=== PATIENT | male | born 1935 | race American Indian/Alaskan Native ===

== ENCOUNTER 2016-08-05 14:12 | Emergency (ER) | payer MEDICARE, OTHER ==
[2016-08-05 15:36] VITALS: BP 99/58
--- NOTE | 2016-08-05 16:57 | Emergency Department Report ---
HPI - General Chief Complaint: Chest Pain Time Seen by Provider: 08/05/16 16:18 - HPI HPI: This is an 81-year-old Afro[place] male presents to the emergency department by EMS from dialysis with complaint of having some abdominal pain and chest pain at that time the cause them to cut short his dialysis session. However at this current time the patient says that he is asymptomatic and all of these pains are gone away. He thinks it was just because he was getting dialysis at that time. He cannot remember his launch check out and says his primary care physician is a Dr. Vasquez. He has a past medical history of anemia and chronic kidney disease, end-stage renal disease on dialysis, hypercholesterolemia, hypertension. The patient's son was gone for a few minutes but is not bedside. The patient says that since he is asymptomatic that he wants to be discharged home. ED Past Medical Hx - Past Medical History Hx Hypertension: Yes Hx Heart Attack/AMI: Yes Hx Congestive Heart Failure: Yes Hx Deep Vein Thrombosis: No Hx Pulmonary Embolism: No Hx GERD: Yes Hx Renal Disease: Yes Hx Seizures: No Hx Kidney Stones: No Hx Asthma: Yes Hx COPD: Yes Hx Tuberculosis: No Hx Dementia: Yes Hx HIV: Yes Additional medical history: History of spontaneous pneumothorax in the past. Most of PMH obtained through old chart, as family and patient are very poor historians. - Surgical History Hx Coronary Stent: (PT AND PT SON DENIES CARDIAC STENT 03/05/13 IN PRE-OP.) Hx Pacemaker: No Hx Internal Defibrillator: No - Social History Smoking Status: Never Smoker Substance Use Type: None - Medications Home Medications: Home Medications Medication Instructions Recorded Confirmed Last Taken Type Sodium Bicarbonate 650 mg PO BID 11/28/12 08/05/16 08/05/16 History Atazanavir Sulfate [Reyataz] 200 mg PO BID 12/12/12 08/05/16 08/05/16 History Vit B Cplx #11/FA/C/Biot/Zn Ox 1 each PO DAILY 04/14/14 08/05/16 08/05/16 History [Dialyvite with Zinc Tablet] lamiVUDine [Epivir Hbv] 150 mg PO QDAY 04/14/14 08/05/16 08/05/16 History Temazepam [Restoril] 30 mg PO QHS 09/12/15 08/05/16 08/05/16 History Acetaminophen [Acetaminophen TAB] 325 mg PO PRN PRN 08/05/16 08/05/16 Unknown History Lanthanum Carbonate [Fosrenol] 1,000 mg PO AC 08/05/16 08/05/16 08/05/16 History Nevirapine [Viramune] 200 mg PO BID 08/05/16 08/05/16 08/05/16 History Nitroglycerin [Nitrostat] 0.4 mg PO PRN PRN MDD 3 doses 08/05/16 08/05/16 Unknown History Omeprazole Magnesium [PriLOSEC Otc] 20 mg PO QDAY 08/05/16 08/05/16 08/05/16 History cloNIDine [Catapres] 0.2 mg PO PRN PRN 08/05/16 08/05/16 Unknown History ED Review of Systems ROS: Stated complaint: ABD PAIN Other details as noted in HPI Comment: All other systems reviewed and negative Constitutional: denies: chills, fever Eyes: denies: eye pain, eye discharge, vision change ENT: denies: ear pain, throat pain Respiratory: denies: cough, shortness of breath, wheezing Cardiovascular: chest pain. denies: edema Gastrointestinal: abdominal pain. denies: vomiting Genitourinary: denies: urgency, dysuria Musculoskeletal: denies: back pain, joint swelling, arthralgia Skin: denies: rash, lesions Neurological: denies: headache, weakness, paresthesias Physical Exam - Physical Exam Vital Signs: Vital Signs 08/05/16 15:00 Temperature 97.2 F L Pulse Rate 82 Respiratory 16 Rate Blood Pressure 99/58 Blood Pressure 99/58 [Right] O2 Sat by Pulse 99 Oximetry Physical Exam: GENERAL: The patient is well-developed well-nourished. HEENT: Normocephalic. Atraumatic. Extraocular motions are intact. Patient has moist mucous membranes. NECK: Trachea is midline. CHEST/LUNGS: Clear to auscultation. There is no respiratory distress noted. HEART/CARDIOVASCULAR: Regular. There is no tachycardia. There is no gallop rub or murmur. ABDOMEN: Abdomen is soft, nontender. Patient has normal bowel sounds. There is no abdominal distention. SKIN: There is no rash. There is no edema. There is no diaphoresis. NEURO: The patient is awake, alert. AAO [address] but not time. The patient is cooperative. The patient has no focal neurologic deficits. The patient has normal speech. MUSCULOSKELETAL: There is no tenderness or deformity. There is no limitation range of motion. There is no evidence of acute injury. ED Course Vital Signs 08/05/16 15:00 Temperature 97.2 F L Pulse Rate 82 Respiratory 16 Rate Blood Pressure 99/58 Blood Pressure 99/58 [Right] O2 Sat by Pulse 99 Oximetry ED Medical Decision Making - Lab Data Result diagrams: 08/05/16 18:23 08/05/16 18:23 - EKG Data -: EKG Interpreted by Me EKG shows normal: sinus rhythm, axis, intervals, QRS complexes, ST-T waves ( nonspecific ST-T changes) Rate: normal - EKG Data When compared to previous EKG there are: previous EKG unavailable Interpretation: nonspecific ST-T wave emily - Medical Decision Making 81-year-old male presents to the emergency department with some chest pain and abdominal pain that occurred during dialysis. His symptoms have resolved. The patient refused any imaging. At first I believe he had refused labs as well but appears as if they got some on him. However it did not matter as the patient said that he wanted to leave and would not stay for any further imaging or testing and certainly did not appear willing to stay for any admission. I spoke with the patient regarding the concern for his comorbidities, advanced age , and complaints of chest and abdominal pain. He understands that there is a risk of heart attack, disability, coma, but the patient still would like to leave AGAINST MEDICAL ADVICE. However the patient does have some history of dementia and is AAO 2 so I made sure that the patient's son was bedside. He is not necessarily has DPO a but he has been next of kin. The same concerns were discussed with the son who says that if his father wants to leave that he should be allowed to do so. Both father and son have signed the AMA form. I let them know that if he changes his mind that he would be welcome back with open arms and will continue his evaluation. Critical Care Time: No Critical care attestation.: If time is entered above; I have spent that time in minutes in the direct care of this critically ill patient, excluding procedure time. ED Disposition Clinical Impression: ESRD (end stage renal disease) Chest pain Qualifiers: Chest pain type: unspecified Qualified Code(s): R07.9 - Chest pain, unspecified Abdominal pain Qualifiers: Abdominal location: generalized Qualified Code(s): R10.84 - Generalized abdominal pain Disposition: - LEFT AGAINST MED ADVICE Is pt being admited?: No Condition: Stable Instructions: Chest Pain (ED) Referrals: PRIMARY CARE, [Primary Care Provider] - 3-5 Days Forms: AMA Form
[2016-08-05 18:40] LABS: Basophils % (Auto) 0.5 % (0.0-1.8); Eosinophils % (Auto) 0.9 % (0.0-4.3); Hematocrit 37.9 % (35.5-45.6); Hemoglobin 12.2 gm/dl (11.8-15.2); Mean Corpuscular HGB Conc 32 % (32-34); Mean Corpuscular Hemoglobin 31 pg (28-32); Mean Corpuscular Volume 96 fl (84-94); Platelet Count 201 K/mm3 (140-440); Red Blood Count 3.93 M/mm3 (3.65-5.03); Red Cell Distribution Width 14.5 % (13.2-15.2); White Blood Count 8.4 K/mm3 (4.5-11.0)
[2016-08-05 19:01] LABS: Albumin 4.4 g/dL (3.9-5); Albumin/Globulin Ratio 1.4 %; BUN/Creatinine Ratio 4.3; Bilirubin,Total 0.4 mg/dL (0.1-1.2); Calcium 9.9 mg/dL (8.4-10.2); Chloride 94.4 mmol/L (98-107); Potassium 4.5 mmol/L (3.6-5.0); Total Protein 7.6 g/dL (6.3-8.2)
== END 2016-08-05 17:12 | disposition left against medical advice (07) ==
LOC: ED 14:12
DX: I12.0 Hypertensive chronic kidney disease with stage 5 chronic kidney disease or end stage renal disease (principal); N18.6 End stage renal disease; R10.84 Generalized abdominal pain; R07.9 Chest pain, unspecified; I25.2 Old myocardial infarction; K21.9 Gastro-esophageal reflux disease without esophagitis; J44.9 Chronic obstructive pulmonary disease, unspecified
CPT/HCPCS: 36415; 80053; 80061; 83690; 84484; 85025; 93005; 93010; 99284

== ENCOUNTER 2016-12-06 21:13 | Inpatient (IN) | payer MEDICARE ==
[2016-12-06] MEDS ORDERED: PROVENTIL IH ONE (22:22)
[2016-12-06] MEDS ORDERED: ATROVENT IH ONE (22:22)
--- NOTE | 2016-12-06 22:23 | Emergency Department Report ---
ED General Adult HPI - General Chief complaint: Dyspnea/Respdistress Stated complaint: SOB Time Seen by Provider: 12/06/16 22:09 Source: patient, family (the patient is accompanied by a friend, who indicates that he is not the patient's biological son. The patient's friend/accompany him and is Mr. Hong Gutierrez), RN notes reviewed, old records reviewed Mode of arrival: Wheelchair Limitations: Other (patient is a poor historian) - History of Present Illness Initial comments: This is an 81-year-old male, the patient is previously unknown to this provider , past medical history includes end-stage renal disease on dialysis, hypertension, HIV, COPD and dementia. Patient is brought to the hospital by EMS with a complaint of shortness of breath. Patient indicates that he's been coughing for the past 3 days, and he feels short of breath he further indicates that he has chest wall tightness with coughing, he denies nausea, vomiting, diaphoresis. The patient is unable to describe exacerbating or relieving factors. Patient was found to have a large right-sided pneumothorax on portable 1 view chest x-ray, and he gave informed consent to have a pigtail catheter placed. I placed a pigtail catheter with one attempt with no obvious complications, patient tolerated the procedure well, and a postprocedure x-ray demonstrated reexpansion the lungs. Case was discussed with the Hospital physician, Dr. Morales, and she accepted the patient to the medical service for spontaneous pneumothorax, most likely in the context of chronic COPD. The case was also discussed with the metal forger's assistant on-call, Dr. Teixeira, who agreed with this plan of care, and indicated he would see the patient. -: Gradual Severity scale (0 -10): 10 Quality: aching Consistency: constant Improves with: none Worsens with: none Associated Symptoms: confusion, chest pain, cough, shortness of breath - Related Data Home Medications Medication Instructions Recorded Confirmed Last Taken Sodium Bicarbonate 650 mg PO BID 11/28/12 08/05/16 08/05/16 Atazanavir Sulfate [Reyataz] 200 mg PO BID 12/12/12 08/05/16 08/05/16 B Complex 11/Folic/C/Biot/Zinc 1 each PO DAILY 04/14/14 08/05/16 08/05/16 [Dialyvite with Zinc Tablet] lamiVUDine [Epivir Hbv] 150 mg PO QDAY 04/14/14 08/05/16 08/05/16 Temazepam [Restoril] 30 mg PO QHS 09/12/15 08/05/16 08/05/16 Acetaminophen [Acetaminophen TAB] 325 mg PO PRN PRN 08/05/16 08/05/16 Unknown Lanthanum Carbonate [Fosrenol] 1,000 mg PO AC 08/05/16 08/05/16 08/05/16 Nevirapine [Viramune] 200 mg PO BID 08/05/16 08/05/16 08/05/16 Nitroglycerin [Nitrostat] 0.4 mg PO PRN PRN MDD 3 doses 08/05/16 08/05/16 Unknown Omeprazole Magnesium [PriLOSEC Otc] 20 mg PO QDAY 08/05/16 08/05/16 08/05/16 cloNIDine [Catapres] 0.2 mg PO PRN PRN 08/05/16 08/05/16 Unknown Allergies Allergy/AdvReac Type Severity Reaction Status Date / Time No Known Allergies Allergy Verified 08/05/16 15:41 ED Review of Systems ROS: Stated complaint: SOB Other details as noted in HPI Constitutional: denies: fever Eyes: denies: eye discharge ENT: denies: epistaxis Respiratory: cough, shortness of breath Cardiovascular: chest pain Gastrointestinal: denies: vomiting Genitourinary: as per HPI Musculoskeletal: as per HPI Skin: as per HPI Neurological: as per HPI, confusion Psychiatric: as per HPI ED Past Medical Hx - Past Medical History Previous Medical History?: Yes Hx Hypertension: Yes Hx Heart Attack/AMI: Yes Hx Congestive Heart Failure: Yes Hx Deep Vein Thrombosis: No Hx Pulmonary Embolism: No Hx GERD: Yes Hx Renal Disease: Yes Hx Arthritis: Yes Hx Seizures: No Hx Kidney Stones: No Hx Asthma: Yes Hx COPD: Yes Hx Tuberculosis: No Hx Dementia: Yes Hx HIV: Yes Additional medical history: History of spontaneous pneumothorax in the past. Most of PMH obtained through old chart, as family and patient are very poor historians. - Surgical History Past Surgical History?: Yes Hx Coronary Stent: (PT AND PT SON DENIES CARDIAC STENT 03/05/13 IN PRE-OP.) Hx Pacemaker: No Hx Internal Defibrillator: No - Social History Smoking Status: Never Smoker Substance Use Type: None - Medications Home Medications: Home Medications Medication Instructions Recorded Confirmed Last Taken Type Sodium Bicarbonate 650 mg PO BID 11/28/12 08/05/16 08/05/16 History Atazanavir Sulfate [Reyataz] 200 mg PO BID 12/12/12 08/05/16 08/05/16 History B Complex 11/Folic/C/Biot/Zinc 1 each PO DAILY 04/14/14 08/05/16 08/05/16 History [Dialyvite with Zinc Tablet] lamiVUDine [Epivir Hbv] 150 mg PO QDAY 04/14/14 08/05/16 08/05/16 History Temazepam [Restoril] 30 mg PO QHS 09/12/15 08/05/16 08/05/16 History Acetaminophen [Acetaminophen TAB] 325 mg PO PRN PRN 08/05/16 08/05/16 Unknown History Lanthanum Carbonate [Fosrenol] 1,000 mg PO AC 08/05/16 08/05/16 08/05/16 History Nevirapine [Viramune] 200 mg PO BID 08/05/16 08/05/16 08/05/16 History Nitroglycerin [Nitrostat] 0.4 mg PO PRN PRN MDD 3 doses 08/05/16 08/05/16 Unknown History Omeprazole Magnesium [PriLOSEC Otc] 20 mg PO QDAY 08/05/16 08/05/16 08/05/16 History cloNIDine [Catapres] 0.2 mg PO PRN PRN 08/05/16 08/05/16 Unknown History ED Physical Exam - General Limitations: Other (patient is demented, patient is a poor historian) General appearance: alert, in no apparent distress - Head Head exam: Present: atraumatic, normocephalic - Eye Eye exam: Present: normal appearance - ENT ENT exam: Present: normal exam, normal orophraynx, mucous membranes moist - Neck Neck exam: Present: normal inspection, full ROM. Absent: tenderness, meningismus - Respiratory Respiratory exam: Present: respiratory distress, accessory muscle use, decreased breath sounds - Cardiovascular Cardiovascular Exam: Present: normal rhythm, tachycardia, normal heart sounds. Absent: systolic murmur, diastolic murmur, rubs, gallop - GI/Abdominal GI/Abdominal exam: Present: soft, normal bowel sounds. Absent: distended, tenderness, guarding, rebound, rigid, pulsatile mass - Rectal Rectal exam: Present: deferred - Extremities Exam Extremities exam: Present: normal inspection, full ROM, normal capillary refill , other (there is a left upper extremity AV fistula, appropriate throat, no redness, pus or streaking). Absent: calf tenderness - Back Exam Back exam: Present: normal inspection. Absent: paraspinal tenderness, vertebral tenderness - Neurological Exam Neurological exam: Present: alert, other (Extraocular movements intact. Tongue midline. No facial droop. Facial sensation intact to light touch in the V1, V2 , V3 distribution bilaterally. 5 and 5 strength in 4 extremities.. Sensation is intact to light touch in 4 extremities.). Absent: motor sensory deficit - Psychiatric Psychiatric exam: Present: normal affect, normal mood - Skin Skin exam: Present: warm, dry, intact, normal color. Absent: rash ED Course Vital Signs 12/06/16 12/06/16 12/06/16 21:26 21:28 21:44 Temperature 97.3 F L 97 F L 97.3 F L Pulse Rate 111 H 122 H 111 H Respiratory 24 24 Rate Blood Pressure 105/55 105/65 Blood Pressure 105/56 [Right] O2 Sat by Pulse 70 L 78 L 89 Oximetry 12/06/16 12/06/16 12/06/16 21:45 21:46 21:48 Temperature Pulse Rate 92 H 107 H 106 H Respiratory 39 H 36 H 38 H Rate Blood Pressure 105/65 Blood Pressure [Right] O2 Sat by Pulse 70 L Oximetry 12/06/16 12/06/16 12/06/16 21:49 21:50 21:52 Temperature Pulse Rate 107 H 107 H 107 H Respiratory 40 H 33 H 44 H Rate Blood Pressure 105/65 105/65 105/65 Blood Pressure [Right] O2 Sat by Pulse Oximetry 12/06/16 12/06/16 12/06/16 21:54 21:58 23:10 Temperature Pulse Rate 109 H 102 H Respiratory 40 H 30 H 31 H Rate Blood Pressure 105/65 105/65 Blood Pressure [Right] O2 Sat by Pulse 89 86 84 Oximetry 12/06/16 12/06/16 12/06/16 23:12 23:14 23:16 Temperature Pulse Rate 103 H 105 H 105 H Respiratory 34 H 24 31 H Rate Blood Pressure 105/65 105/65 105/65 Blood Pressure [Right] O2 Sat by Pulse 86 88 85 Oximetry 12/06/16 12/06/16 12/06/16 23:18 23:20 23:22 Temperature Pulse Rate 102 H 101 H 106 H Respiratory 35 H 34 H 17 Rate Blood Pressure 105/65 105/65 105/65 Blood Pressure [Right] O2 Sat by Pulse 87 86 100 Oximetry 12/06/16 12/06/16 12/06/16 23:24 23:26 23:28 Temperature Pulse Rate 104 H 102 H 103 H Respiratory 34 H 29 H 38 H Rate Blood Pressure 105/65 105/65 105/65 Blood Pressure [Right] O2 Sat by Pulse 87 87 87 Oximetry 12/06/16 12/06/16 12/06/16 23:30 23:32 23:34 Temperature Pulse Rate 108 H 106 H 106 H Respiratory 29 H 38 H 33 H Rate Blood Pressure 105/65 105/65 105/65 Blood Pressure [Right] O2 Sat by Pulse 91 100 84 Oximetry 12/06/16 12/06/16 12/06/16 23:36 23:38 23:40 Temperature Pulse Rate 104 H 108 H 108 H Respiratory 35 H 38 H 37 H Rate Blood Pressure 105/65 105/65 105/65 Blood Pressure [Right] O2 Sat by Pulse 85 94 83 L Oximetry 12/06/16 12/06/16 12/06/16 23:42 23:44 23:46 Temperature Pulse Rate 108 H 106 H 106 H Respiratory 39 H 32 H 34 H Rate Blood Pressure 105/65 105/65 105/65 Blood Pressure [Right] O2 Sat by Pulse 77 L 79 L 88 Oximetry 12/06/16 12/06/16 12/06/16 23:48 23:50 23:52 Temperature Pulse Rate 103 H 104 H 104 H Respiratory 34 H 25 H 25 H Rate Blood Pressure 105/65 105/65 105/65 Blood Pressure [Right] O2 Sat by Pulse 89 93 92 Oximetry 12/06/16 12/06/16 12/06/16 23:54 23:56 23:58 Temperature Pulse Rate 103 H 102 H 96 H Respiratory 29 H 17 21 Rate Blood Pressure 105/65 105/65 105/65 Blood Pressure [Right] O2 Sat by Pulse 91 49 L Oximetry 12/07/16 12/07/16 12/07/16 00:00 00:02 00:04 Temperature Pulse Rate 96 H 95 H 97 H Respiratory 14 19 22 Rate Blood Pressure 105/65 105/65 105/65 Blood Pressure [Right] O2 Sat by Pulse 38 L Oximetry 12/07/16 12/07/16 12/07/16 00:06 00:08 00:10 Temperature Pulse Rate 96 H 93 H 96 H Respiratory 13 16 11 L Rate Blood Pressure 105/65 105/65 105/65 Blood Pressure [Right] O2 Sat by Pulse 91 Oximetry 12/07/16 12/07/16 12/07/16 00:12 00:14 00:16 Temperature Pulse Rate 95 H 94 H 96 H Respiratory 16 14 21 Rate Blood Pressure 105/65 108/65 108/65 Blood Pressure [Right] O2 Sat by Pulse Oximetry 12/07/16 12/07/16 12/07/16 00:18 00:20 00:22 Temperature Pulse Rate 98 H 95 H 94 H Respiratory 16 22 18 Rate Blood Pressure 108/65 108/65 108/65 Blood Pressure [Right] O2 Sat by Pulse 78 L 97 Oximetry 12/07/16 12/07/16 12/07/16 00:24 00:26 00:28 Temperature Pulse Rate 92 H 93 H 94 H Respiratory 19 23 25 H Rate Blood Pressure 108/65 108/65 108/65 Blood Pressure [Right] O2 Sat by Pulse Oximetry 12/07/16 12/07/16 12/07/16 00:30 00:32 00:34 Temperature Pulse Rate 95 H 93 H 94 H Respiratory 16 15 20 Rate Blood Pressure 108/65 108/65 108/65 Blood Pressure [Right] O2 Sat by Pulse 94 Oximetry 12/07/16 12/07/16 12/07/16 00:36 00:38 00:40 Temperature Pulse Rate 92 H 93 H 92 H Respiratory 24 21 20 Rate Blood Pressure 108/65 108/65 108/65 Blood Pressure [Right] O2 Sat by Pulse 100 Oximetry 12/07/16 12/07/16 12/07/16 00:42 00:44 00:46 Temperature Pulse Rate 91 H 93 H 92 H Respiratory 23 16 19 Rate Blood Pressure 108/65 102/81 102/81 Blood Pressure [Right] O2 Sat by Pulse 100 92 Oximetry 12/07/16 00:48 Temperature Pulse Rate 91 H Respiratory 27 H Rate Blood Pressure 102/81 Blood Pressure [Right] O2 Sat by Pulse 82 L Oximetry - Chest Tube Chest Tube Location: eighth interspace Chest Tube Procedure: betadine prep, sterile drapes applied, sterile dressing applied Anesthesia: 1% Lidocaine w/ Epi Volume Anesthetic (ccs): 10 [place]: Yes Number of Attempts: 1 Tube Drainage: see nurses notes Tube Sutured to Skin: Yes Post Procedure CXR?: Yes Progress: After informed consent was obtained from the patient, his chest wall was prepped and draped in the typical sterile fashion after being cleansed with Betadine. He was liberally anesthetized with lidocaine with epinephrine, and then a 10.2 [place] pigtail catheter was inserted over the superior border of the eighth rib, with an audible "gush" of air, and then attached to a Heimlich valve. Postprocedure x-ray demonstrated appropriate reexpansion of the lung, the patient tolerated the procedure well. No obvious complications at this time. ED Medical Decision Making - Lab Data Result diagrams: 12/06/16 22:40 12/06/16 22:40 Vital Signs 12/06/16 12/06/16 12/06/16 21:26 21:28 21:44 Temperature 97.3 F L 97 F L 97.3 F L Pulse Rate 111 H 122 H 111 H Respiratory 24 24 Rate Blood Pressure 105/55 105/65 Blood Pressure 105/56 [Right] O2 Sat by Pulse 70 L 78 L 89 Oximetry 12/06/16 12/06/16 12/06/16 21:45 21:46 21:48 Temperature Pulse Rate 92 H 107 H 106 H Respiratory 39 H 36 H 38 H Rate Blood Pressure 105/65 Blood Pressure [Right] O2 Sat by Pulse 70 L Oximetry 12/06/16 12/06/16 12/06/16 21:49 21:50 21:52 Temperature Pulse Rate 107 H 107 H 107 H Respiratory 40 H 33 H 44 H Rate Blood Pressure 105/65 105/65 105/65 Blood Pressure [Right] O2 Sat by Pulse Oximetry 12/06/16 12/06/16 12/06/16 21:54 21:58 23:10 Temperature Pulse Rate 109 H 102 H Respiratory 40 H 30 H 31 H Rate Blood Pressure 105/65 105/65 Blood Pressure [Right] O2 Sat by Pulse 89 86 84 Oximetry 12/06/16 12/06/16 12/06/16 23:12 23:14 23:16 Temperature Pulse Rate 103 H 105 H 105 H Respiratory 34 H 24 31 H Rate Blood Pressure 105/65 105/65 105/65 Blood Pressure [Right] O2 Sat by Pulse 86 88 85 Oximetry 12/06/16 12/06/16 12/06/16 23:18 23:20 23:22 Temperature Pulse Rate 102 H 101 H 106 H Respiratory 35 H 34 H 17 Rate Blood Pressure 105/65 105/65 105/65 Blood Pressure [Right] O2 Sat by Pulse 87 86 100 Oximetry 12/06/16 12/06/16 12/06/16 23:24 23:26 23:28 Temperature Pulse Rate 104 H 102 H 103 H Respiratory 34 H 29 H 38 H Rate Blood Pressure 105/65 105/65 105/65 Blood Pressure [Right] O2 Sat by Pulse 87 87 87 Oximetry 12/06/16 12/06/16 12/06/16 23:30 23:32 23:34 Temperature Pulse Rate 108 H 106 H 106 H Respiratory 29 H 38 H 33 H Rate Blood Pressure 105/65 105/65 105/65 Blood Pressure [Right] O2 Sat by Pulse 91 100 84 Oximetry 12/06/16 12/06/16 12/06/16 23:36 23:38 23:40 Temperature Pulse Rate 104 H 108 H 108 H Respiratory 35 H 38 H 37 H Rate Blood Pressure 105/65 105/65 105/65 Blood Pressure [Right] O2 Sat by Pulse 85 94 83 L Oximetry 12/06/16 12/06/16 12/06/16 23:42 23:44 23:46 Temperature Pulse Rate 108 H 106 H 106 H Respiratory 39 H 32 H 34 H Rate Blood Pressure 105/65 105/65 105/65 Blood Pressure [Right] O2 Sat by Pulse 77 L 79 L 88 Oximetry 12/06/16 12/06/16 12/06/16 23:48 23:50 23:52 Temperature Pulse Rate 103 H 104 H 104 H Respiratory 34 H 25 H 25 H Rate Blood Pressure 105/65 105/65 105/65 Blood Pressure [Right] O2 Sat by Pulse 89 93 92 Oximetry 12/06/16 12/06/16 12/06/16 23:54 23:56 23:58 Temperature Pulse Rate 103 H 102 H 96 H Respiratory 29 H 17 21 Rate Blood Pressure 105/65 105/65 105/65 Blood Pressure [Right] O2 Sat by Pulse 91 49 L Oximetry 12/07/16 12/07/16 12/07/16 00:00 00:02 00:04 Temperature Pulse Rate 96 H 95 H 97 H Respiratory 14 19 22 Rate Blood Pressure 105/65 105/65 105/65 Blood Pressure [Right] O2 Sat by Pulse 38 L Oximetry 12/07/16 12/07/16 12/07/16 00:06 00:08 00:10 Temperature Pulse Rate 96 H 93 H 96 H Respiratory 13 16 11 L Rate Blood Pressure 105/65 105/65 105/65 Blood Pressure [Right] O2 Sat by Pulse 91 Oximetry 12/07/16 12/07/16 12/07/16 00:12 00:14 00:16 Temperature Pulse Rate 95 H 94 H 96 H Respiratory 16 14 21 Rate Blood Pressure 105/65 108/65 108/65 Blood Pressure [Right] O2 Sat by Pulse Oximetry 12/07/16 12/07/16 12/07/16 00:18 00:20 00:22 Temperature Pulse Rate 98 H 95 H 94 H Respiratory 16 22 18 Rate Blood Pressure 108/65 108/65 108/65 Blood Pressure [Right] O2 Sat by Pulse 78 L 97 Oximetry 12/07/16 12/07/16 12/07/16 00:24 00:26 00:28 Temperature Pulse Rate 92 H 93 H 94 H Respiratory 19 23 25 H Rate Blood Pressure 108/65 108/65 108/65 Blood Pressure [Right] O2 Sat by Pulse Oximetry 12/07/16 12/07/16 12/07/16 00:30 00:32 00:34 Temperature Pulse Rate 95 H 93 H 94 H Respiratory 16 15 20 Rate Blood Pressure 108/65 108/65 108/65 Blood Pressure [Right] O2 Sat by Pulse 94 Oximetry 12/07/16 12/07/16 12/07/16 00:36 00:38 00:40 Temperature Pulse Rate 92 H 93 H 92 H Respiratory 24 21 20 Rate Blood Pressure 108/65 108/65 108/65 Blood Pressure [Right] O2 Sat by Pulse 100 Oximetry 12/07/16 12/07/16 12/07/16 00:42 00:44 00:46 Temperature Pulse Rate 91 H 93 H 92 H Respiratory 23 16 19 Rate Blood Pressure 108/65 102/81 102/81 Blood Pressure [Right] O2 Sat by Pulse 100 92 Oximetry 12/07/16 00:48 Temperature Pulse Rate 91 H Respiratory 27 H Rate Blood Pressure 102/81 Blood Pressure [Right] O2 Sat by Pulse 82 L Oximetry Lab Results 12/06/16 12/06/16 12/06/16 Range/Units 22:40 22:40 22:40 WBC 10.6 (4.5-11.0) K/mm3 RBC 4.01 (3.65-5.03) M/mm3 Hgb 12.6 (11.8-15.2) gm/dl Hct 38.7 (35.5-45.6) % MCV 97 H (84-94) fl MCH 31 (28-32) pg MCHC 33 (32-34) % RDW 16.9 H (13.2-15.2) % Plt Count 230 (140-440) K/mm3 Lymph % (Auto) 5.3 L (13.4-35.0) % [place] % (Auto) 5.6 (0.0-7.3) % Eos % (Auto) 0.1 (0.0-4.3) % Baso % (Auto) 1.1 (0.0-1.8) % Lymph # 0.6 L (1.2-5.4) K/mm3 [place] # 0.6 (0.0-0.8) K/mm3 Eos # 0.0 (0.0-0.4) K/mm3 Baso # 0.1 (0.0-0.1) K/mm3 Seg Neutrophils % 87.9 H (40.0-70.0) % Seg Neutrophils # 9.3 H (1.8-7.7) K/mm3 PT (12.2-14.9) Sec. INR (0.87-1.13) APTT (24.2-36.6) Sec. D-Dimer (0-234) ng/mlDDU Sodium 145 (137-145) mmol/L Potassium 4.5 (3.6-5.0) mmol/L Chloride 92.8 L (98-107) mmol/L Carbon Dioxide 26 (22-30) mmol/L Anion Gap 31 mmol/L BUN 42 H (9-20) mg/dL Creatinine 9.3 H (0.8-1.5) mg/dL Estimated GFR 7 ml/min BUN/Creatinine Ratio 5 % Glucose 165 H (75-100) mg/dL Calcium 10.2 (8.4-10.2) mg/dL Magnesium 2.20 (1.7-2.3) mg/dL Total Bilirubin 0.30 (0.1-1.2) mg/dL AST 19 (5-40) units/L ALT 11 (7-56) units/L Alkaline Phosphatase 95 (35-129) units/L Troponin T 0.091 H (0.00-0.029) ng/mL NT-Pro-B Natriuret Pep (0-900) pg/mL Total Protein 7.7 (6.3-8.2) g/dL Albumin 4.5 (3.9-5) g/dL Albumin/Globulin Ratio 1.4 % 12/06/16 12/06/16 Range/Units 22:40 22:40 WBC (4.5-11.0) K/mm3 RBC (3.65-5.03) M/mm3 Hgb (11.8-15.2) gm/dl Hct (35.5-45.6) % MCV (84-94) fl MCH (28-32) pg MCHC (32-34) % RDW (13.2-15.2) % Plt Count (140-440) K/mm3 Lymph % (Auto) (13.4-35.0) % [place] % (Auto) (0.0-7.3) % Eos % (Auto) (0.0-4.3) % Baso % (Auto) (0.0-1.8) % Lymph # (1.2-5.4) K/mm3 [place] # (0.0-0.8) K/mm3 Eos # (0.0-0.4) K/mm3 Baso # (0.0-0.1) K/mm3 Seg Neutrophils % (40.0-70.0) % Seg Neutrophils # (1.8-7.7) K/mm3 PT 14.3 (12.2-14.9) Sec. INR 1.06 (0.87-1.13) APTT 33.5 (24.2-36.6) Sec. D-Dimer 409.22 H (0-234) ng/mlDDU Sodium (137-145) mmol/L Potassium (3.6-5.0) mmol/L Chloride (98-107) mmol/L Carbon Dioxide (22-30) mmol/L Anion Gap mmol/L BUN (9-20) mg/dL Creatinine (0.8-1.5) mg/dL Estimated GFR ml/min BUN/Creatinine Ratio % Glucose (75-100) mg/dL Calcium (8.4-10.2) mg/dL Magnesium (1.7-2.3) mg/dL Total Bilirubin (0.1-1.2) mg/dL AST (5-40) units/L ALT (7-56) units/L Alkaline Phosphatase (35-129) units/L Troponin T (0.00-0.029) ng/mL NT-Pro-B Natriuret Pep 3773 H (0-900) pg/mL Total Protein (6.3-8.2) g/dL Albumin (3.9-5) g/dL Albumin/Globulin Ratio % - EKG Data -: EKG Interpreted by Me - EKG Data 12/07/16 01:10 Sinus tachycardia, 109 beats per minute, low voltage, QTC prolonged, not morphologically consistent with STEMI, atrial enlargement - Radiology Data Radiology results: report reviewed, image reviewed interpreted by me: X-ray #1 demonstrates large right-sided pneumothorax. X-ray #2 demonstrates resolution of pneumothorax, with appropriate placement of pigtail catheter - Medical Decision Making Differential diagnosis: COPD, pneumothorax, pneumonia, CHF, electrolyte derangement Assessment and plan: 81-year-old male with spontaneous pneumothorax. He is doing well now once a pigtail catheter has been placed. Prior to acquisition of chest x-ray d-dimer was ordered, and we contacted the lab to request that the d-dimer be canceled. Unfortunately, this request did not carry through, and a d-dimer resulted as positive. However, given the obvious source of shortness of breath with the patient's large right-sided pneumothorax, I find it very unlikely that he has a concurrent pneumothorax and pulmonary embolus. The elevated d-dimer is most likely a false positive. In any event, patient is saturating well, and requires further inpatient management. Critical care attestation.: If time is entered above; I have spent that time in minutes in the direct care of this critically ill patient, excluding procedure time. ED Disposition Clinical Impression: Pneumothorax Qualifiers: Pneumothorax type: other pneumothorax Qualified Code(s): J93.83 - Other pneumothorax Disposition: DC-09 OP ADMIT IP TO THIS HOSP Is pt being admited?: Yes Condition: Good
[2016-12-06 22:59] LABS: Basophils % (Auto) 1.1 % (0.0-1.8); Eosinophils % (Auto) 0.1 % (0.0-4.3); Hematocrit 38.7 % (35.5-45.6); Hemoglobin 12.6 gm/dl (11.8-15.2); Mean Corpuscular HGB Conc 33 % (32-34); Mean Corpuscular Hemoglobin 31 pg (28-32); Mean Corpuscular Volume 97 fl (84-94); Platelet Count 230 K/mm3 (140-440); Red Blood Count 4.01 M/mm3 (3.65-5.03); Red Cell Distribution Width 16.9 % (13.2-15.2); White Blood Count 10.6 K/mm3 (4.5-11.0)
[2016-12-06 23:10] LABS: INR 1.06 (0.87-1.13)
[2016-12-06 23:11] LABS: Partial Thromboplastin Time 33.5 Sec. (24.2-36.6)
[2016-12-06 23:21] LABS: Albumin 4.5 g/dL (3.9-5); Albumin/Globulin Ratio 1.4 %; Bilirubin,Total 0.3 mg/dL (0.1-1.2); Calcium 10.2 mg/dL (8.4-10.2); Chloride 92.8 mmol/L (98-107); Magnesium 2.2 mg/dL (1.7-2.3); Potassium 4.5 mmol/L (3.6-5.0); Total Protein 7.7 g/dL (6.3-8.2)
[2016-12-06] MEDS ORDERED: KETALAR IV ONE ×2 (23:25)
[2016-12-06] MEDS ORDERED: XYLOCAINE 2%/ EPI 1:200,000 INFILTRATI ONE (23:25)
[2016-12-06] MEDS ORDERED: KETALAR ONE (23:34)
[2016-12-06] MEDS ORDERED: DULCOLAX PR PRN (23:39)
[2016-12-06] MEDS ORDERED: TYLENOL PO PRN (23:39)
[2016-12-06] MEDS ORDERED: MILK OF MAGNESIA PO PRN (23:39)
[2016-12-06] MEDS ORDERED: PROVENTIL IH PRN (23:39)
[2016-12-06] MEDS ORDERED: ZOFRAN IV PRN (23:39)
--- NOTE | 2016-12-06 23:41 | History and Physical Report ---
History of Present Illness Date of examination: 12/06/16 History of present illness: 81-year-old male with a history of COPD, end-stage renal disease on dialysis Monday, HIV comes emergency room with complaints of shortness of breath 3 days and a nonproductive cough. Also complaining of chest pain in the epigastric area which she said over the last 4 weeks, described as a throbbing sensation, anterior mid tibia nature lasting for 10-15 minutes, intensity 6/10, no radiation, he can identify exacerbating or relieving factors. Admits to nausea, no diaphoresis or palpitation .line review of systems Review Of Systems: Constitutional: no weight loss Ears, eyes, nose, mouth and throat: no nasal congestion, no nasal discharge, no sinus pressure, blurry vision, diplopia Neck: No neck pain or rigidity. Cardiovascular:no orthopnea, palpitations Respiratory: +shortness of breath, cough Gastrointestinal: abdominal pain, hematochezia Genitourinary : no dysuria, frequency , hematuria Musculoskeletal: no muscle ache Integumentary: no rash, no pruritis Neurological: no parathesias, focal weakness Endocrine: no cold or heat intolerance, no polyuria or polydipsia Hematologic/Lymphatic: no easy bruising, no easy bleeding, no gland swelling Allergic/Immunologic: no urticaria, no angioedema. PAST MEDICAL HISTORY:COPD, end-stage renal disease on dialysis Monday, HIV PAST SURGICAL HISTORY: None FAMILY HISTORY: Hypertension SOCIAL HISTORY: Denies alcohol, tobacco, or drugs Medications and Allergies Allergies Allergy/AdvReac Type Severity Reaction Status Date / Time No Known Allergies Allergy Verified 08/05/16 15:41 Home Medications Medication Instructions Recorded Confirmed Last Taken Type Sodium Bicarbonate 650 mg PO BID 11/28/12 08/05/16 08/05/16 History Atazanavir Sulfate [Reyataz] 200 mg PO BID 12/12/12 08/05/16 08/05/16 History B Complex 11/Folic/C/Biot/Zinc 1 each PO DAILY 04/14/14 08/05/16 08/05/16 History [Dialyvite with Zinc Tablet] lamiVUDine [Epivir Hbv] 150 mg PO QDAY 04/14/14 08/05/16 08/05/16 History Temazepam [Restoril] 30 mg PO QHS 09/12/15 08/05/16 08/05/16 History Acetaminophen [Acetaminophen TAB] 325 mg PO PRN PRN 08/05/16 08/05/16 Unknown History Lanthanum Carbonate [Fosrenol] 1,000 mg PO AC 08/05/16 08/05/16 08/05/16 History Nevirapine [Viramune] 200 mg PO BID 08/05/16 08/05/16 08/05/16 History Nitroglycerin [Nitrostat] 0.4 mg PO PRN PRN MDD 3 doses 08/05/16 08/05/16 Unknown History Omeprazole Magnesium [PriLOSEC Otc] 20 mg PO QDAY 08/05/16 08/05/16 08/05/16 History cloNIDine [Catapres] 0.2 mg PO PRN PRN 08/05/16 08/05/16 Unknown History Exam - Physical Exam Narrative exam: Gen. appearance: Patient lying in bed in no acute distress HEENT: Normocephalic/atraumatic, pupils equal round reactive to light, extra alkaline movement intact, no scleral icterus, no JVD or thyromegaly or nodule, neck is supple, mucous membrane moist, no erythema or exudate Heart: S1-S2, regular rate and rhythm Lungs: Clear to auscultation bilateral breathing comfortable Abdomen: Positive bowel sounds, nontender, nondistended, no organomegaly Extremities: No edema, cyanosis, clubbing Neuro:: Oriented 3 , cranial nerves II-12 intact, speech, motor intact Skin: No rash, nodules, warm dry - Constitutional Vitals: Temp Pulse Resp BP Pulse Ox 97.3 F L 109 H 30 H 105/65 86 12/06/16 21:44 12/06/16 21:54 12/06/16 21:58 12/06/16 21:54 12/06/16 21:58 Results - Labs CBC & Chem 7: 12/06/16 22:40 12/06/16 22:40 Labs: Abnormal lab results 12/06/16 12/06/16 12/06/16 Range/Units 22:40 22:40 22:40 MCV 97 H (84-94) fl RDW 16.9 H (13.2-15.2) % Lymph % (Auto) 5.3 L (13.4-35.0) % Lymph # 0.6 L (1.2-5.4) K/mm3 Seg Neutrophils % 87.9 H (40.0-70.0) % Seg Neutrophils # 9.3 H (1.8-7.7) K/mm3 D-Dimer (0-234) ng/mlDDU Chloride 92.8 L (98-107) mmol/L BUN 42 H (9-20) mg/dL Creatinine 9.3 H (0.8-1.5) mg/dL Glucose 165 H (75-100) mg/dL Troponin T 0.091 H (0.00-0.029) ng/mL NT-Pro-B Natriuret Pep (0-900) pg/mL 12/06/16 12/06/16 Range/Units 22:40 22:40 MCV (84-94) fl RDW (13.2-15.2) % Lymph % (Auto) (13.4-35.0) % Lymph # (1.2-5.4) K/mm3 Seg Neutrophils % (40.0-70.0) % Seg Neutrophils # (1.8-7.7) K/mm3 D-Dimer 409.22 H (0-234) ng/mlDDU Chloride (98-107) mmol/L BUN (9-20) mg/dL Creatinine (0.8-1.5) mg/dL Glucose (75-100) mg/dL Troponin T (0.00-0.029) ng/mL NT-Pro-B Natriuret Pep 3773 H (0-900) pg/mL - Imaging and Cardiology EKG: image reviewed Chest x-ray: image reviewed Assessment and Plan Assessment Pneumothorax Elevated d-dimer, rule out PE End-stage renal disease needing dialysis COPD HIV Plan Admit to medicine Consult pulmonary Cardiac enzymes, V/Q Consult renal for dialysis DVT prophylaxis Continue appropriate outpatient medications
--- NOTE | 2016-12-07 00:48 | XRay Report ---
FINAL REPORT EXAM: XR CHEST 1V AP HISTORY: s/p pigtail catheter placement TECHNIQUE: A portable view of the chest was obtained. Comparison made to the study of 08/05/2016. FINDINGS: There are chronic interstitial changes in both lungs. There is patchy airspace disease in both lung bases. There is an 18.4 millimeter nodule in the left apex which was not present on the previous study. In the right hemithorax there is a catheter in place. There is no evidence of pneumothorax. The lungs do not appear to be congested. The heart size is normal. The thoracic aorta is mildly tortuous. The skeletal structures reveal multilevel disc degeneration in the thoracic spine. IMPRESSION: COPD. Increased markings in both lung bases which have worsened since the previous study. Indeterminate 18.4 millimeter nodule in the left apex which has developed since the previous study. No evidence of right-sided pneumothorax.
[2016-12-07 03:32] LABS: Basophils % (Auto) 0.4 % (0.0-1.8); Eosinophils % (Auto) 0.3 % (0.0-4.3); Hematocrit 38.2 % (35.5-45.6); Hemoglobin 12.4 gm/dl (11.8-15.2); Mean Corpuscular HGB Conc 33 % (32-34); Mean Corpuscular Hemoglobin 32 pg (28-32); Mean Corpuscular Volume 97 fl (84-94); Platelet Count 209 K/mm3 (140-440); Red Blood Count 3.93 M/mm3 (3.65-5.03); Red Cell Distribution Width 17.3 % (13.2-15.2); White Blood Count 9.2 K/mm3 (4.5-11.0)
[2016-12-07 03:59] LABS: Calcium 10.1 mg/dL (8.4-10.2); Chloride 94.6 mmol/L (98-107); Potassium 5.4 mmol/L (3.6-5.0)
[2016-12-07 04:21] LABS: Creatine Kinase MB 5.1 ng/mL (0.0-4.0)
--- NOTE | 2016-12-07 07:32 | XRay Report ---
AP CHEST: HISTORY: Dyspnea This exam is just presented to me for interpretation. Compared to 09/12/15. A large right pneumothorax has developed which is estimated at 50%. There is mild mediastinal shift to the left. The left lung is generally clear. Heart size is within normal limits. Advanced emphysema is noted. IMPRESSION: Large right pneumothorax. Emphysema. These findings were noted by Dr. Aguilar in the emergency department at 0110 hours.
--- NOTE | 2016-12-07 07:49 | Nuclear Medicine Report ---
FINAL REPORT PROCEDURE: NM LUNG SCAN PERF/VENT TECHNIQUE: Five mCi Tc-99m MAA was injected IV for pulmonary perfusion imaging in multiple projections. Fifteen mCi Tc-99m DTPA aerosol was inhaled for pulmonary ventilation imaging in multiple projections. Injection site: RIGHT antecubital fossa. CPT 45567 REGULATORY GUIDELINES: The patient was released based upon guidelines established in [place] State Regulations for Protection Against Radiation, Chapter 1199-03-29-35, Release of Individuals Containing Radioactive Drugs or Implants. HISTORY: eval for pe COMPARISON: Chest x-ray 12/06/2016 FINDINGS: Perfusion: There is suboptimal inspiration but no suspicious perfusion defect is noted.. Ventilation: There is suboptimal inspiration on the initial phase. There are no mismatched defects with the perfusion study.. IMPRESSION: Low probability of pulmonary embolism.
[2016-12-07] MEDS ORDERED: MORPHINE IV PRN (07:56)
[2016-12-07] MEDS ORDERED: MORPHINE ONE (08:07)
[2016-12-07] MEDS: BENADRYL IV PRN ×2 (08:39→22:51)
--- NOTE | 2016-12-07 09:04 | Consultation ---
History of Present Illness Consult date: 12/07/16 Requesting physician: THAD SANZ Reason for consult: COPD, pneumothorax History of present illness: PULMONARY/CCM CONSULT NOTE (Full dictation # [id number]) Please see dictated notes for full details Medications and Allergies Allergies Allergy/AdvReac Type Severity Reaction Status Date / Time No Known Allergies Allergy Verified 08/05/16 15:41 Home Medications Medication Instructions Recorded Confirmed Last Taken Type Sodium Bicarbonate 650 mg PO BID 11/28/12 12/07/16 08/05/16 History Atazanavir Sulfate [Reyataz] 200 mg PO BID 12/12/12 12/07/16 08/05/16 History B Complex 11/Folic/C/Biot/Zinc 1 each PO DAILY 04/14/14 12/07/16 08/05/16 History [Dialyvite with Zinc Tablet] lamiVUDine [Epivir Hbv] 150 mg PO QDAY 04/14/14 12/07/16 08/05/16 History Temazepam [Restoril] 30 mg PO QHS 09/12/15 12/07/16 08/05/16 History Acetaminophen [Acetaminophen TAB] 325 mg PO PRN PRN 08/05/16 12/07/16 Unknown History Lanthanum Carbonate [Fosrenol] 1,000 mg PO AC 08/05/16 12/07/16 08/05/16 History Nevirapine [Viramune] 200 mg PO BID 08/05/16 12/07/16 08/05/16 History Nitroglycerin [Nitrostat] 0.4 mg PO PRN PRN MDD 3 doses 08/05/16 12/07/16 Unknown History Omeprazole Magnesium [PriLOSEC Otc] 20 mg PO QDAY 08/05/16 12/07/16 08/05/16 History cloNIDine [Catapres] 0.2 mg PO PRN PRN 08/05/16 12/07/16 Unknown History Active Meds: Active Medications Acetaminophen (Tylenol) 650 mg PO Q4H PRN PRN Reason: Pain MILD(1-3)/Fever >100.5/BELTRAN Last Admin: 12/07/16 04:52 Dose: 650 mg Acetaminophen/Hydrocodone Bitart ([place] 10/325) 1 each PO Q4H PRN PRN Reason: Pain, Moderate (4-6) Albuterol (Proventil) 2.5 mg IH Q3HRT PRN PRN Reason: Shortness Of Breath Bisacodyl (Dulcolax) 10 mg [place] QDAY PRN PRN Reason: Constipation unrelieved by MOM Diphenhydramine HCl (Benadryl) 25 mg IV Q6H PRN PRN Reason: Itching Last Admin: 12/07/16 08:39 Dose: 25 mg Lamivudine (Epivir) 75 mg PO DAILY FREDDY Magnesium Hydroxide (Milk Of Magnesia) 30 ml PO Q4H PRN PRN Reason: Constipation Miscellaneous Medication (Atazanavir Sulfate [Reyataz]) 200 mg PO BID FREDDY Miscellaneous Medication (Lanthanum Carbonate [Fosrenol]) 1,000 mg PO AC FREDDY Nevirapine (Viramune) 200 mg PO BID FREDDY Ondansetron HCl (Zofran) 4 mg IV Q8H PRN PRN Reason: N/V unrelieved by Reglan Last Admin: 12/07/16 08:03 Dose: 4 mg Pantoprazole Sodium (Protonix) 20 mg PO QDAY FREDDY Sodium Bicarbonate (Sodium Bicarbonate) 650 mg PO BID [facility] Physical Examination Vital signs: Vital Signs Temp Pulse Resp BP Pulse Ox 97.3 F L 111 H 24 105/55 70 L 12/06/16 21:26 12/06/16 21:26 12/06/16 21:26 12/06/16 21:26 12/06/16 21:26 Results - Laboratory Findings CBC and BMP: 12/07/16 03:00 12/07/16 03:00 PT/INR, D-dimer PT 14.3 Sec. (12.2-14.9) 12/06/16 22:40 INR 1.06 (0.87-1.13) 12/06/16 22:40 D-Dimer 409.22 ng/mlDDU (0-234) H 12/06/16 22:40 Abnormal lab findings: Abnormal Labs 12/07/16 12/07/16 12/07/16 03:00 03:00 03:00 MCV 97 H RDW 17.3 H [place] % (Auto) 8.1 H Seg Neutrophils % 77.1 H Potassium 5.4 H Chloride 94.6 L BUN 44 H Creatinine 9.9 H Glucose 112 H CK-MB (CK-2) 5.1 H Troponin T 0.097 H
--- NOTE | 2016-12-07 09:09 | Consultation ---
History of Present Illness - History of Present Illness Thank you for the consultation patient was evaluated today. Source of information; patient himself current records were also reviewed History of presenting illness; Patient is a 81-year-old -[place] gentleman who is currently established with our practice for renal replacement therapy for his last dialysis. The patient has been admitted here with hypotension as well as hypoxemia and has been noted to have pneumothorax currently being evaluated by pulmonary service. Patient also feels weak and tired. He does not recall the name of his security escort nor does he know where to go for dialysis for which I did call his son and got information that is currently being dialyzed nontender facility under Dr. Hinkle. Patient is currently on dialysis Monday. He has known history of HIV. Shortness of breath has been present for last 3-4 days and he also does have mild cough without any fever or chills. Past medical history is significant for end-stage renal disease currently in maintenance dialysis Anemia and end-stage renal disease Secondary hyperparathyroidism Allergies: no known drug allergies Social history: no history of any alcohol or tobacco abuse Family history: noncontributory for ventilator disorder Review of system is positive for shortness of breath borderline blood pressure Complete review of systems obtained pertinent positive above mother's review of systems negative Physical examination General: No acute distress HEENT: Oral mucosa moist no pharyngeal erythema no pallor or icterus no uremic order Neck: Supple no evidence of any thyromegaly trachea midline no JVD Chest: Diminished breath sounds laterally Heart: Regular rate and rhythm S1-S2 heard no S3-S4 Abdomen: Soft nontender no renal bruit no CVA tenderness no suprapubic fullness no organomegaly Extremity: No edema very dry skin no peripheral cyanosis pulses palpable Neurological: Alert awake follows command grossly nonfocal examination Back: Nontender thoracolumbar spine Musculoskeletal: No joint effusion noted Skin: No petechial rash/noted Assessment and plan End-stage renal disease patient; has been evaluated by pulmonary service Blood pressure has been borderline with mild tachycardia and no evidence of any fluid overload based on the chest x-ray and CAT scan patient does not have any peripheral edema no JVD He has been admitted here with pneumothorax and shortness of breath; at this time there is no emergent indication for renal replacement therapy Hyperkalemia mild to monitor and follow evidence of acidosis hemoglobin 12.4 platelet count 209,000 We'll follow-up on the basic metabolic profile again may treat him with Kayexalate If his potassium is consistently going up can consider dialysis today If remains stable can be considered for hemodialysis tomorrow morning Issues with memory loss forgetfulness patient did not know the name of his physician nor the facility versus going for dialysis Plan of care was discussed with patient all questions were answered We'll continue to follow and make recommendations from renal standpoint Case was also discussed with patient's son over the phone We'll continue to follow and make recommendations from renal standpoint If you have any questions please feel free to contact me at [phone] Medications and Allergies Allergies Allergy/AdvReac Type Severity Reaction Status Date / Time No Known Allergies Allergy Verified 08/05/16 15:41 Home Medications Medication Instructions Recorded Confirmed Last Taken Type Sodium Bicarbonate 650 mg PO BID 11/28/12 12/07/16 08/05/16 History Atazanavir Sulfate [Reyataz] 200 mg PO BID 12/12/12 12/07/16 08/05/16 History B Complex 11/Folic/C/Biot/Zinc 1 each PO DAILY 04/14/14 12/07/16 08/05/16 History [Dialyvite with Zinc Tablet] lamiVUDine [Epivir Hbv] 150 mg PO QDAY 04/14/14 12/07/16 08/05/16 History Temazepam [Restoril] 30 mg PO QHS 09/12/15 12/07/16 08/05/16 History Acetaminophen [Acetaminophen TAB] 325 mg PO PRN PRN 08/05/16 12/07/16 Unknown History Lanthanum Carbonate [Fosrenol] 1,000 mg PO AC 08/05/16 12/07/16 08/05/16 History Nevirapine [Viramune] 200 mg PO BID 08/05/16 12/07/16 08/05/16 History Nitroglycerin [Nitrostat] 0.4 mg PO PRN PRN MDD 3 doses 08/05/16 12/07/16 Unknown History Omeprazole Magnesium [PriLOSEC Otc] 20 mg PO QDAY 08/05/16 12/07/16 08/05/16 History cloNIDine [Catapres] 0.2 mg PO PRN PRN 08/05/16 12/07/16 Unknown History Active Meds: Active Medications Acetaminophen (Tylenol) 650 mg PO Q4H PRN PRN Reason: Pain MILD(1-3)/Fever >100.5/BELTRAN Last Admin: 12/07/16 04:52 Dose: 650 mg Acetaminophen/Hydrocodone Bitart ([place] 10/325) 1 each PO Q4H PRN PRN Reason: Pain, Moderate (4-6) Albuterol (Proventil) 2.5 mg IH Q3HRT PRN PRN Reason: Shortness Of Breath Bisacodyl (Dulcolax) 10 mg SD QDAY PRN PRN Reason: Constipation unrelieved by [facility] Diphenhydramine HCl (Benadryl) 25 mg IV Q6H PRN PRN Reason: Itching Last Admin: 12/07/16 08:39 Dose: 25 mg Lamivudine (Epivir) 75 mg PO DAILY FREDDY Magnesium Hydroxide (Milk Of Magnesia) 30 ml PO Q4H PRN PRN Reason: Constipation Miscellaneous Medication (Atazanavir Sulfate [Reyataz]) 200 mg PO BID FREDDY Miscellaneous Medication (Lanthanum Carbonate [Fosrenol]) 1,000 mg PO AC FREDDY Nevirapine (Viramune) 200 mg PO BID FREDDY Ondansetron HCl (Zofran) 4 mg IV Q8H PRN PRN Reason: N/V unrelieved by Reglan Last Admin: 12/07/16 08:03 Dose: 4 mg Pantoprazole Sodium (Protonix) 20 mg PO QDAY FREDDY Sodium Bicarbonate (Sodium Bicarbonate) 650 mg PO BID FREDDY Exam - Vital Signs Vital signs: Vital Signs Temp Pulse Resp BP Pulse Ox 97.3 F L 111 H 24 105/55 70 L 12/06/16 21:26 12/06/16 21:26 12/06/16 21:26 12/06/16 21:26 12/06/16 21:26 Results - Lab Results 12/07/16 03:00 12/07/16 03:00 Most recent lab results Calcium 10.1 mg/dL (8.4-10.2) 12/07/16 03:00 Magnesium 2.20 mg/dL (1.7-2.3) 12/06/16 22:40
[2016-12-07] MEDS ORDERED: LAMIVUDINE 150 MG PO SCH (10:00)
[2016-12-07] MEDS ORDERED: EPIVIR PO SCH (10:00)
[2016-12-07] MEDS ORDERED: NON-FORMULARY (Atazanavir Sulfate [Reyataz] 200 MG) PO SCH (10:00)
[2016-12-07] MEDS ORDERED: NON-FORMULARY (Omeprazole Magnesium [Prilosec Otc] 20 MG) PO SCH (10:00)
[2016-12-07] MEDS: NORCO 10/325 PO PRN (11:49)
[2016-12-07] MEDS: PROTONIX PO SCH (11:49)
[2016-12-07] MEDS: SODIUM BICARBONATE PO SCH ×2 (11:50→22:43)
--- NOTE | 2016-12-07 12:13 | Event Note ---
Date: 12/07/[address] Haque Back to [facility] on monday I will review CT chest and if no significant issues he may need to f/up with surgeon outpatient
--- NOTE | 2016-12-07 12:29 | Progress Note ---
Assessment and Plan Assessment and plan: Patient is 81-year-old man with a history of HIV, end-stage renal disease on hemodialysis Monday without Monday, hypertension, GERD, COPD and dementia who presented to the emergency department at [facility] with shortness of breath and cough. Chest x-ray reported as large right pneumothorax , advanced emphysema, patient elevated d-dimer and therefore he underwent a VQ scan which showed low probability of PE. -Acute hypoxia respiratory failure due to the pneumothorax: Treat with oxygen -Acute right spontaneous pneumothorax most likely related to emphysema: Pulmonology is following, it appears they have spoke with Dr. Haque, CT surgeon, continue Pig tail Chest tube -?Acute exacerbation of COPD: Pulmonology is following, treat with nebs -End-stage renal disease on hemodialysis with hyperkalemia: Discussed with striper spray gun, needing hemodialysis, repeat levels in am -SIRS present on admission: continue to monitor, repeat wbc -Chronic elevated troponin and pro-bnp: monitor on telemetry overnight -DVT prophylaxis: scd ordered, will add sq heparin -HIV: continue home medications. History Interval history: Patient was seen and examined. Follow-up on current diagnosis/shortness of breath but still present but improved. Overnight uneventful. Patient denies any chest pain, nausea/vomiting or severe headaches. Imaging, nursing note, chart, labs and old chart reviewed. Discussed with patient. Hospitalist Physical - Physical exam Narrative exam: GEN: Thin frail man NAD, AWAKE, ALERT, ORIENTATED 3 HEENT: NCAT, EOMI, PERRL, OP Clear NECK: supple, no adenopathy, no thyromegaly, no JVD CVS/HEART: RRR, NORMAL S1S2, NO JVD, pulses present bilaterally CHEST/LUNGS: Diminished breath sounds bilaterally, Symmetrical chest expansion, reduced right sided air entry with right chest tube in place GI/Abdomen: soft, NTND, good bowel sounds, no guarding or rebound /Bladder: no suprapubic tenderness, no CVA or paraspinal tenderness EXT/Skin: no c/c/e, no obvious rash MSK: FROM x 4 Neuro: CN 2-12 grossly intact, no new focal deficits Psych: calm - Constitutional Vitals: Temp Pulse Resp BP Pulse Ox 97.6 F 80 14 93/55 3 L 12/07/16 05:00 12/07/16 11:16 12/07/16 11:16 12/07/16 11:16 12/07/16 11:16 Results - Labs CBC & Chem 7: 12/07/16 03:00 12/07/16 03:00 Labs: Laboratory Last Values WBC 9.2 K/mm3 (4.5-11.0) 12/07/16 03:00 RBC 3.93 M/mm3 (3.65-5.03) 12/07/16 03:00 Hgb 12.4 gm/dl (11.8-15.2) 12/07/16 03:00 Hct 38.2 % (35.5-45.6) 12/07/16 03:00 MCV 97 fl (84-94) H 12/07/16 03:00 MCH 32 pg (28-32) 12/07/16 03:00 MCHC 33 % (32-34) 12/07/16 03:00 RDW 17.3 % (13.2-15.2) H 12/07/16 03:00 Plt Count 209 K/mm3 (140-440) 12/07/16 03:00 Lymph % (Auto) 14.1 % (13.4-35.0) 12/07/16 03:00 [place] % (Auto) 8.1 % (0.0-7.3) H 12/07/16 03:00 Eos % (Auto) 0.3 % (0.0-4.3) 12/07/16 03:00 Baso % (Auto) 0.4 % (0.0-1.8) 12/07/16 03:00 Lymph # 1.3 K/mm3 (1.2-5.4) 12/07/16 03:00 [place] # 0.7 K/mm3 (0.0-0.8) 12/07/16 03:00 Eos # 0.0 K/mm3 (0.0-0.4) 12/07/16 03:00 Baso # 0.0 K/mm3 (0.0-0.1) 12/07/16 03:00 Seg Neutrophils % 77.1 % (40.0-70.0) H 12/07/16 03:00 Seg Neutrophils # 7.1 K/mm3 (1.8-7.7) 12/07/16 03:00 PT 14.3 Sec. (12.2-14.9) 12/06/16 22:40 INR 1.06 (0.87-1.13) 12/06/16 22:40 APTT 33.5 Sec. (24.2-36.6) 12/06/16 22:40 D-Dimer 409.22 ng/mlDDU (0-234) H 12/06/16 22:40 Sodium 143 mmol/L (137-145) 12/07/16 03:00 Potassium 5.4 mmol/L (3.6-5.0) H 12/07/16 03:00 Chloride 94.6 mmol/L (98-107) L 12/07/16 03:00 Carbon Dioxide 23 mmol/L (22-30) 12/07/16 03:00 Anion Gap 31 mmol/L 12/07/16 03:00 BUN 44 mg/dL (9-20) H 12/07/16 03:00 Creatinine 9.9 mg/dL (0.8-1.5) H 12/07/16 03:00 Estimated GFR 6 ml/min 12/07/16 03:00 BUN/Creatinine Ratio 4 % 12/07/16 03:00 Glucose 112 mg/dL (75-100) H 12/07/16 03:00 Calcium 10.1 mg/dL (8.4-10.2) 12/07/16 03:00 Magnesium 2.20 mg/dL (1.7-2.3) 12/06/16 22:40 Total Bilirubin 0.30 mg/dL (0.1-1.2) 12/06/16 22:40 AST 19 units/L (5-40) 12/06/16 22:40 ALT 11 units/L (7-56) 12/06/16 22:40 Alkaline Phosphatase 95 units/L (35-129) 12/06/16 22:40 Total Creatine Kinase 154 units/L (55-170) 12/07/16 08:30 CK-MB (CK-2) 5.0 ng/mL (0.0-4.0) H 12/07/16 08:30 CK-MB (CK-2) Rel Index 3.2 (0-4) 12/07/16 08:30 Troponin T 0.098 ng/mL (0.00-0.029) H 12/07/16 08:30 NT-Pro-B Natriuret Pep 3773 pg/mL (0-900) H 12/06/16 22:40 Total Protein 7.7 g/dL (6.3-8.2) 12/06/16 22:40 Albumin 4.5 g/dL (3.9-5) 12/06/16 22:40 Albumin/Globulin Ratio 1.4 % 12/06/16 22:40
--- NOTE | 2016-12-07 13:52 | Cat Scan Report ---
CT scan of chest without IV contrast: Compared to 04/14/14. History: Spontaneous pneumothorax. Interstitial lung disease. Findings: No endobronchial or mediastinal mass. No mediastinal, hilar or axillary adenopathy. No pleural or pericardial effusion. Severe emphysematous changes with multiple bulla bilaterally. Also noted is centrilobular emphysema. Insitu right chest tube. No evidence of pneumothorax. There is pleural-based noncalcified 1.7 cm nodule identified in the left upper lobe series 2 image 60. Not seen previous study dated 04/14/14. Suspected airspace opacities in left lower lobe. Impression: Severe emphysematous changes as detailed above. Pleural-based nodule left upper lobe. Suspected airspace densities left lower lobe probably superimposed pneumonitis.
[2016-12-07] MEDS: LANTHANUM CARBONATE 1000 MG PO SCH (17:36)
[2016-12-07] MEDS: VIRAMUNE PO SCH (18:48)
[2016-12-07 21:14] LABS: Calcium 9.6 mg/dL (8.4-10.2); Chloride 92.1 mmol/L (98-107); Potassium 4.3 mmol/L (3.6-5.0)
[2016-12-08] MEDS: VIRAMUNE PO SCH ×4 (00:39→22:09)
--- NOTE | 2016-12-08 01:07 | Consultation ---
PULMONARY CONSULTATION CONSULTING PHYSICIAN: Dr. Delgado. REASON FOR CONSULTATION: Spontaneous pneumothorax. Shortness of breath, chest pain. CHIEF COMPLAINT AND HISTORY OF PRESENT ILLNESS: As follows. The patient is an 81-year-old -[place] male with past medical history significant really only for a diagnosis of hypertension and apparently COPD. He had denied a history of COPD, but that is listed in his records, came into the Emergency Room, brought in by a friend. He reportedly had been coughing according to him for a few days and then yesterday he had accompanying shortness of breath. He had denied any fevers. He had denied any chills. He denied any rhinorrhea, itchy eyes, any suggestion of upper and lower respiratory tract infection. He denied nausea, vomiting, diaphoresis. He has less than [id number] smoking history, quit smoking in 1961. He denied any trauma to the chest wall. He denied any significant weight loss or gain in the preceding few weeks to months, any suggestion of occult malignancy. In the Emergency Room, he was evaluated. The chest pain was pleuritic in nature. It was described as a 10/10, otherwise. His chest x-ray revealed a large right pneumothorax, small bore chest tube was placed at the bedside and stopped by to see him and when I stopped by to see him, he was resting in bed, still complaining of some pain at the site of chest tube insertion, but overall feeling better and no longer coughing like before. That is the history of presentation as I have. PAST MEDICAL HISTORY: Hypertension, congestive heart failure, coronary artery disease, gastroesophageal reflux disease, chronic kidney disease, history of COPD, history of dementia, reportedly history of HIV positivity and the records actually mentioned that he has a history of a spontaneous pneumothorax in the past. He apparently has had treatment for spontaneous pneumothorax in the past. MEDICATIONS: He was on at the time I stopped by to see him have been reviewed. Pertinent medications include he is on lamivudine 75 mg p.o. daily, nevirapine 200 mg p.o. b.i.d., Protonix 20 mg p.o. daily, sodium bicarbonate 650 mg p.o. b.i.d. ALLERGIES: No known drug allergies. DIET: Well-built gentleman, a little bit on the . Denies significant weight loss or gain in the preceding few weeks to months. FAMILY AND SOCIAL HISTORY: Lives in the community. Less than [id number] very remote tobacco smoking history, quit in 1961. Denies current alcohol, tobacco, or illicit drug use or abuse. Otherwise noncontributory. REVIEW OF SYSTEMS: Complete 14-system review of systems has been reviewed. Pertinent positives and/or negatives as in body of history above, otherwise they are noncontributory. PHYSICAL EXAMINATION: VITAL SIGNS: At presentation in the Emergency Room and since he has been afebrile, temperature 97.3, pulse 111, respiratory rate 20, blood pressure was 105/55, oxygen sats was 70% at the time of presentation. He is currently on about 3 liters nasal cannula, O2 sats 98%. GENERAL: He is alert. He is resting peacefully in bed, looks his stated age, does not appear in significant pain, perhaps mild respiratory distress. HEAD, EYES, EARS, NOSE AND THROAT: Pupils are equal, round, about 3 mm, reactive to light. He has arcus senilis. No scleral icterus, no conjunctival erythema. Oropharynx is a Mallampati #2, oropharynx partially edentulous, mild oropharyngeal pallor, no palpable lymph nodes in the cervical, supraclavicular, or submandibular lymph node chains. HEART: Heart sounds 1 and 2 are heard. They were regular in rate and rhythm. No rubs, no murmurs, no carotid bruit, no jugular venous distention is noted. LUNGS: Auscultation of both lung gruber, bilateral breath sounds are hard, slightly diminished, slightly prolonged expiratory phase. He has inspiratory crackles in the bases bilaterally. He is not using accessory muscles for respiration. He has Heimlich valve attached to a small bore chest tube in the right mid lateral chest wall. No bleeding or exudation around it. ABDOMEN: Soft, full, it was protuberant, but not tender. No palpable organomegaly. Slightly distended. EXTREMITIES: Without overt digital clubbing, cyanosis, or pedal edema. The skin is dry, poor skin turgor, mild tenting. No rash, no cellulitis. NEUROLOGIC: He moves all extremities. Pupils equal, round, reactive to light. Extraocular muscle movements are intact. PSYCHIATRIC: He appears to have a normal mood and affect. He does have mild cognitive dysfunction. He does have a history of dementia. LABORATORY DATA: From my review are as follows: White cell count 9200, hemoglobin 12.4, hematocrit 38.2, platelet count 209. INR 1.06. Serum sodium 143, potassium 5.4, chloride 95, bicarbonate 23, BUN 44, creatinine 9.9, glucose 112. Troponin 0.097. BNP was elevated. I have reviewed the chest x-ray. The presentation on chest x-ray definitely does show a large right pneumothorax with collapse of the lung medially on the left lung and the collapsed lung do suggest increased interstitial markings in the bases. No consolidative change. There is a questionable left upper lobe nodule, which I do not think is a confluence of shadows. Post chest tube chest x-ray confirms reexpansion of the lung. The chest tube is directed superomedially. Persistent increased interstitial markings in the bases and persistent well circumscribed left upper lobe nodule. ASSESSMENT AND PLAN: 1. Acute spontaneous pneumothorax that may be recurrent. 2. Abnormal chest x-ray with pulmonary fibrosis. 3. Acute chronic obstructive pulmonary disease exacerbation. 4. Lung nodule. 5. Chronic kidney disease. 6. Hyperkalemia. 7. History of congestive heart failure. PLAN: We will keep the chest tube connected to the Heimlich valve and hold on connecting to suction. A CT scan of the chest with high resolution CT cuts will be ordered both to evaluate for the left upper lobe nodule, but also for interstitial lung disease and subpleural blebs. Cardiology consultation will be requested as this is a second event. A decision will have to be made on pleurodesis, which will be best accomplished with VATS but taking his comorbidities into consideration. Good analgesia will be offered. He should continue pain control. He should continue incentive spirometry. He has been seen by the supervisor cap and hat production and hyperkalemia has been addressed. We will continue the supplemental bicarbonate. Supplemental oxygen will be continued to keep sats greater than or equal to 94% and flu and pneumonia vaccination will be per protocol. Thank you very much for the consult. We will follow along. We will make further recommendations as picture progresses/becomes clearer. JOB# [id number] ANTHONY/LELIA
[2016-12-08] MEDS: NORCO 10/325 PO PRN ×3 (03:30→20:41)
[2016-12-08] MEDS: LANTHANUM CARBONATE 1000 MG PO SCH ×3 (07:59→17:12)
[2016-12-08] MEDS ORDERED: NACL 0.9% 100 ML IV PRN (09:15)
--- NOTE | 2016-12-08 09:15 | Progress Note ---
Subjective Interval history: Patient was seen today for follow-up, on many renal related issues shortness of breath is about the same Pulmonary notes reviewed Abnormal troponin, potassium better Better aware about renal related issues Interdisciplinary notes were reviewed Vitals labs intake and output medications were reviewed from today Allergies: Reviewed Social history: Reviewed Family history: Reviewed Physical examination HEENT: Oral mucosa moist no pharyngeal erythema Neck: Supple no JVD Chest: Clear to auscultation no crackles rales or wheezes Heart: Regular rate and rhythm S1-S2 heard no S3-S4 Abdomen: Soft nontender no renal bruit no CVA tenderness no suprapubic fullness Extremity: Mild edema dry skin no peripheral cyanosis pulses palpable Neurological: Alert awake Musculoskeletal: No joint effusion noted Assessment and plan End-stage renal disease: Patient is currently on maintenance hemodialysis, patient currently goes to [facility] dialysis facility He will be dialyzed today for 3-1/2 hours and depending how he does he can be placed on Monday schedule CT scan showed evidence of severe emphysema and pleural based nodule in the left upper lobe/with some changes of pneumonitis pulmonary following Memory loss forgetfulness appears to be multifactorial some from the aging brain , renal failure rule out other causes, patient did not know the name off his dialysis clinic nor did he remember who is his technical intern, I had to find that out from the family History of HIV, currently on medication Anemia and incisional disease currently hemoglobin is normal Mild hyperkalemia potassium is 5.4 currently 4.3 Abnormal troponin, please follow consider cardiology evaluation Admitted with pneumothorax borderline blood pressure clinically doing well hemodialysis as tolerated ultrafiltration as tolerated Labs were discussed with patient explained and simple Italian Will continue to follow and make recommendation from renal standpoint Objective - Vital Signs Vital signs: Vital Signs - 12hr 12/07/16 12/07/16 12/08/16 22:00 23:07 05:26 Temperature 98.2 F 98.7 F Pulse Rate 89 87 Pulse Rate [ 68 Right Radial] Respiratory 16 20 18 Rate Blood Pressure 100/60 103/61 O2 Sat by Pulse 92 95 91 Oximetry 12/08/16 12/08/16 07:48 07:49 Temperature Pulse Rate 79 Pulse Rate [ Right Radial] Respiratory 18 Rate Blood Pressure O2 Sat by Pulse 95 Oximetry - Lab 12/07/16 03:00 12/07/16 20:40 Most recent lab results Calcium 9.6 mg/dL (8.4-10.2) 12/07/16 20:40 Magnesium 2.20 mg/dL (1.7-2.3) 12/06/16 22:40
[2016-12-08] MEDS ORDERED: NACL 0.9% 1000 ML 2,000 ML ONE (14:04)
[2016-12-08] MEDS: HEPARIN SUB-Q SCH ×2 (14:40→22:21)
[2016-12-08] MEDS: NON-FORMULARY PO SCH (14:40)
[2016-12-08] MEDS: PROTONIX PO SCH (14:40)
--- NOTE | 2016-12-08 18:09 | Progress Note ---
Assessment and Plan Assessment and Plan 1. Acute respiratory failure due to pneumothorax: On oxygen. 2. Acute right spontaneous pneumothorax: n right chest tube. Pulmonologists following, surgeon following. 3. COPD exacerbation: Continue with bronchodilators, pulmonologists following. 4. Left Lung mass: Will discuss with pt and family for possible Bx or conservative Mx given multiple medical problems and surgical fitness of pt should it be required. discussed with Pumonologist. 5. End-stage renal disease: On hemodialysis. Nephrology following. 6. Chronic elevated troponin and proBNP: Will monitor. 7. HIV: Continue with current therapy. 8. DVT prophylaxis: On heparin. 9. SIRS present on admission: Will monitor. Subjective Date of service: 12/08/16 Principal diagnosis: Pneumothorax Interval history: No overnight events. Right chest tube for removal. Objective - Constitutional Vitals: Vital Signs - 12hr 12/08/16 12/08/16 12/08/16 07:48 07:49 09:12 Temperature 98.1 F Pulse Rate 79 90 Respiratory 18 16 Rate Blood Pressure 97/49 O2 Sat by Pulse 95 79 L Oximetry 12/08/16 12/08/16 12/08/16 09:13 10:25 10:30 Temperature Pulse Rate 92 H 74 73 Respiratory Rate Blood Pressure 97/49 100/57 108/49 O2 Sat by Pulse 82 L Oximetry 12/08/16 12/08/16 12/08/16 10:45 11:00 11:15 Temperature Pulse Rate 74 77 75 Respiratory Rate Blood Pressure 101/48 103/53 108/51 O2 Sat by Pulse Oximetry 12/08/16 12/08/16 12/08/16 11:30 11:45 12:00 Temperature Pulse Rate 75 75 64 Respiratory Rate Blood Pressure 91/40 89/49 92/55 O2 Sat by Pulse Oximetry 12/08/16 12/08/16 12/08/16 12:15 12:30 12:45 Temperature Pulse Rate 83 78 89 Respiratory Rate Blood Pressure 101/59 96/55 99/57 O2 Sat by Pulse Oximetry 12/08/16 12/08/16 12/08/16 13:00 13:15 13:30 Temperature Pulse Rate 69 86 86 Respiratory Rate Blood Pressure 96/50 93/47 98/51 O2 Sat by Pulse Oximetry 12/08/16 12/08/16 12/08/16 13:45 14:00 14:10 Temperature 98.6 F 98.9 F Pulse Rate 83 75 76 Respiratory 20 20 Rate Blood Pressure 105/50 113/58 96/55 O2 Sat by Pulse 94 Oximetry 12/08/16 15:56 Temperature 98.1 F Pulse Rate 92 H Respiratory 18 Rate Blood Pressure 90/54 O2 Sat by Pulse 92 Oximetry General appearance: Present: no acute distress, well-nourished - EENT Eyes: PERRL, EOM intact ENT: hearing intact, clear oral mucosa Ears: bilateral: normal - Neck Neck: supple, normal ROM - Respiratory Respiratory effort: normal Respiratory: bilateral: CTA - Breasts Breasts: normal - Cardiovascular Rhythm: regular Heart Sounds: Present: S1 & S2. Absent: gallop, rub Extremities: pulses intact, No edema, normal color, Full ROM - Gastrointestinal General gastrointestinal: Present: soft, non-tender, non-distended, normal bowel sounds - Genitourinary Male genitourinary: normal - Integumentary Integumentary: clear, warm, dry - Musculoskeletal Musculoskeletal: 1, strength equal bilaterally - Neurologic Neurologic: moves all extremities - Psychiatric Psychiatric: memory intact, appropriate mood/affect, intact judgment & insight - Labs CBC & Chem 7: 12/07/16 03:00 12/07/16 20:40 Labs: Abnormal lab results 12/07/16 12/08/16 12/08/16 Range/Units 20:40 07:37 15:58 Chloride 92.1 L (98-107) mmol/L BUN 55 H (9-20) mg/dL Creatinine 10.5 H (0.8-1.5) mg/dL Glucose 128 H (75-100) mg/dL POC Glucose 128 H 141 H (70-105)
--- NOTE | 2016-12-08 18:23 | Progress Note ---
Assessment and Plan Acute Hypoxemic Respiratory Failure Spontaneous pneumothorax (recurrent) MARIS Lung Mass (new since August 13 2015 CXR) HIV +ve Severe COPD with acute exacerbation Dementia (I discussed lung mass with patient and his son at his request; he believes his Dad will not want further intervention on the lung mass even if it were a cancer ) - remove chest tube in am - continue supplemental oxygen - prn analgesia re: pleuritic chest pain - watch for a few hours thereafter as high risk for acute recurrence re: severity of bullous emphysema - continue other care as per attending Subjective Date of service: 12/08/16 Principal diagnosis: Spontaneous Pneumothorax; Lung Mass (Left Upper Lobe) Interval history: Patient is seen today for: Spontaneous Pneumothorax; Lung Mass (Left Upper Lobe) Seen and examined at bedside; 24hour events reviewed; nursing and respiratory care staff consulted; no adverse overnight events reported to me; complaining of more pain in right upper chest this evening; states begining to feel like before he came; pleuritic; no hemoptysis; + cough; no emesis or overt aspiration ; chest tube in place Objective Vital Signs - 12hr 12/08/16 12/08/16 12/08/16 07:48 07:49 09:12 Temperature 98.1 F Pulse Rate 79 90 Respiratory 18 16 Rate Blood Pressure 97/49 O2 Sat by Pulse 95 79 L Oximetry 12/08/16 12/08/16 12/08/16 09:13 10:25 10:30 Temperature Pulse Rate 92 H 74 73 Respiratory Rate Blood Pressure 97/49 100/57 108/49 O2 Sat by Pulse 82 L Oximetry 12/08/16 12/08/16 12/08/16 10:45 11:00 11:15 Temperature Pulse Rate 74 77 75 Respiratory Rate Blood Pressure 101/48 103/53 108/51 O2 Sat by Pulse Oximetry 12/08/16 12/08/16 12/08/16 11:30 11:45 12:00 Temperature Pulse Rate 75 75 64 Respiratory Rate Blood Pressure 91/40 89/49 92/55 O2 Sat by Pulse Oximetry 12/08/16 12/08/16 12/08/16 12:15 12:30 12:45 Temperature Pulse Rate 83 78 89 Respiratory Rate Blood Pressure 101/59 96/55 99/57 O2 Sat by Pulse Oximetry 12/08/16 12/08/16 12/08/16 13:00 13:15 13:30 Temperature Pulse Rate 69 86 86 Respiratory Rate Blood Pressure 96/50 93/47 98/51 O2 Sat by Pulse Oximetry 12/08/16 12/08/16 12/08/16 13:45 14:00 14:10 Temperature 98.6 F 98.9 F Pulse Rate 83 75 76 Respiratory 20 20 Rate Blood Pressure 105/50 113/58 96/55 O2 Sat by Pulse 94 Oximetry 12/08/16 15:56 Temperature 98.1 F Pulse Rate 92 H Respiratory 18 Rate Blood Pressure 90/54 O2 Sat by Pulse 92 Oximetry Constitutional: alert, appears uncomfortable Eyes: non-icteric ENT: oropharynx moist, other (no aphthous ulcers) Neck: supple, no lymphadenopathy Effort: mildly labored Ascultation: Bilateral: diminished breath sounds, rhonchi, other (breath sounds all lung zones) Percussion: Bilateral: not dull Cardiovascular: regular rate and rhythm, other (no R/M) Gastrointestinal: normoactive bowel sounds, soft, non-tender, non-distended, other (No HSM) Integumentary: other (dry; poor skin turgor; no rash) Extremities: no cyanosis, no edema, pulses normal, no ischemia or petechiae, other (bilateral pedal pulses palpable) Neurologic: normal mental status, non-focal exam, pupils equal and round, motor strength normal and, other (no fasciculations or tremors) Psychiatric: anxious CBC and BMP: 12/07/16 03:00 12/07/16 20:40 ABG, PT/INR, D-dimer: PT/INR, D-dimer PT 14.3 Sec. (12.2-14.9) 12/06/16 22:40 INR 1.06 (0.87-1.13) 12/06/16 22:40 D-Dimer 409.22 ng/mlDDU (0-234) H 12/06/16 22:40 Abnormal lab findings: Abnormal Labs 12/07/16 12/07/16 12/07/16 03:00 03:00 03:00 MCV 97 H RDW 17.3 H [place] % (Auto) 8.1 H Seg Neutrophils % 77.1 H Potassium 5.4 H Chloride 94.6 L BUN 44 H Creatinine 9.9 H Glucose 112 H POC Glucose CK-MB (CK-2) 5.1 H Troponin T 0.097 H 12/07/16 12/07/16 12/08/16 08:30 20:40 07:37 MCV RDW [place] % (Auto) Seg Neutrophils % Potassium Chloride 92.1 L BUN 55 H Creatinine 10.5 H Glucose 128 H POC Glucose 128 H CK-MB (CK-2) 5.0 H Troponin T 0.098 H 12/08/16 15:58 MCV RDW [place] % (Auto) Seg Neutrophils % Potassium Chloride BUN Creatinine Glucose POC Glucose 141 H CK-MB (CK-2) Troponin T Chest x-ray: image reviewed (lung still expanded on right side; chest tube in place)
--- NOTE | 2016-12-08 21:52 | XRay Report ---
FINAL REPORT PROCEDURE: Chest. TECHNIQUE: Portable AP view. HISTORY: Status post chest tube, chest pain. COMPARISON: Chest 12/06/2016. FINDINGS: The patient is rotated to the left. The heart and mediastinum appear normal. The right lung is clear. There is hyperlucency in the upper half of the right lung consistent with bullous emphysema. There is a noncalcified nodule in the left upper lobe that measures approximately 18 millimeters. A neoplastic process is not excluded. There is a right thoracostomy catheter. There is no evidence of a pneumothorax. There are no pleural effusions. There is a vascular stent in the medial soft tissues of the left arm. There are metallic anchor pins in the right humeral head. The lateral end of the right clavicle appears to have been resected. IMPRESSION: Indeterminate left upper lobe nodule with further evaluation recommended. No evidence of a pneumothorax. Bullous emphysema.
[2016-12-09] MEDS: MORPHINE IV PRN (05:42)
[2016-12-09] MEDS: VIRAMUNE PO SCH ×2 (09:05→21:46)
[2016-12-09] MEDS: LANTHANUM CARBONATE 1000 MG PO SCH ×3 (09:05→17:02)
[2016-12-09] MEDS: NON-FORMULARY PO SCH (09:05)
[2016-12-09] MEDS: HEPARIN SUB-Q SCH ×2 (09:06→21:46)
[2016-12-09] MEDS: PROTONIX PO SCH (09:06)
--- NOTE | 2016-12-09 09:40 | Progress Note ---
Assessment and Plan Acute Hypoxemic Respiratory Failure Spontaneous pneumothorax (recurrent) MARIS Lung Mass (new since August 13 2015 CXR) HIV +ve Severe COPD with acute exacerbation Dementia (I discussed lung mass with patient and his son at his request; he believes his Dad will not want further intervention on the lung mass even if it were a cancer ) - chest tube removed at bedside - stat f/up CXR ordered - continue supplemental oxygen - prn analgesia re: pleuritic chest pain - watch for a few hours thereafter as high risk for acute recurrence re: severity of bullous emphysema - I suggest surgical and oncology consultation and evaluation so expert opinion can be shared with family (as this may well be a lung cancer) to help make an informed decision - continue bronchodilators and pulmonary toilet for severe COPD Subjective Date of service: 12/09/16 Principal diagnosis: Spontaneous Pneumothorax; Lung Mass (Left Upper Lobe) Interval history: Patient is seen today for: Spontaneous Pneumothorax; Lung Mass (Left Upper Lobe) Seen and examined at bedside; 24hour events reviewed; nursing and respiratory care staff consulted; no adverse overnight events reported to me; still with pleuritic chest pain at chest tube site; no N/V/F/C; he wants to know what is in his lungs he states just before he states that he is not sure. + cough no hemoptysis Objective Vital Signs - 12hr 12/08/16 12/09/16 12/09/16 23:58 00:53 04:01 Temperature 97.4 F L 98.4 F Pulse Rate 85 73 76 Respiratory 18 18 Rate Blood Pressure 93/61 103/63 O2 Sat by Pulse 86 97 Oximetry 12/09/16 05:42 Temperature Pulse Rate Respiratory 22 Rate Blood Pressure O2 Sat by Pulse Oximetry Constitutional: alert, appears uncomfortable Eyes: non-icteric ENT: oropharynx moist, other (no aphthous ulcers) Neck: supple, no lymphadenopathy Effort: mildly labored Ascultation: Bilateral: diminished breath sounds (upper zone predominant), rhonchi, other (breath sounds all lung zones) Percussion: Bilateral: not dull Cardiovascular: regular rate and rhythm, other (no R/M) Gastrointestinal: normoactive bowel sounds, soft, non-tender, non-distended, other (No HSM) Integumentary: other (dry; poor skin turgor; no rash) Extremities: no cyanosis, no edema, pulses normal, no ischemia or petechiae, other (bilateral pedal pulses palpable) Neurologic: normal mental status, non-focal exam, pupils equal and round, motor strength normal and, other (no fasciculations or tremors) Psychiatric: mood appropriate, affect normal CBC and BMP: 12/07/16 03:00 12/07/16 20:40 ABG, PT/INR, D-dimer: PT/INR, D-dimer PT 14.3 Sec. (12.2-14.9) 12/06/16 22:40 INR 1.06 (0.87-1.13) 12/06/16 22:40 D-Dimer 409.22 ng/mlDDU (0-234) H 12/06/16 22:40 Abnormal lab findings: Abnormal Labs 12/07/16 12/07/16 12/07/16 03:00 03:00 03:00 MCV 97 H RDW 17.3 H [place] % (Auto) 8.1 H Seg Neutrophils % 77.1 H Potassium 5.4 H Chloride 94.6 L BUN 44 H Creatinine 9.9 H Glucose 112 H POC Glucose CK-MB (CK-2) 5.1 H Troponin T 0.097 H 12/07/16 12/07/16 12/08/16 08:30 20:40 07:37 MCV RDW [facility] % (Auto) Seg Neutrophils % Potassium Chloride 92.1 L BUN 55 H Creatinine 10.5 H Glucose 128 H POC Glucose 128 H CK-MB (CK-2) 5.0 H Troponin T 0.098 H 12/08/16 15:58 MCV RDW [facility] % (Auto) Seg Neutrophils % Potassium Chloride BUN Creatinine Glucose POC Glucose 141 H CK-MB (CK-2) Troponin T Chest x-ray: image reviewed (no recurrence of PTX; chest tube in right hemithorax and directed cephalad) Allied health notes reviewed: nursing
--- NOTE | 2016-12-09 12:02 | Progress Note ---
Assessment and Plan Assessment and plan: Patient is 81-year-old man with a history of chronic hypoxic respiratory failure on home O2 most likely due to COPD, O2 HIV, end-stage renal disease on hemodialysis Monday without Monday, hypertension, GERD, and Dementia who presented to the emergency department at [facility] with shortness of breath and cough. Chest x-ray reported as large right pneumothorax , advanced emphysema, patient elevated d-dimer and therefore he underwent a VQ scan which showed low probability of PE. -Acute on chronic hypoxia respiratory failure due to the pneumothorax: Treat with oxygen, down 4 L now, patient states he has oxygen at home -Acute right spontaneous pneumothorax most likely related to emphysema: Pulmonology is following, it appears they have spoke with Dr. Haque, CT surgeon, continue Pig tail Chest tube -?Acute exacerbation of COPD: Pulmonology is following, treat with nebs -End-stage renal disease on hemodialysis with hyperkalemia: Discussed with faucets assembler, needing hemodialysis, repeat levels in am -SIRS present on admission: continue to monitor, repeat wbc -Chronic elevated troponin and pro-bnp: monitor on telemetry overnight -DVT prophylaxis: scd ordered, will add sq heparin -HIV: continue home medications. -Acute encephalopathy, present on admission most likely due to above full code 12/09/16: new issues of Lung Mass, pt is indecisive if he wants to know. Monday, CT surgeon will be available per Dr. Parker spoke with Dr. Parker, possible remove chest tube today History Interval history: Patient was seen and examined. Follow-up on current diagnosis/shortness of breath improved. Overnight uneventful. Patient denies any chest pain, nausea/ vomiting or severe headaches. Imaging, nursing note, chart, labs and old chart reviewed. Discussed with patient but not regarding Lung mass per Dr. Teixeira. Hospitalist Physical - Physical exam Narrative exam: GEN: Thin frail man NAD, AWAKE, ALERT, ORIENTATED 3 HEENT: NCAT, EOMI, PERRL, OP Clear NECK: supple, no adenopathy, no thyromegaly, no JVD CVS/HEART: RRR, NORMAL S1S2, NO JVD, pulses present bilaterally CHEST/LUNGS: Diminished breath sounds bilaterally, Symmetrical chest expansion, reduced right sided air entry with right chest tube in place GI/Abdomen: soft, NTND, good bowel sounds, no guarding or rebound /Bladder: no suprapubic tenderness, no CVA or paraspinal tenderness EXT/Skin: no c/c/e, no obvious rash MSK: FROM x 4 Neuro: CN 2-12 grossly intact, no new focal deficits Psych: calm - Constitutional Vitals: Temp Pulse Resp BP Pulse Ox 98.4 F 76 22 103/63 97 12/09/16 04:01 12/09/16 04:01 12/09/16 05:42 12/09/16 04:01 12/09/16 04:01 General appearance: Present: no acute distress, well-nourished Results - Labs CBC & Chem 7: 12/07/16 03:00 12/07/16 20:40 Labs: Laboratory Last Values WBC 9.2 K/mm3 (4.5-11.0) 12/07/16 03:00 RBC 3.93 M/mm3 (3.65-5.03) 12/07/16 03:00 Hgb 12.4 gm/dl (11.8-15.2) 12/07/16 03:00 Hct 38.2 % (35.5-45.6) 12/07/16 03:00 MCV 97 fl (84-94) H 12/07/16 03:00 MCH 32 pg (28-32) 12/07/16 03:00 MCHC 33 % (32-34) 12/07/16 03:00 RDW 17.3 % (13.2-15.2) H 12/07/16 03:00 Plt Count 209 K/mm3 (140-440) 12/07/16 03:00 Lymph % (Auto) 14.1 % (13.4-35.0) 12/07/16 03:00 [place] % (Auto) 8.1 % (0.0-7.3) H 12/07/16 03:00 Eos % (Auto) 0.3 % (0.0-4.3) 12/07/16 03:00 Baso % (Auto) 0.4 % (0.0-1.8) 12/07/16 03:00 Lymph # 1.3 K/mm3 (1.2-5.4) 12/07/16 03:00 [place] # 0.7 K/mm3 (0.0-0.8) 12/07/16 03:00 Eos # 0.0 K/mm3 (0.0-0.4) 12/07/16 03:00 Baso # 0.0 K/mm3 (0.0-0.1) 12/07/16 03:00 Seg Neutrophils % 77.1 % (40.0-70.0) H 12/07/16 03:00 Seg Neutrophils # 7.1 K/mm3 (1.8-7.7) 12/07/16 03:00 PT 14.3 Sec. (12.2-14.9) 12/06/16 22:40 INR 1.06 (0.87-1.13) 12/06/16 22:40 APTT 33.5 Sec. (24.2-36.6) 12/06/16 22:40 D-Dimer 409.22 ng/mlDDU (0-234) H 12/06/16 22:40 Sodium 143 mmol/L (137-145) 12/07/16 20:40 Potassium 4.3 mmol/L (3.6-5.0) D 12/07/16 20:40 Chloride 92.1 mmol/L (98-107) L 12/07/16 20:40 Carbon Dioxide 28 mmol/L (22-30) 12/07/16 20:40 Anion Gap 27 mmol/L 12/07/16 20:40 BUN 55 mg/dL (9-20) H 12/07/16 20:40 Creatinine 10.5 mg/dL (0.8-1.5) H 12/07/16 20:40 Estimated GFR 6 ml/min 12/07/16 20:40 BUN/Creatinine Ratio 5 % 12/07/16 20:40 Glucose 128 mg/dL (75-100) H 12/07/16 20:40 POC Glucose 80 (70-105) 12/09/16 07:28 Calcium 9.6 mg/dL (8.4-10.2) 12/07/16 20:40 Magnesium 2.20 mg/dL (1.7-2.3) 12/06/16 22:40 Total Bilirubin 0.30 mg/dL (0.1-1.2) 12/06/16 22:40 AST 19 units/L (5-40) 12/06/16 22:40 ALT 11 units/L (7-56) 12/06/16 22:40 Alkaline Phosphatase 95 units/L (35-129) 12/06/16 22:40 Total Creatine Kinase 154 units/L (55-170) 12/07/16 08:30 CK-MB (CK-2) 5.0 ng/mL (0.0-4.0) H 12/07/16 08:30 CK-MB (CK-2) Rel Index 3.2 (0-4) 12/07/16 08:30 Troponin T 0.098 ng/mL (0.00-0.029) H 12/07/16 08:30 NT-Pro-B Natriuret Pep 3773 pg/mL (0-900) H 12/06/16 22:40 Total Protein 7.7 g/dL (6.3-8.2) 12/06/16 22:40 Albumin 4.5 g/dL (3.9-5) 12/06/16 22:40 Albumin/Globulin Ratio 1.4 % 12/06/16 22:40
--- NOTE | 2016-12-09 12:23 | XRay Report ---
Single view chest: Compared to 12/08/16. History: Pneumothorax chest tube 4. Findings Cardiomegaly. Trachea is midline. Basilar densities bilaterally. No evidence of pneumothorax. Impression: No evidence of pneumothorax.
--- NOTE | 2016-12-09 14:48 | Progress Note ---
Assessment and Plan IMpression: * esrd * emphysema * HTN * anemia in esrd Plan: * continue hd as schedule, tthsat * lung plans per pulm * uf as tolerated with hd * strict i/os * daily lytes * renal diet * epogen with HD Subjective Date of service: 12/09/16 Principal diagnosis: Spontaneous Pneumothorax; Lung Mass (Left Upper Lobe) Interval history: resting well in bed today Objective - Exam Narrative Exam: HEENT: Oral mucosa moist no pharyngeal erythema Neck: Supple no JVD Chest: Clear to auscultation no crackles rales or wheezes Heart: Regular rate and rhythm S1-S2 heard no S3-S4 Abdomen: Soft nontender no renal bruit no CVA tenderness no suprapubic fullness Extremity: Mild edema dry skin no peripheral cyanosis pulses palpable Neurological: Alert awake Musculoskeletal: No joint effusion noted - Vital Signs Vital signs: Vital Signs - 12hr 12/09/16 12/09/16 04:01 05:42 Temperature 98.4 F Pulse Rate 76 Respiratory 18 22 Rate Blood Pressure 103/63 O2 Sat by Pulse 97 Oximetry - Lab 12/07/16 03:00 12/07/16 20:40 Most recent lab results Calcium 9.6 mg/dL (8.4-10.2) 12/07/16 20:40 Magnesium 2.20 mg/dL (1.7-2.3) 12/06/16 22:40
[2016-12-09] MEDS: DUONEB *Not for PRN Use IH SCH ×2 (17:40→19:56)
[2016-12-09] MEDS: BROVANA NEBU IH SCH (19:56)
[2016-12-09] MEDS: PULMICORT IH SCH (19:56)
[2016-12-09] MEDS: NORCO 10/325 PO PRN (21:46)
[2016-12-10] MEDS: DUONEB *Not for PRN Use IH SCH ×4 (01:28→19:42)
[2016-12-10] MEDS: PULMICORT IH SCH ×2 (08:38→19:43)
[2016-12-10] MEDS: BROVANA NEBU IH SCH ×2 (08:38→22:56)
[2016-12-10] MEDS: HEPARIN SUB-Q SCH ×2 (09:41→22:01)
[2016-12-10] MEDS: PROTONIX PO SCH (09:42)
[2016-12-10] MEDS: VIRAMUNE PO SCH ×2 (09:42→22:01)
[2016-12-10] MEDS: NON-FORMULARY PO SCH (09:42)
[2016-12-10] MEDS: LANTHANUM CARBONATE 1000 MG PO SCH ×3 (09:43→17:15)
--- NOTE | 2016-12-10 10:56 | Progress Note ---
Assessment and Plan IMpression: * esrd * emphysema * HTN * anemia in esrd Plan: * continue hd as schedule, tthsat * lung plans per pulm * uf as tolerated with hd * strict i/os * daily lytes * renal diet * epogen with HD Subjective Date of service: 12/10/16 Principal diagnosis: Spontaneous Pneumothorax; Lung Mass (Left Upper Lobe) Interval history: resting well in bed today Objective - Exam Narrative Exam: HEENT: Oral mucosa moist no pharyngeal erythema Neck: Supple no JVD Chest: Clear to auscultation no crackles rales or wheezes Heart: Regular rate and rhythm S1-S2 heard no S3-S4 Abdomen: Soft nontender no renal bruit no CVA tenderness no suprapubic fullness Extremity: Mild edema dry skin no peripheral cyanosis pulses palpable Neurological: Alert awake Musculoskeletal: No joint effusion noted - Vital Signs Vital signs: Vital Signs - 12hr 12/10/16 12/10/16 12/10/16 01:29 02:37 04:49 Temperature 97.6 F 98.8 F Pulse Rate 85 85 87 Pulse Rate [ Anterior Bilateral Throughout] Pulse Rate [ Anterior Right Throughout] Pulse Rate [ Right Radial] Respiratory 20 20 Rate Respiratory Rate [Anterior Bilateral Throughout] Respiratory Rate [Anterior Right Throughout] Respiratory Rate [Right Chest] Blood Pressure 103/61 93/62 [Right] O2 Sat by Pulse 92 97 Oximetry 12/10/16 12/10/16 12/10/16 08:35 08:41 09:07 Temperature Pulse Rate 87 Pulse Rate [ 78 Anterior Bilateral Throughout] Pulse Rate [ 81 Anterior Right Throughout] Pulse Rate [ 87 Right Radial] Respiratory 20 Rate Respiratory 18 Rate [Anterior Bilateral Throughout] Respiratory 18 Rate [Anterior Right Throughout] Respiratory 20 Rate [Right Chest] Blood Pressure [Right] O2 Sat by Pulse 95 Oximetry 12/10/16 09:09 Temperature Pulse Rate Pulse Rate [ 77 Anterior Bilateral Throughout] Pulse Rate [ Anterior Right Throughout] Pulse Rate [ Right Radial] Respiratory Rate Respiratory 18 Rate [Anterior Bilateral Throughout] Respiratory Rate [Anterior Right Throughout] Respiratory Rate [Right Chest] Blood Pressure [Right] O2 Sat by Pulse Oximetry - Lab 12/07/16 03:00 12/07/16 20:40 Most recent lab results Calcium 9.6 mg/dL (8.4-10.2) 12/07/16 20:40 Magnesium 2.20 mg/dL (1.7-2.3) 12/06/16 22:40
--- NOTE | 2016-12-10 11:54 | Progress Note ---
Assessment and Plan Assessment and plan: Patient is 81-year-old man with a history of chronic hypoxic respiratory failure on home O2 most likely due to COPD, O2 HIV, end-stage renal disease on hemodialysis Monday without Monday, hypertension, GERD, and Dementia who presented to the emergency department at [facility] with shortness of breath and cough. Chest x-ray reported as large right pneumothorax , advanced emphysema, patient elevated d-dimer and therefore he underwent a VQ scan which showed low probability of PE. -Acute on chronic hypoxia respiratory failure due to the pneumothorax: Treat with oxygen, down 4 L now, patient states he has oxygen at home -Acute right spontaneous pneumothorax most likely related to emphysema: Pulmonology is following, it appears they have spoke with Dr. Haque, CT surgeon, continue Pig tail Chest tube -?Acute exacerbation of COPD: Pulmonology is following, treat with nebs -End-stage renal disease on hemodialysis with hyperkalemia: Discussed with telecommunications engineer, needing hemodialysis, repeat levels in am -SIRS present on admission: continue to monitor, repeat wbc -Chronic elevated troponin and pro-bnp: monitor on telemetry overnight -DVT prophylaxis: scd ordered, will add sq heparin -HIV: continue home medications. -Acute encephalopathy, present on admission most likely due to above full code 12/09/16: new issues of Lung Mass, pt is indecisive if he wants to know. Monday, CT surgeon will be available per Dr. Parker spoke with Dr. Parker, possible remove chest tube today 12/10/16: cxr removed yesterday, pt doing better, continue O2, CT surgeon evaluation for VATS tomorrow. History Interval history: Patient was seen and examined. Follow-up on current diagnosis/shortness of breath improved. Overnight uneventful. Patient denies any chest pain, nausea/ vomiting or severe headaches. Imaging, nursing note, chart, labs and old chart reviewed. Discussed with patient but not regarding Lung mass per Dr. Teixeira. Hospitalist Physical - Physical exam Narrative exam: GEN: Thin frail man NAD, AWAKE, ALERT, ORIENTATED 3 HEENT: NCAT, EOMI, PERRL, OP Clear NECK: supple, no adenopathy, no thyromegaly, no JVD CVS/HEART: RRR, NORMAL S1S2, NO JVD, pulses present bilaterally CHEST/LUNGS: Diminished breath sounds bilaterally, Symmetrical chest expansion, improved bilateral air entry with right chest tube removed GI/Abdomen: soft, NTND, good bowel sounds, no guarding or rebound /Bladder: no suprapubic tenderness, no CVA or paraspinal tenderness EXT/Skin: no c/c/e, no obvious rash MSK: FROM x 4 Neuro: CN 2-12 grossly intact, no new focal deficits Psych: calm - Constitutional Vitals: Temp Pulse Resp BP Pulse Ox 98.8 F 77 18 93/62 95 12/10/16 04:49 12/10/16 09:09 12/10/16 09:09 12/10/16 04:49 12/10/16 09:07 General appearance: Present: no acute distress, well-nourished Results - Labs CBC & Chem 7: 12/07/16 03:00 12/07/16 20:40 Labs: Laboratory Last Values WBC 9.2 K/mm3 (4.5-11.0) 12/07/16 03:00 RBC 3.93 M/mm3 (3.65-5.03) 12/07/16 03:00 Hgb 12.4 gm/dl (11.8-15.2) 12/07/16 03:00 Hct 38.2 % (35.5-45.6) 12/07/16 03:00 MCV 97 fl (84-94) H 12/07/16 03:00 MCH 32 pg (28-32) 12/07/16 03:00 MCHC 33 % (32-34) 12/07/16 03:00 RDW 17.3 % (13.2-15.2) H 12/07/16 03:00 Plt Count 209 K/mm3 (140-440) 12/07/16 03:00 Lymph % (Auto) 14.1 % (13.4-35.0) 12/07/16 03:00 [place] % (Auto) 8.1 % (0.0-7.3) H 12/07/16 03:00 Eos % (Auto) 0.3 % (0.0-4.3) 12/07/16 03:00 Baso % (Auto) 0.4 % (0.0-1.8) 12/07/16 03:00 Lymph # 1.3 K/mm3 (1.2-5.4) 12/07/16 03:00 [place] # 0.7 K/mm3 (0.0-0.8) 12/07/16 03:00 Eos # 0.0 K/mm3 (0.0-0.4) 12/07/16 03:00 Baso # 0.0 K/mm3 (0.0-0.1) 12/07/16 03:00 Seg Neutrophils % 77.1 % (40.0-70.0) H 12/07/16 03:00 Seg Neutrophils # 7.1 K/mm3 (1.8-7.7) 12/07/16 03:00 PT 14.3 Sec. (12.2-14.9) 12/06/16 22:40 INR 1.06 (0.87-1.13) 12/06/16 22:40 APTT 33.5 Sec. (24.2-36.6) 12/06/16 22:40 D-Dimer 409.22 ng/mlDDU (0-234) H 12/06/16 22:40 Sodium 143 mmol/L (137-145) 12/07/16 20:40 Potassium 4.3 mmol/L (3.6-5.0) D 12/07/16 20:40 Chloride 92.1 mmol/L (98-107) L 12/07/16 20:40 Carbon Dioxide 28 mmol/L (22-30) 12/07/16 20:40 Anion Gap 27 mmol/L 12/07/16 20:40 BUN 55 mg/dL (9-20) H 12/07/16 20:40 Creatinine 10.5 mg/dL (0.8-1.5) H 12/07/16 20:40 Estimated GFR 6 ml/min 12/07/16 20:40 BUN/Creatinine Ratio 5 % 12/07/16 20:40 Glucose 128 mg/dL (75-100) H 12/07/16 20:40 POC Glucose 105 (70-105) 12/10/16 07:47 Calcium 9.6 mg/dL (8.4-10.2) 12/07/16 20:40 Magnesium 2.20 mg/dL (1.7-2.3) 12/06/16 22:40 Total Bilirubin 0.30 mg/dL (0.1-1.2) 12/06/16 22:40 AST 19 units/L (5-40) 12/06/16 22:40 ALT 11 units/L (7-56) 12/06/16 22:40 Alkaline Phosphatase 95 units/L (35-129) 12/06/16 22:40 Total Creatine Kinase 154 units/L (55-170) 12/07/16 08:30 CK-MB (CK-2) 5.0 ng/mL (0.0-4.0) H 12/07/16 08:30 CK-MB (CK-2) Rel Index 3.2 (0-4) 12/07/16 08:30 Troponin T 0.098 ng/mL (0.00-0.029) H 12/07/16 08:30 NT-Pro-B Natriuret Pep 3773 pg/mL (0-900) H 12/06/16 22:40 Total Protein 7.7 g/dL (6.3-8.2) 12/06/16 22:40 Albumin 4.5 g/dL (3.9-5) 12/06/16 22:40 Albumin/Globulin Ratio 1.4 % 12/06/16 22:40
[2016-12-10] MEDS: MORPHINE IV PRN (13:17)
[2016-12-10] MEDS ORDERED: NACL 0.9 (PRIMING MACHINE ONLY DIALYSIS) MC ONE (13:22)
--- NOTE | 2016-12-10 16:15 | Progress Note ---
Assessment and Plan Acute Hypoxemic Respiratory Failure Spontaneous pneumothorax (recurrent) MARIS Lung Mass (new since August 13 2015 CXR) HIV +ve Severe COPD with acute exacerbation Dementia (I discussed lung mass with patient and his son at his request; he believes his Dad will not want further intervention on the lung mass even if it were a cancer however patient intermittently says "i wanna know what it is, yes") - chest tube removed - repeat CXR without PTX - continue supplemental oxygen - prn analgesia re: pleuritic chest pain - I suggest surgical and oncology consultation and evaluation so expert opinion can be shared with family (as this may well be a lung cancer) to help make an informed decision - continue bronchodilators and pulmonary toilet for severe COPD - PT/OT as tolerated ...will re-evaluate in am & prn Subjective Date of service: 12/10/16 Principal diagnosis: Spontaneous Pneumothorax; Lung Mass (Left Upper Lobe) Interval history: Patient is seen today for: Spontaneous Pneumothorax; Lung Mass (Left Upper Lobe) Seen and examined at bedside; 24hour events reviewed; nursing and respiratory care staff consulted; no adverse overnight events reported to me; doing better; no ,more pleuritic chest pain; no N/V/F/C; still unsure of what he wants to do regarding lung mass and dementia does not mean lack of capacity to make decision necessarily Objective Vital Signs - 12hr 12/10/16 12/10/16 12/10/16 04:49 08:35 08:41 Temperature 98.8 F Pulse Rate 87 87 Pulse Rate [ 78 Anterior Bilateral Throughout] Pulse Rate [ 81 Anterior Right Throughout] Pulse Rate [ 87 Right Radial] Respiratory 20 20 Rate Respiratory 18 Rate [Anterior Bilateral Throughout] Respiratory 18 Rate [Anterior Right Throughout] Respiratory 20 Rate [Right Chest] Blood Pressure Blood Pressure 93/62 [Right] O2 Sat by Pulse 97 Oximetry 12/10/16 12/10/16 12/10/16 09:07 09:09 11:50 Temperature 98.8 F Pulse Rate 80 Pulse Rate [ 77 Anterior Bilateral Throughout] Pulse Rate [ Anterior Right Throughout] Pulse Rate [ Right Radial] Respiratory 18 Rate Respiratory 18 Rate [Anterior Bilateral Throughout] Respiratory Rate [Anterior Right Throughout] Respiratory Rate [Right Chest] Blood Pressure 108/71 Blood Pressure [Right] O2 Sat by Pulse 95 Oximetry 12/10/16 12:00 Temperature Pulse Rate 82 Pulse Rate [ Anterior Bilateral Throughout] Pulse Rate [ Anterior Right Throughout] Pulse Rate [ Right Radial] Respiratory Rate Respiratory Rate [Anterior Bilateral Throughout] Respiratory Rate [Anterior Right Throughout] Respiratory Rate [Right Chest] Blood Pressure 97/66 Blood Pressure [Right] O2 Sat by Pulse Oximetry Constitutional: alert, appears uncomfortable Eyes: non-icteric ENT: oropharynx moist, other (no aphthous ulcers) Neck: supple, no lymphadenopathy Effort: mildly labored Ascultation: Bilateral: diminished breath sounds (upper zone predominant), rhonchi, other (breath sounds all lung zones) Percussion: Bilateral: not dull Cardiovascular: regular rate and rhythm, other (no R/M) Gastrointestinal: normoactive bowel sounds, soft, non-tender, non-distended, other (No HSM) Integumentary: other (dry; poor skin turgor; no rash) Extremities: no cyanosis, no edema, pulses normal, no ischemia or petechiae, other (bilateral pedal pulses palpable) Neurologic: normal mental status, non-focal exam, pupils equal and round, motor strength normal and, other (no fasciculations or tremors) Psychiatric: mood appropriate, affect normal CBC and BMP: 12/11/16 03:16 12/11/16 03:16 ABG, PT/INR, D-dimer: PT/INR, D-dimer PT 14.3 Sec. (12.2-14.9) 12/06/16 22:40 INR 1.06 (0.87-1.13) 12/06/16 22:40 D-Dimer 409.22 ng/mlDDU (0-234) H 12/06/16 22:40 Abnormal lab findings: Abnormal Labs 12/07/16 12/07/16 12/07/16 03:00 03:00 03:00 MCV 97 H RDW 17.3 H [place] % (Auto) 8.1 H Seg Neutrophils % 77.1 H Potassium 5.4 H Chloride 94.6 L BUN 44 H Creatinine 9.9 H Glucose 112 H POC Glucose CK-MB (CK-2) 5.1 H Troponin T 0.097 H 12/07/16 12/07/16 12/08/16 08:30 20:40 07:37 MCV RDW [place] % (Auto) Seg Neutrophils % Potassium Chloride 92.1 L BUN 55 H Creatinine 10.5 H Glucose 128 H POC Glucose 128 H CK-MB (CK-2) 5.0 H Troponin T 0.098 H 12/08/16 12/09/16 12/09/16 15:58 12:03 20:29 MCV RDW [place] % (Auto) Seg Neutrophils % Potassium Chloride BUN Creatinine Glucose POC Glucose 141 H 106 H 121 H CK-MB (CK-2) Troponin T Chest x-ray: image reviewed (no recurrence of PTX) Allied health notes reviewed: nursing
[2016-12-11] MEDS: DUONEB *Not for PRN Use IH SCH ×5 (02:25→19:34)
[2016-12-11 03:50] LABS: Basophils % (Auto) 0.6 % (0.0-1.8); Eosinophils % (Auto) 2.1 % (0.0-4.3); Hematocrit 31.8 % (35.5-45.6); Hemoglobin 10.6 gm/dl (11.8-15.2); Mean Corpuscular HGB Conc 33 % (32-34); Mean Corpuscular Hemoglobin 32 pg (28-32); Mean Corpuscular Volume 95 fl (84-94); Red Blood Count 3.35 M/mm3 (3.65-5.03); Red Cell Distribution Width 17.2 % (13.2-15.2); White Blood Count 5.8 K/mm3 (4.5-11.0)
[2016-12-11 03:58] LABS: Platelet Count 160 K/mm3 (140-440)
[2016-12-11 04:21] LABS: Calcium 9.1 mg/dL (8.4-10.2); Chloride 92.4 mmol/L (98-107)
[2016-12-11] MEDS: PULMICORT IH SCH ×2 (07:32→19:34)
[2016-12-11] MEDS: BROVANA NEBU IH SCH ×2 (07:32→19:34)
[2016-12-11] MEDS: HEPARIN SUB-Q SCH ×2 (09:12→22:03)
[2016-12-11] MEDS: NON-FORMULARY PO SCH (09:13)
[2016-12-11] MEDS: LANTHANUM CARBONATE 1000 MG PO SCH ×3 (09:13→16:19)
[2016-12-11] MEDS: VIRAMUNE PO SCH ×2 (09:14→21:59)
[2016-12-11] MEDS: PROTONIX PO SCH (09:14)
--- NOTE | 2016-12-11 11:45 | Progress Note ---
Assessment and Plan IMpression: * esrd * emphysema * HTN * anemia in esrd Plan: * continue hd as schedule, tthsat * lung plans per pulm * uf as tolerated with hd * strict i/os * daily lytes * renal diet * epogen with HD Subjective Date of service: 12/11/16 Principal diagnosis: Spontaneous Pneumothorax; Lung Mass (Left Upper Lobe) Interval history: resting well in bed today Objective - Exam Narrative Exam: HEENT: Oral mucosa moist no pharyngeal erythema Neck: Supple no JVD Chest: Clear to auscultation no crackles rales or wheezes Heart: Regular rate and rhythm S1-S2 heard no S3-S4 Abdomen: Soft nontender no renal bruit no CVA tenderness no suprapubic fullness Extremity: Mild edema dry skin no peripheral cyanosis pulses palpable Neurological: Alert awake Musculoskeletal: No joint effusion noted - Vital Signs Vital signs: Vital Signs - 12hr 12/10/16 12/11/16 12/11/16 23:53 00:45 02:55 Temperature 100.0 F H Pulse Rate 91 H 101 H Pulse Rate [ 91 H Anterior Bilateral Throughout] Pulse Rate [ Right Radial] Respiratory 18 Rate Respiratory 20 Rate [Anterior Bilateral Throughout] Respiratory Rate [Right Chest] Blood Pressure 91/66 [Right] O2 Sat by Pulse 96 Oximetry 12/11/16 12/11/16 12/11/16 03:11 07:00 07:32 Temperature 98.3 F Pulse Rate 80 Pulse Rate [ 93 H 83 Anterior Bilateral Throughout] Pulse Rate [ Right Radial] Respiratory 18 Rate Respiratory 18 20 Rate [Anterior Bilateral Throughout] Respiratory Rate [Right Chest] Blood Pressure 92/55 [Right] O2 Sat by Pulse 95 98 Oximetry 12/11/16 12/11/16 07:42 10:00 Temperature Pulse Rate 76 Pulse Rate [ 79 Anterior Bilateral Throughout] Pulse Rate [ 76 Right Radial] Respiratory 20 Rate Respiratory 20 Rate [Anterior Bilateral Throughout] Respiratory 20 Rate [Right Chest] Blood Pressure [Right] O2 Sat by Pulse 100 Oximetry - Lab 12/11/16 03:16 12/11/16 03:16 Most recent lab results Calcium 9.1 mg/dL (8.4-10.2) 12/11/16 03:16 Magnesium 2.20 mg/dL (1.7-2.3) 12/06/16 22:40
--- NOTE | 2016-12-11 15:28 | Progress Note ---
Assessment and Plan Assessment and plan: Patient is 81-year-old man with a history of chronic hypoxic respiratory failure on home O2 most likely due to COPD, O2 HIV, end-stage renal disease on hemodialysis Monday without Monday, hypertension, GERD, and Dementia who presented to the emergency department with shortness of breath and cough. Chest x-ray reported as large right pneumothorax, advanced emphysema, patient elevated d-dimer and therefore he underwent a VQ scan which showed low probability of PE. Acute on chronic hypoxia respiratory failure due to the pneumothorax - Currently stable on [place] Oxygen Acute right spontaneous pneumothorax most likely related to emphysema - Pulmonology is following - Pig tail removed Acute exacerbation of COPD: - Pulmonology is following, treat with nebs End-stage renal disease on hemodialysis with hyperkalemia - [employer] Set Up Operator consulted and continue with HD SIRS present on admission -continue to monitor Chronic elevated troponin and pro-bnp - monitor telemetry DVT prophylaxis: - On heparin HIV - continue home medications. Acute encephalopathy - resolved full code Disposition - Per Pulmonary History Interval history: Patient was seen and evaluated this morning, no new complaints, no shortness of breath. Hospitalist Physical - Physical exam Narrative exam: Not in cardiopulmonary distress. The patient appeared well nourished and normally developed. Vital signs as documented. Head exam is unremarkable. No scleral icterus . Neck is without jugular venous distension, thyromegaly, or carotid bruits. Lungs are clear to auscultation. Cardiac exam reveals regular rate and Rhythm. First and second heart sounds normal. No murmurs, rubs or gallops. Abdominal exam reveals normal bowel sounds, no masses, no organomegaly and no aortic enlargement. Extremities are nonedematous and both femoral and pedal pulses are normal. AUTO STRIPER: Alert and oriented 3. No focal weakness. - Constitutional Vitals: Temp Pulse Resp BP Pulse Ox 98.3 F 91 H 20 92/55 100 12/11/16 07:00 12/11/16 13:55 12/11/16 13:55 12/11/16 07:00 12/11/16 10:00 General appearance: Present: no acute distress, well-nourished Results - Labs CBC & Chem 7: 12/11/16 03:16 12/11/16 03:16 Labs: Laboratory Last Values WBC 5.8 K/mm3 (4.5-11.0) 12/11/16 03:16 RBC 3.35 M/mm3 (3.65-5.03) L 12/11/16 03:16 Hgb 10.6 gm/dl (11.8-15.2) L 12/11/16 03:16 Hct 31.8 % (35.5-45.6) L 12/11/16 03:16 MCV 95 fl (84-94) H 12/11/16 03:16 MCH 32 pg (28-32) 12/11/16 03:16 MCHC 33 % (32-34) 12/11/16 03:16 RDW 17.2 % (13.2-15.2) H 12/11/16 03:16 Plt Count 160 K/mm3 (140-440) 12/11/16 03:16 Lymph % (Auto) 24.4 % (13.4-35.0) 12/11/16 03:16 [place] % (Auto) 11.7 % (0.0-7.3) H 12/11/16 03:16 Eos % (Auto) 2.1 % (0.0-4.3) 12/11/16 03:16 Baso % (Auto) 0.6 % (0.0-1.8) 12/11/16 03:16 Lymph # 1.4 K/mm3 (1.2-5.4) 12/11/16 03:16 [place] # 0.7 K/mm3 (0.0-0.8) 12/11/16 03:16 Eos # 0.1 K/mm3 (0.0-0.4) 12/11/16 03:16 Baso # 0.0 K/mm3 (0.0-0.1) 12/11/16 03:16 Seg Neutrophils % 61.2 % (40.0-70.0) 12/11/16 03:16 Seg Neutrophils # 3.6 K/mm3 (1.8-7.7) 12/11/16 03:16 PT 14.3 Sec. (12.2-14.9) 12/06/16 22:40 INR 1.06 (0.87-1.13) 12/06/16 22:40 APTT 33.5 Sec. (24.2-36.6) 12/06/16 22:40 D-Dimer 409.22 ng/mlDDU (0-234) H 12/06/16 22:40 Sodium 138 mmol/L (137-145) 12/11/16 03:16 Potassium 5.0 mmol/L (3.6-5.0) 12/11/16 03:16 Chloride 92.4 mmol/L (98-107) L 12/11/16 03:16 Carbon Dioxide 29 mmol/L (22-30) 12/11/16 03:16 Anion Gap 22 mmol/L 12/11/16 03:16 BUN 24 mg/dL (9-20) H 12/11/16 03:16 Creatinine 5.7 mg/dL (0.8-1.5) H 12/11/16 03:16 Estimated GFR 12 ml/min 12/11/16 03:16 BUN/Creatinine Ratio 4 % 12/11/16 03:16 Glucose 98 mg/dL (75-100) 12/11/16 03:16 POC Glucose 121 (70-105) H 12/10/16 22:33 Calcium 9.1 mg/dL (8.4-10.2) 12/11/16 03:16 Magnesium 2.20 mg/dL (1.7-2.3) 12/06/16 22:40 Total Bilirubin 0.30 mg/dL (0.1-1.2) 12/06/16 22:40 AST 19 units/L (5-40) 12/06/16 22:40 ALT 11 units/L (7-56) 12/06/16 22:40 Alkaline Phosphatase 95 units/L (35-129) 12/06/16 22:40 Total Creatine Kinase 154 units/L (55-170) 12/07/16 08:30 CK-MB (CK-2) 5.0 ng/mL (0.0-4.0) H 12/07/16 08:30 CK-MB (CK-2) Rel Index 3.2 (0-4) 12/07/16 08:30 Troponin T 0.098 ng/mL (0.00-0.029) H 12/07/16 08:30 NT-Pro-B Natriuret Pep 3773 pg/mL (0-900) H 12/06/16 22:40 Total Protein 7.7 g/dL (6.3-8.2) 12/06/16 22:40 Albumin 4.5 g/dL (3.9-5) 12/06/16 22:40 Albumin/Globulin Ratio 1.4 % 12/06/16 22:40
--- NOTE | 2016-12-11 15:45 | Progress Note ---
Assessment and Plan Acute Hypoxemic Respiratory Failure Spontaneous pneumothorax (recurrent) MARIS Lung Mass (new since August 13 2015 CXR) HIV +ve Severe COPD with acute exacerbation Dementia (I discussed lung mass with patient and his son at his request; he believes his Dad will not want further intervention on the lung mass even if it were a cancer however patient intermittently says "i wanna know what it is, yes") - chest tube removed - repeat CXR without PTX - continue supplemental oxygen - prn analgesia re: pleuritic chest pain - await surgery and oncology input - continue bronchodilators and pulmonary toilet for severe COPD - PT/OT as tolerated ...will re-evaluate in am & prn Subjective Date of service: 12/11/16 Principal diagnosis: Spontaneous Pneumothorax; Lung Mass (Left Upper Lobe) Interval history: Patient is seen today for: Spontaneous Pneumothorax; Lung Mass (Left Upper Lobe) Seen and examined at bedside; 24hour events reviewed; nursing and respiratory care staff consulted; no adverse overnight events reported to me; resting in bed ; no chest pain; + cough no hemoptysis; awaiting surgical and oncology evaluation and input re: lung Mass Objective Vital Signs - 12hr 12/11/16 12/11/16 12/11/16 07:00 07:32 07:42 Temperature 98.3 F Pulse Rate 80 Pulse Rate [ 83 79 Anterior Bilateral Throughout] Pulse Rate [ Right Radial] Respiratory 18 Rate Respiratory 20 20 Rate [Anterior Bilateral Throughout] Respiratory Rate [Right Chest] Blood Pressure 92/55 [Right] O2 Sat by Pulse 95 98 Oximetry 12/11/16 12/11/16 12/11/16 10:00 13:45 13:55 Temperature Pulse Rate 76 Pulse Rate [ 83 91 H Anterior Bilateral Throughout] Pulse Rate [ 76 Right Radial] Respiratory 20 Rate Respiratory 20 20 Rate [Anterior Bilateral Throughout] Respiratory 20 Rate [Right Chest] Blood Pressure [Right] O2 Sat by Pulse 100 Oximetry Constitutional: no acute distress, alert Eyes: non-icteric ENT: oropharynx moist, other (no aphthous ulcers) Neck: supple, no lymphadenopathy Effort: mildly labored Ascultation: Bilateral: diminished breath sounds (upper zone predominant), rhonchi, other (breath sounds all lung zones) Percussion: Bilateral: not dull Cardiovascular: regular rate and rhythm, other (no R/M) Gastrointestinal: normoactive bowel sounds, soft, non-tender, non-distended, other (No HSM) Integumentary: other (dry; poor skin turgor; no rash) Extremities: no cyanosis, no edema, pulses normal, no ischemia or petechiae, other (bilateral pedal pulses palpable) Neurologic: normal mental status, non-focal exam, pupils equal and round, motor strength normal and, other (no fasciculations or tremors) Psychiatric: mood appropriate, affect normal CBC and BMP: 12/12/16 03:58 12/12/16 03:58 ABG, PT/INR, D-dimer: PT/INR, D-dimer PT 14.3 Sec. (12.2-14.9) 12/06/16 22:40 INR 1.06 (0.87-1.13) 12/06/16 22:40 D-Dimer 409.22 ng/mlDDU (0-234) H 12/06/16 22:40 Abnormal lab findings: Abnormal Labs 12/07/16 12/07/16 12/07/16 03:00 03:00 03:00 RBC Hgb Hct MCV 97 H RDW 17.3 H [place] % (Auto) 8.1 H Seg Neutrophils % 77.1 H Potassium 5.4 H Chloride 94.6 L BUN 44 H Creatinine 9.9 H Glucose 112 H POC Glucose CK-MB (CK-2) 5.1 H Troponin T 0.097 H 12/07/16 12/07/16 12/08/16 08:30 20:40 07:37 RBC Hgb Hct MCV RDW [place] % (Auto) Seg Neutrophils % Potassium Chloride 92.1 L BUN 55 H Creatinine 10.5 H Glucose 128 H POC Glucose 128 H CK-MB (CK-2) 5.0 H Troponin T 0.098 H 12/08/16 12/09/16 12/09/16 15:58 12:03 20:29 RBC Hgb Hct MCV RDW [place] % (Auto) Seg Neutrophils % Potassium Chloride BUN Creatinine Glucose POC Glucose 141 H 106 H 121 H CK-MB (CK-2) Troponin T 12/10/16 12/10/16 12/11/16 17:32 22:33 03:16 RBC 3.35 L Hgb 10.6 L Hct 31.8 L MCV 95 H RDW 17.2 H [place] % (Auto) 11.7 H Seg Neutrophils % Potassium Chloride BUN Creatinine Glucose POC Glucose 154 H 121 H CK-MB (CK-2) Troponin T 12/11/16 03:16 RBC Hgb Hct MCV RDW [place] % (Auto) Seg Neutrophils % Potassium Chloride 92.4 L BUN 24 H Creatinine 5.7 H Glucose POC Glucose CK-MB (CK-2) Troponin T Allied health notes reviewed: nursing
[2016-12-12] MEDS: DUONEB *Not for PRN Use IH SCH ×4 (01:09→19:05)
[2016-12-12 04:36] LABS: Basophils % (Auto) 0.7 % (0.0-1.8); Eosinophils % (Auto) 3.1 % (0.0-4.3); Hematocrit 31.8 % (35.5-45.6); Hemoglobin 10.5 gm/dl (11.8-15.2); Mean Corpuscular HGB Conc 33 % (32-34); Mean Corpuscular Hemoglobin 31 pg (28-32); Mean Corpuscular Volume 95 fl (84-94); Platelet Count 160 K/mm3 (140-440); Red Blood Count 3.36 M/mm3 (3.65-5.03); Red Cell Distribution Width 17.2 % (13.2-15.2); White Blood Count 5.4 K/mm3 (4.5-11.0)
[2016-12-12 04:39] LABS: Calcium 9.5 mg/dL (8.4-10.2); Chloride 90.6 mmol/L (98-107); Potassium 5.6 mmol/L (3.6-5.0)
[2016-12-12] MEDS: LANTHANUM CARBONATE 1000 MG PO SCH ×2 (08:23→17:03)
--- NOTE | 2016-12-12 08:25 | Consultation ---
History of Present Illness Consult date: 12/12/16 Reason for consult: other (I am asked to evaluate this patient for a right PTX) Past History Past Medical History: COPD, ESRD, HIV/AIDS, other (because of patient's dimentia -unable to obtain reliable hx) Medications and Allergies Allergies Allergy/AdvReac Type Severity Reaction Status Date / Time No Known Allergies Allergy Verified 08/05/16 15:41 Home Medications Medication Instructions Recorded Confirmed Last Taken Type Sodium Bicarbonate 650 mg PO BID 11/28/12 12/07/16 08/05/16 History Atazanavir Sulfate [Reyataz] 200 mg PO BID 12/12/12 12/07/16 08/05/16 History B Complex 11/Folic/C/Biot/Zinc 1 each PO DAILY 04/14/14 12/07/16 08/05/16 History [Dialyvite with Zinc Tablet] lamiVUDine [Epivir Hbv] 150 mg PO QDAY 04/14/14 12/07/16 08/05/16 History Temazepam [Restoril] 30 mg PO QHS 09/12/15 12/07/16 08/05/16 History Acetaminophen [Acetaminophen TAB] 325 mg PO PRN PRN 08/05/16 12/07/16 Unknown History Lanthanum Carbonate [Fosrenol] 1,000 mg PO AC 08/05/16 12/07/16 08/05/16 History Nevirapine [Viramune] 200 mg PO BID 08/05/16 12/07/16 08/05/16 History Nitroglycerin [Nitrostat] 0.4 mg PO PRN PRN MDD 3 doses 08/05/16 12/07/16 Unknown History Omeprazole Magnesium [PriLOSEC Otc] 20 mg PO QDAY 08/05/16 12/07/16 08/05/16 History cloNIDine [Catapres] 0.2 mg PO PRN PRN 08/05/16 12/07/16 Unknown History Active Meds: Active Medications Acetaminophen (Tylenol) 650 mg PO Q4H PRN PRN Reason: Pain MILD(1-3)/Fever >100.5/BELTRAN Last Admin: 12/07/16 04:52 Dose: 650 mg Acetaminophen/Hydrocodone Bitart ([place] 10/325) 1 each PO Q4H PRN PRN Reason: Pain, Moderate (4-6) Last Admin: 12/09/16 21:46 Dose: 1 each Albuterol (Proventil) 2.5 mg IH Q3HRT PRN PRN Reason: Shortness Of Breath Albuterol/Ipratropium (Duoneb *Not For Prn Use*) 1 ampul IH Q6HRT [facility] Last Admin: 12/12/16 01:09 Dose: Not Given Arformoterol Tartrate (Brovana Nebu) 15 mcg IH Q12HRT [facility] Last Admin: 12/11/16 19:34 Dose: 15 mcg Bisacodyl (Dulcolax) 10 mg [place] QDAY PRN PRN Reason: Constipation unrelieved by MOM Last Admin: 12/10/16 00:57 Dose: 10 mg Budesonide (Pulmicort) 0.5 mg IH Q12HRT [facility] Last Admin: 12/11/16 19:34 Dose: 0.5 mg Heparin Sodium (Porcine) (Heparin) 5,000 unit SUB-Q Q12HR [facility] Last Admin: 12/11/16 22:03 Dose: 5,000 unit Sodium Chloride (Nacl 0.9%) 100 mls @ 999 mls/hr IV TWAN PRN PRN Reason: Hypotension Miscellaneous Medication (Atazanavir Sulfate [Reyataz]) 200 mg PO BID [facility] Miscellaneous Medication (Lanthanum Carbonate [Fosrenol]) 1,000 mg PO TIDWM [facility] Last Admin: 12/11/16 16:19 Dose: Not Given Miscellaneous Medication (Non-Formulary) 1 each PO DAILY [facility] Last Admin: 12/11/16 09:13 Dose: 1 each Morphine Sulfate (Morphine) 1 mg IV Q4H PRN PRN Reason: Pain, Moderate (4-6) Last Admin: 12/10/16 13:17 Dose: 1 mg Nevirapine (Viramune) 200 mg PO BID [facility] Last Admin: 12/11/16 21:59 Dose: 200 mg Ondansetron HCl (Zofran) 4 mg IV Q8H PRN PRN Reason: N/V unrelieved by Reglan Last Admin: 12/07/16 08:03 Dose: 4 mg Pantoprazole Sodium (Protonix) 20 mg PO QDAY [facility] Last Admin: 12/11/16 09:14 Dose: 20 mg Review of Systems - Constitutional other (asymptomatic) Exam Vital Signs Temp Pulse Resp BP Pulse Ox 97.3 F L 111 H 24 105/55 70 L 12/06/16 21:26 12/06/16 21:26 12/06/16 21:26 12/06/16 21:26 12/06/16 21:26 - General physical appearance Positive: no distress - Eyes Positive: PERRL, normal occular movement - ENT Positive: normal pinna, normal nares, normal mucosa, no hearing loss, no congestion - Neck Positive: no masses, no bruits, trachea midline, no venous distension - Respiratory Positive: normal expansion, normal respiratory effort, clear to auscultation - Cardiovascular Rhythm: regular - Extremities Extremities: no ischemia, pulses symmetrical, No edema - Breasts Breasts: normal - Abdomen Abdomen: Present: soft, bowel sounds normal. Absent: tender, distended Hernia: none - Genitourinary Male Genitourinary: normal - Psychiatric Psychiatric: other (because of dimentia can not obtain reliable hx) Results - Labs 12/12/16 03:58 12/12/16 03:58 Abnormal lab results 12/11/16 12/12/16 12/12/16 Range/Units 16:42 01:02 03:58 RBC 3.36 L (3.65-5.03) M/mm3 Hgb 10.5 L (11.8-15.2) gm/dl Hct 31.8 L (35.5-45.6) % MCV 95 H (84-94) fl RDW 17.2 H (13.2-15.2) % [place] % (Auto) 12.4 H (0.0-7.3) % Sodium (137-145) mmol/L Potassium (3.6-5.0) mmol/L Chloride (98-107) mmol/L BUN (9-20) mg/dL Creatinine (0.8-1.5) mg/dL POC Glucose 113 H 140 H (70-105) 12/12/16 Range/Units 03:58 RBC (3.65-5.03) M/mm3 Hgb (11.8-15.2) gm/dl Hct (35.5-45.6) % MCV (84-94) fl RDW (13.2-15.2) % [place] % (Auto) (0.0-7.3) % Sodium 136 L (137-145) mmol/L Potassium 5.6 H (3.6-5.0) mmol/L Chloride 90.6 L (98-107) mmol/L BUN 40 H (9-20) mg/dL Creatinine 8.2 H (0.8-1.5) mg/dL POC Glucose (70-105) Diabetes panel 12/12/16 Range/Units 03:58 Sodium 136 L (137-145) mmol/L Potassium 5.6 H (3.6-5.0) mmol/L Chloride 90.6 L (98-107) mmol/L Carbon Dioxide 29 (22-30) mmol/L BUN 40 H (9-20) mg/dL Creatinine 8.2 H (0.8-1.5) mg/dL Glucose 82 (75-100) mg/dL Calcium 9.5 (8.4-10.2) mg/dL Calcium panel 12/12/16 Range/Units 03:58 Calcium 9.5 (8.4-10.2) mg/dL Pituitary panel 12/12/16 Range/Units 03:58 Sodium 136 L (137-145) mmol/L Potassium 5.6 H (3.6-5.0) mmol/L Chloride 90.6 L (98-107) mmol/L Carbon Dioxide 29 (22-30) mmol/L BUN 40 H (9-20) mg/dL Creatinine 8.2 H (0.8-1.5) mg/dL Glucose 82 (75-100) mg/dL Calcium 9.5 (8.4-10.2) mg/dL Adrenal panel 12/12/16 Range/Units 03:58 Sodium 136 L (137-145) mmol/L Potassium 5.6 H (3.6-5.0) mmol/L Chloride 90.6 L (98-107) mmol/L Carbon Dioxide 29 (22-30) mmol/L BUN 40 H (9-20) mg/dL Creatinine 8.2 H (0.8-1.5) mg/dL Glucose 82 (75-100) mg/dL Calcium 9.5 (8.4-10.2) mg/dL Assessment and Plan Complex case, right sided ptx secondary to ruptured bleb? now resolved, hx of previous ptx? /right side-patient can not recall. 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 I will be happy to follow up as outpatient.
[2016-12-12] MEDS: PULMICORT IH SCH ×2 (08:35→19:04)
[2016-12-12] MEDS: BROVANA NEBU IH SCH ×2 (08:35→19:04)
[2016-12-12] MEDS: NON-FORMULARY PO SCH (09:13)
[2016-12-12] MEDS: VIRAMUNE PO SCH (09:13)
[2016-12-12] MEDS: PROTONIX PO SCH (09:14)
[2016-12-12] MEDS: HEPARIN SUB-Q SCH (09:14)
--- NOTE | 2016-12-12 09:34 | Hem/Onc Consultation ---
History of Present Illness - Reason for Consult Consult date: 12/12/16 - History of Present Illness Full note dictated. I can follow-up as outpatient. May need a PET scan as outpatient. Overall poor candidate for treatment of lung cancer if diagnosed with it Past History Past Medical History: COPD, ESRD, HIV/AIDS, other (because of patient's dimentia -unable to obtain reliable hx) Medications and Allergies Allergies Allergy/AdvReac Type Severity Reaction Status Date / Time No Known Allergies Allergy Verified 08/05/16 15:41 Home Medications Medication Instructions Recorded Confirmed Last Taken Type Sodium Bicarbonate 650 mg PO BID 11/28/12 12/07/16 08/05/16 History Atazanavir Sulfate [Reyataz] 200 mg PO BID 12/12/12 12/07/16 08/05/16 History B Complex 11/Folic/C/Biot/Zinc 1 each PO DAILY 04/14/14 12/07/16 08/05/16 History [Dialyvite with Zinc Tablet] lamiVUDine [Epivir Hbv] 150 mg PO QDAY 04/14/14 12/07/16 08/05/16 History Temazepam [Restoril] 30 mg PO QHS 09/12/15 12/07/16 08/05/16 History Acetaminophen [Acetaminophen TAB] 325 mg PO PRN PRN 08/05/16 12/07/16 Unknown History Lanthanum Carbonate [Fosrenol] 1,000 mg PO AC 08/05/16 12/07/16 08/05/16 History Nevirapine [Viramune] 200 mg PO BID 08/05/16 12/07/16 08/05/16 History Nitroglycerin [Nitrostat] 0.4 mg PO PRN PRN MDD 3 doses 08/05/16 12/07/16 Unknown History Omeprazole Magnesium [PriLOSEC Otc] 20 mg PO QDAY 08/05/16 12/07/16 08/05/16 History cloNIDine [Catapres] 0.2 mg PO PRN PRN 08/05/16 12/07/16 Unknown History Active Meds: Active Medications Acetaminophen (Tylenol) 650 mg PO Q4H PRN PRN Reason: Pain MILD(1-3)/Fever >100.5/BELTRAN Last Admin: 12/07/16 04:52 Dose: 650 mg Acetaminophen/Hydrocodone Bitart ([place] 10/325) 1 each PO Q4H PRN PRN Reason: Pain, Moderate (4-6) Last Admin: 12/09/16 21:46 Dose: 1 each Albuterol (Proventil) 2.5 mg IH Q3HRT PRN PRN Reason: Shortness Of Breath Albuterol/Ipratropium (Duoneb *Not For Prn Use*) 1 ampul IH Q6HRT [facility] Last Admin: 12/12/16 08:35 Dose: Not Given Arformoterol Tartrate (Brovana Nebu) 15 mcg IH Q12HRT [facility] Last Admin: 12/12/16 08:35 Dose: 15 mcg Bisacodyl (Dulcolax) 10 mg [place] QDAY PRN PRN Reason: Constipation unrelieved by MOM Last Admin: 12/10/16 00:57 Dose: 10 mg Budesonide (Pulmicort) 0.5 mg IH Q12HRT [facility] Last Admin: 12/12/16 08:35 Dose: 0.5 mg Heparin Sodium (Porcine) (Heparin) 5,000 unit SUB-Q Q12HR [facility] Last Admin: 12/12/16 09:14 Dose: 5,000 unit Sodium Chloride (Nacl 0.9%) 100 mls @ 999 mls/hr IV TWAN PRN PRN Reason: Hypotension Miscellaneous Medication (Atazanavir Sulfate [Reyataz]) 200 mg PO BID [facility] Miscellaneous Medication (Lanthanum Carbonate [Fosrenol]) 1,000 mg PO TIDWM [facility] Last Admin: 12/12/16 08:23 Dose: 1,000 mg Miscellaneous Medication (Non-Formulary) 1 each PO DAILY [facility] Last Admin: 12/12/16 09:13 Dose: 1 each Morphine Sulfate (Morphine) 1 mg IV Q4H PRN PRN Reason: Pain, Moderate (4-6) Last Admin: 12/10/16 13:17 Dose: 1 mg Nevirapine (Viramune) 200 mg PO BID [facility] Last Admin: 12/12/16 09:13 Dose: 200 mg Ondansetron HCl (Zofran) 4 mg IV Q8H PRN PRN Reason: N/V unrelieved by Reglan Last Admin: 12/07/16 08:03 Dose: 4 mg Pantoprazole Sodium (Protonix) 20 mg PO QDAY [facility] Last Admin: 12/12/16 09:14 Dose: 20 mg Exam - Constitutional Vitals: Last Vital Signs Temp 97.9 F 12/12/16 06:30 Pulse 76 12/12/16 08:50 Resp 18 12/12/16 08:50 BP 108/69 12/12/16 06:30 Pulse Ox 94 12/12/16 08:37 Results - Labs lab Results: Laboratory Results - last 24 hr 12/11/16 12/11/16 12/11/16 07:49 12:38 16:42 WBC RBC Hgb Hct MCV MCH MCHC RDW Plt Count Lymph % (Auto) [place] % (Auto) Eos % (Auto) Baso % (Auto) Lymph # [place] # Eos # Baso # Seg Neutrophils % Seg Neutrophils # Sodium Potassium Chloride Carbon Dioxide Anion Gap BUN Creatinine Estimated GFR BUN/Creatinine Ratio Glucose POC Glucose 97 101 113 H Calcium 12/12/16 12/12/16 12/12/16 01:02 03:58 03:58 WBC 5.4 RBC 3.36 L Hgb 10.5 L Hct 31.8 L MCV 95 H MCH 31 MCHC 33 RDW 17.2 H Plt Count 160 Lymph % (Auto) 26.8 [place] % (Auto) 12.4 H Eos % (Auto) 3.1 Baso % (Auto) 0.7 Lymph # 1.4 [place] # 0.7 Eos # 0.2 Baso # 0.0 Seg Neutrophils % 57.0 Seg Neutrophils # 3.1 Sodium 136 L Potassium 5.6 H Chloride 90.6 L Carbon Dioxide 29 Anion Gap 22 BUN 40 H Creatinine 8.2 H Estimated GFR 8 BUN/Creatinine Ratio 5 Glucose 82 POC Glucose 140 H Calcium 9.5 12/12/16 07:31 WBC RBC Hgb Hct MCV MCH MCHC RDW Plt Count Lymph % (Auto) [place] % (Auto) Eos % (Auto) Baso % (Auto) Lymph # [place] # Eos # Baso # Seg Neutrophils % Seg Neutrophils # Sodium Potassium Chloride Carbon Dioxide Anion Gap BUN Creatinine Estimated GFR BUN/Creatinine Ratio Glucose POC Glucose 79 Calcium
--- NOTE | 2016-12-12 10:19 | Progress Note ---
Assessment and Plan IMpression: * esrd * emphysema * HTN * anemia in esrd Plan: * continue hd as schedule, tthsat * lung plans per pulm * uf as tolerated with hd * strict i/os * daily lytes * renal diet * epogen with HD * ok for dc from renal standpoint Subjective Date of service: 12/12/16 Principal diagnosis: Spontaneous Pneumothorax; Lung Mass (Left Upper Lobe) Interval history: resting well in bed today Objective - Exam Narrative Exam: HEENT: Oral mucosa moist no pharyngeal erythema Neck: Supple no JVD Chest: Clear to auscultation no crackles rales or wheezes Heart: Regular rate and rhythm S1-S2 heard no S3-S4 Abdomen: Soft nontender no renal bruit no CVA tenderness no suprapubic fullness Extremity: Mild edema dry skin no peripheral cyanosis pulses palpable Neurological: Alert awake Musculoskeletal: No joint effusion noted - Vital Signs Vital signs: Vital Signs - 12hr 12/12/16 12/12/16 12/12/16 01:02 06:30 08:35 Temperature 98.2 F 97.9 F Pulse Rate 96 H 89 Pulse Rate [ 73 Anterior Bilateral Throughout] Respiratory 20 20 Rate Respiratory 18 Rate [Anterior Bilateral Throughout] Blood Pressure 89/50 108/69 [Right] O2 Sat by Pulse 98 96 Oximetry 12/12/16 12/12/16 08:37 08:50 Temperature Pulse Rate Pulse Rate [ 76 Anterior Bilateral Throughout] Respiratory Rate Respiratory 18 Rate [Anterior Bilateral Throughout] Blood Pressure [Right] O2 Sat by Pulse 94 Oximetry - Lab 12/12/16 03:58 12/12/16 03:58 Most recent lab results Calcium 9.5 mg/dL (8.4-10.2) 12/12/16 03:58 Magnesium 2.20 mg/dL (1.7-2.3) 12/06/16 22:40
--- NOTE | 2016-12-12 14:13 | Discharge Summary ---
Providers - Providers Date of Admission: 12/06/16 23:39 Date of discharge: 12/12/16 Attending physician: SIERRA HUERTA MD 12/07/16 00:25 Consult to Physician [CONS] Routine Consulting Provider: MARY MARSHALL Reason For Exam: hd Place consult to:: answering service Notified:: yes Phone number called:: [phone] Was contact made?: Yes If yes, spoke with:: Keshia Time called:: 08:27 12/07/16 12:13 Consult to Physician [CONS] Routine Consulting Provider: TIMA PADILLA Reason For Exam: recurrent spontaneous pneumothorax Place consult to:: Shabnam Notified:: Dr Was contact made?: Yes 12/11/16 15:41 Consult to Physician [CONS] Routine Consulting Provider: INOCENTE GLOVER Reason For Exam: lung mass Place consult to:: Oncology Notified:: service Phone number called:: [phone] Was contact made?: Yes If yes, spoke with:: Jennifer Time called:: 15:48 Primary care physician: [employer] INSPECTOR Hospitalization Condition: Good Disposition: DC-01 TO HOME OR SELFCARE Time spent for discharge: 31 minutes - Discharge Diagnoses (1) Pneumothorax Status: Acute Qualifiers: Pneumothorax type: other pneumothorax Encounter type: E Qualified Code(s) : J93.83 - Other pneumothorax (2) COPD with exacerbation Status: Acute (3) Exertional dyspnea Status: Acute (4) Dementia Status: Chronic Qualifiers: Dementia type: unspecified type Alzheimer's disease onset: A Dementia behavioral disturbance: without behavioral disturbance Qualified Code(s): F03.90 - Unspecified dementia without behavioral disturbance (5) End-stage renal disease on hemodialysis Status: Chronic (6) HIV (human immunodeficiency virus infection) Status: Chronic Comment: stable (7) Hypertension Status: Chronic Qualifiers: Hypertension type: H Core Measure Documentation - Palliative Care Palliative Care/ Comfort Measures: Not Applicable - Core Measures Any of the following diagnoses?: none Exam - Physical Exam Narrative exam: Not in cardiopulmonary distress. The patient appeared well nourished and normally developed. Vital signs as documented. Head exam is unremarkable. No scleral icterus . Neck is without jugular venous distension, thyromegaly, or carotid bruits. Lungs are clear to auscultation. Cardiac exam reveals regular rate and Rhythm. First and second heart sounds normal. No murmurs, rubs or gallops. Abdominal exam reveals normal bowel sounds, no masses, no organomegaly and no aortic enlargement. Extremities are nonedematous and both femoral and pedal pulses are normal. PIN MAKER: Alert and oriented 3. No focal weakness. - Constitutional Vitals: Temp Pulse Resp BP Pulse Ox 97.9 F 78 16 106/69 94 12/12/16 12:33 12/12/16 12:40 12/12/16 12:33 12/12/16 12:33 12/12/16 12:33 Plan Activity: no restrictions Weight Bearing Status: Full Weight Bearing Diet: low cholesterol, low salt, renal Follow up with: PRIMARY CARE, [Primary Care Provider] - 3-5 Days TIMA PADILLA MD [Staff Physician] - 14 Days INOCENTE GLOVER MD [Staff Physician] - 10 Days
--- NOTE | 2016-12-12 19:35 | Progress Note ---
Assessment and Plan Patient resting on 3 litres O2 and O2 saturation 99%.No acute respiratory distress at this time. - Patient Problems (1) COPD (chronic obstructive pulmonary disease) Current Visit: No Status: Chronic Qualifiers: COPD type: unspecified COPD Chronic bronchitis type: C Emphysema type: E Qualified Code(s): J44.9 - Chronic obstructive pulmonary disease, unspecified Plan to address problem: O2 3 litres via nasal canula. Brovanna/ Budesonide aerosol treatments q 12 hours. Albuterol/atrovent aerosol treatments q 6 hours prn for shortness of breath. Continue S/C Heparin Continue Protonix. (2) Dementia Current Visit: No Status: Chronic Qualifiers: Dementia type: unspecified type Alzheimer's disease onset: A Dementia behavioral disturbance: without behavioral disturbance Qualified Code(s): F03.90 - Unspecified dementia without behavioral disturbance Plan to address problem: Management as per primary care. (3) End-stage renal disease on hemodialysis Current Visit: No Status: Chronic Plan to address problem: Management as per nephrology. (4) Chest pain Current Visit: No Status: Acute Qualifiers: Chest pain type: C Ischemic chest pain type: I Plan to address problem: Recommend to consult Cardiology. (5) GERD without esophagitis Current Visit: No Status: Acute Plan to address problem: Patient is on protonix. Subjective Date of service: 12/12/16 Principal diagnosis: Spontaneous Pneumothorax; Lung Mass (Left Upper Lobe) Interval history: Patient resting on 3 litres O2 and O2 saturation 99%.No acute respiratory distress at this time. Objective Vital Signs - 12hr 12/12/16 12/12/16 12/12/16 08:35 08:37 08:50 Temperature Pulse Rate Pulse Rate [ 73 76 Anterior Bilateral Throughout] Respiratory Rate Respiratory 18 18 Rate [Anterior Bilateral Throughout] Blood Pressure Blood Pressure [Right] O2 Sat by Pulse 94 Oximetry 12/12/16 12/12/16 12/12/16 12:27 12:33 12:40 Temperature 97.9 F 97.9 F Pulse Rate 80 81 78 Pulse Rate [ Anterior Bilateral Throughout] Respiratory 16 16 Rate Respiratory Rate [Anterior Bilateral Throughout] Blood Pressure 106/69 Blood Pressure 106/69 [Right] O2 Sat by Pulse 94 94 Oximetry 12/12/16 12/12/16 12/12/16 15:35 15:51 16:36 Temperature 99.3 F Pulse Rate 88 Pulse Rate [ 92 H 94 H Anterior Bilateral Throughout] Respiratory 16 Rate Respiratory 18 18 Rate [Anterior Bilateral Throughout] Blood Pressure Blood Pressure 90/57 [Right] O2 Sat by Pulse 94 97 Oximetry 12/12/16 12/12/16 12/12/16 17:21 19:06 19:09 Temperature Pulse Rate Pulse Rate [ 90 Anterior Bilateral Throughout] Respiratory 20 Rate Respiratory 20 Rate [Anterior Bilateral Throughout] Blood Pressure Blood Pressure [Right] O2 Sat by Pulse 99 Oximetry 12/12/16 19:17 Temperature 98.3 F Pulse Rate 84 Pulse Rate [ Anterior Bilateral Throughout] Respiratory 22 Rate Respiratory Rate [Anterior Bilateral Throughout] Blood Pressure Blood Pressure 96/58 [Right] O2 Sat by Pulse Oximetry Constitutional: no acute distress, alert Eyes: non-icteric ENT: oropharynx moist, other (no aphthous ulcers) Neck: supple, no lymphadenopathy Effort: mildly labored Ascultation: Bilateral: diminished breath sounds (upper zone predominant), rhonchi, other (breath sounds all lung zones) Percussion: Bilateral: not dull Cardiovascular: regular rate and rhythm, other (no R/M) Gastrointestinal: normoactive bowel sounds, soft, non-tender, non-distended, other (No HSM) Integumentary: other (dry; poor skin turgor; no rash) Extremities: no cyanosis, no edema, pulses normal, no ischemia or petechiae, other (bilateral pedal pulses palpable) Neurologic: normal mental status, non-focal exam, pupils equal and round, motor strength normal and, other (no fasciculations or tremors) Psychiatric: mood appropriate, affect normal CBC and BMP: 12/12/16 03:58 12/12/16 03:58 ABG, PT/INR, D-dimer: PT/INR, D-dimer PT 14.3 Sec. (12.2-14.9) 12/06/16 22:40 INR 1.06 (0.87-1.13) 12/06/16 22:40 D-Dimer 409.22 ng/mlDDU (0-234) H 12/06/16 22:40 Abnormal lab findings: Abnormal Labs 12/07/16 12/07/16 12/07/16 03:00 03:00 03:00 RBC Hgb Hct MCV 97 H RDW 17.3 H Armstrong % (Auto) 8.1 H Seg Neutrophils % 77.1 H Sodium Potassium 5.4 H Chloride 94.6 L BUN 44 H Creatinine 9.9 H Glucose 112 H POC Glucose CK-MB (CK-2) 5.1 H Troponin T 0.097 H 12/07/16 12/07/16 12/08/16 08:30 20:40 07:37 RBC Hgb Hct MCV RDW Armstrong % (Auto) Seg Neutrophils % Sodium Potassium Chloride 92.1 L BUN 55 H Creatinine 10.5 H Glucose 128 H POC Glucose 128 H CK-MB (CK-2) 5.0 H Troponin T 0.098 H 12/08/16 12/09/16 12/09/16 15:58 12:03 20:29 RBC Hgb Hct MCV RDW Armstrong % (Auto) Seg Neutrophils % Sodium Potassium Chloride BUN Creatinine Glucose POC Glucose 141 H 106 H 121 H CK-MB (CK-2) Troponin T 12/10/16 12/10/16 12/11/16 17:32 22:33 03:16 RBC 3.35 L Hgb 10.6 L Hct 31.8 L MCV 95 H RDW 17.2 H Armstrong % (Auto) 11.7 H Seg Neutrophils % Sodium Potassium Chloride BUN Creatinine Glucose POC Glucose 154 H 121 H CK-MB (CK-2) Troponin T 12/11/16 12/11/16 12/12/16 03:16 16:42 01:02 RBC Hgb Hct MCV RDW Armstrong % (Auto) Seg Neutrophils % Sodium Potassium Chloride 92.4 L BUN 24 H Creatinine 5.7 H Glucose POC Glucose 113 H 140 H CK-MB (CK-2) Troponin T 12/12/16 12/12/16 03:58 03:58 RBC 3.36 L Hgb 10.5 L Hct 31.8 L MCV 95 H RDW 17.2 H Armstrong % (Auto) 12.4 H Seg Neutrophils % Sodium 136 L Potassium 5.6 H Chloride 90.6 L BUN 40 H Creatinine 8.2 H Glucose POC Glucose CK-MB (CK-2) Troponin T Chest x-ray: report reviewed (No Pneumothorax.), image reviewed Allied health notes reviewed: nursing
--- NOTE | 2016-12-12 23:32 | Consultation ---
REFERRING PHYSICIAN: Sim Thayer MD REASON FOR CONSULTATION: Lung mass. HISTORY OF PRESENT ILLNESS: The patient is an 81-year-old male with multiple medical problems. He is on hemodialysis. He also had HIV. He has a history of tobacco abuse in the past and also has history of COPD. He presented to the hospital with shortness of breath for about 3 days with nonproductive cough. During his workup, he was found to have pneumothorax requiring chest tube placement. CT of the chest to also showed pleural nodule in the left upper lobe. It was 1.7 cm. The previous study from 2014 did not show this mass. The patient did have to have chest tube placed, which was taken out this weekend. Because of the pleural based mass, Oncology consult was called. The patient denies any weight loss. He is feeling a lot better. PAST MEDICAL HISTORY: As mentioned in history of present illness. He also has history of dementia. FAMILY HISTORY: Unremarkable. PHYSICAL EXAMINATION: GENERAL: The patient is awake and oriented. HEENT: Unremarkable for any adenopathy in the cervical or axillary area. CHEST: Clear. There is a recent chest tube placement site, which is bandaged. LUNGS: Decreased breath sounds at the bases. CARDIOVASCULAR: Regular. ABDOMEN: Soft, slightly protuberant. EXTREMITIES: No clubbing, cyanosis, or edema. LABORATORY DATA: The patient's hemoglobin is 10.5, white count 5.4, platelet 160,000. Creatinine 8.2 (the patient is on hemodialysis). ASSESSMENT: 1. Chronic obstructive pulmonary disease/end-stage renal disease, on hemodialysis/dementia/human immunodeficiency virus in this patient now with evidence of a pleural based 1.6 cm mass noted in the left upper lobe. RECOMMENDATION AND PLAN: At this time, I have reviewed . One option is to watch this and if it grows or if it gets symptomatic, we could do biopsy. The other option is to do a biopsy now. wants to see the patient outpatient. I agree with the fact that the patient has a poor prognosis for treatment of lung cancer if it is diagnosed, especially with his comorbid issues including hemodialysis, HIV and dementia along with his age. I will follow him as outpatient if he is to be discharged. JOB# [id number] EFFIE/LELIA
[2016-12-13] MEDS: HEPARIN SUB-Q SCH ×2 (00:55→09:00)
[2016-12-13] MEDS: VIRAMUNE PO SCH ×2 (00:55→09:00)
[2016-12-13] MEDS: DUONEB *Not for PRN Use IH SCH ×2 (02:12→08:43)
[2016-12-13 08:10] VITALS: BP 97/61
[2016-12-13] MEDS: BROVANA NEBU IH SCH (08:41)
[2016-12-13] MEDS: PULMICORT IH SCH (08:41)
[2016-12-13] MEDS: LANTHANUM CARBONATE 1000 MG PO SCH (08:53)
[2016-12-13] MEDS: PROTONIX PO SCH (09:00)
[2016-12-13] MEDS: NON-FORMULARY PO SCH (09:01)
== END 2016-12-13 09:09 | disposition home or self-care (01) | DRG 974 ==
LOC: ED 21:13 → CC1 23:39 → 4A 12-07 08:05
PROVIDERS: ADMIT Internal Medicine; ATTEND Internal Medicine
PROC: 0W9930Z Drainage of Right Pleural Cavity with Drainage Device, Percutaneous Approach (ICD-10-PCS; principal; 2016-12-06)
PROC: 5A1D70Z Performance of Urinary Filtration, Intermittent, Less than 6 Hours Per Day (ICD-10-PCS; 2016-12-08)
PROC: 5A1D70Z Performance of Urinary Filtration, Intermittent, Less than 6 Hours Per Day (ICD-10-PCS; 2016-12-10)
PROC: 5A1D70Z Performance of Urinary Filtration, Intermittent, Less than 6 Hours Per Day (ICD-10-PCS; 2016-12-12)
DX: B20 Human immunodeficiency virus [HIV] disease (principal); G93.40 Encephalopathy, unspecified; N18.6 End stage renal disease; J96.21 Acute and chronic respiratory failure with hypoxia; J93.83 Other pneumothorax; R65.10 Systemic inflammatory response syndrome (SIRS) of non-infectious origin without acute organ dysfunction; J44.1 Chronic obstructive pulmonary disease with (acute) exacerbation; I13.2 Hypertensive heart and chronic kidney disease with heart failure and with stage 5 chronic kidney disease, or end stage renal disease; Z99.2 Dependence on renal dialysis; R07.9 Chest pain, unspecified; K21.9 Gastro-esophageal reflux disease without esophagitis; I25.2 Old myocardial infarction; D63.1 Anemia in chronic kidney disease; E87.5 Hyperkalemia; G30.9 Alzheimer's disease, unspecified; F02.80 Dementia in other diseases classified elsewhere, unspecified severity, without behavioral disturbance, psychotic disturbance, mood disturbance, and anxiety; I50.9 Heart failure, unspecified
CPT/HCPCS: 36415; 71010; 71250; 78582; 80048; 80053; 82550; 82553; 82962; 83735; 83880; 84484; 85025; 85379; 85610; 85730; 93005; 93010; 94640; 94760; 96374; 96375; A9540; A9558; J1200; J1644; J2270; J2405; J7030

== ENCOUNTER 2017-04-14 10:38 | Inpatient (IN) | payer MEDICARE ==
[2017-04-14] MEDS ORDERED: TYLENOL PO ONE (11:15)
[2017-04-14] MEDS ORDERED: NACL 0.9% 500 ML 500 ML IV ONE (11:15)
[2017-04-14] MEDS ORDERED: VANCOMYCIN/NS 1 GM/250 ML 1 GM/250 ML BAG IV ONE (11:15)
[2017-04-14] MEDS ORDERED: NARCAN 2 MG/2 ML ONE (11:15)
[2017-04-14] MEDS ORDERED: ZOSYN/NS 4.5GM/100ML 4.5 GM/100 ML VIAL IV ONE (11:15)
[2017-04-14] MEDS ORDERED: LEVAQUIN 750MG/150ML 750 MG/150 ML BAG IV ONE (11:15)
--- NOTE | 2017-04-14 11:24 | Emergency Department Report ---
ED General Adult HPI - General Chief complaint: Dyspnea/Respdistress Stated complaint: WEAK/COUGH/DIFFICULTY BREATHING Time Seen by Provider: 04/14/17 11:04 Source: patient, EMS Mode of arrival: Stretcher Limitations: Altered Mental Status - History of Present Illness Initial comments: 82 yo male with hx of ESRD, HIV dementia and COPD presents with confusion and weakness. Brother is caregiver. This am around 0230, he fell out of bed. Brother stated that he was disoriented. He would not follow commands. He would just lift his leg when he was aksed to walk. He normally walks with a walker. Patient takes Midodrine. HIs blood pressure has been low on both Monday and Monday dialysis sessions. He has chronic cough and chronic dyspnea. Patient states he does not feel well. - Related Data Home Medications Medication Instructions Recorded Confirmed Last Taken Sodium Bicarbonate 650 mg PO BID 11/28/12 03/17/17 03/08/17 08:00 lamiVUDine [Epivir Hbv] 150 mg PO DAILY 04/14/14 03/17/17 03/07/17 12:00 Temazepam [Restoril] 30 mg PO QHS PRN 09/12/15 03/17/17 08/05/16 Lanthanum Carbonate [Fosrenol] 1,000 mg PO AC 08/05/16 03/17/17 03/08/17 08:00 Nevirapine [Viramune] 200 mg PO BID 08/05/16 03/17/17 03/08/17 08:00 Dolutegravir Sodium [Tivicay] 150 mg PO DAILY 12/19/16 03/17/17 03/07/17 12:00 Previous Rx's Medication Instructions Recorded Last Taken Type ALBUTEROL NEB's [Proventil 0.083% 2.5 mg IH Q4HRT PRN #30 day 03/13/17 Unknown Rx NEBS] Acetaminophen [Acetaminophen TAB] 650 mg PO Q4H PRN #30 tablet 03/13/17 Unknown Rx Arformoterol Nebu [Brovana Nebu] 15 mcg IH Q12HRT #30 day 03/13/17 Unknown Rx Aspirin [Adult Low Dose Aspirin EC] 81 mg PO DAILY #30 03/13/17 03/08/17 08:00 Rx Budesonide [Pulmicort Respules] 0.5 mg IH Q12HRT #30 day 03/13/17 Unknown Rx Epoetin Se[place]án 10,000 Unit [Procrit] 10,000 unit IV TWAN PRN #1 vial 03/13/17 Unknown Rx HYDROcodone/HOMATROP 5-1.5 5 ml PO Q4H PRN #30 day 03/13/17 Unknown Rx [HYDROcodone-Homatropin 5-1.5 mg per 5 ML] Midodrine [Proamatine] 10 mg PO Q8H #30 day 03/13/17 Unknown Rx Azithromycin [Zithromax Z-ZIYAD] 0 mg PO DAILY #1 tab 03/22/17 Unknown Rx Fludrocortisone [Florinef] 0.1 mg PO QDAY #30 tablet 03/22/17 Unknown Rx Prednisone [predniSONE 5 mg (6-Day 5 mg PO .TAPER #1 tab.ds.pk 03/22/17 Unknown Rx Pack, 21 Tabs)] Allergies Allergy/AdvReac Type Severity Reaction Status Date / Time No Known Allergies Allergy Verified 03/08/17 10:52 ED Review of Systems ROS: Stated complaint: WEAK/COUGH/DIFFICULTY BREATHING Other details as noted in HPI Comment: All other systems reviewed and negative Constitutional: malaise, weakness Cardiovascular: denies: chest pain Gastrointestinal: denies: abdominal pain, vomiting ED Past Medical Hx - Past Medical History Hx Hypertension: Yes Hx Heart Attack/AMI: Yes Hx Congestive Heart Failure: Yes Hx Deep Vein Thrombosis: No Hx Pulmonary Embolism: No Hx GERD: Yes Hx Renal Disease: Yes Hx Arthritis: Yes Hx Seizures: No Hx Kidney Stones: No Hx Asthma: Yes Hx COPD: Yes Hx Tuberculosis: No Hx Dementia: Yes Hx HIV: Yes Additional medical history: History of spontaneous pneumothorax in the past. Most of PMH obtained through old chart, as family and patient are very poor historians. Right pneumothorax - Surgical History Hx Coronary Stent: (PT AND PT SON DENIES CARDIAC STENT 03/05/13 IN PRE-OP.) Hx Pacemaker: No Hx Internal Defibrillator: No Additional Surgical History: left arm fistula, Right chest tube - Social History Smoking Status: Former Smoker - Medications Home Medications: Home Medications Medication Instructions Recorded Confirmed Last Taken Type Sodium Bicarbonate 650 mg PO BID 11/28/12 03/17/17 03/08/17 08:00 History lamiVUDine [Epivir Hbv] 150 mg PO DAILY 0203/17/17 03/07/17 12:00 History Temazepam [Restoril] 30 mg PO QHS PRN 09/12/15 03/17/17 08/05/16 History Lanthanum Carbonate [Fosrenol] 1,000 mg PO AC 08/05/16 03/17/17 03/08/17 08:00 History Nevirapine [Viramune] 200 mg PO BID 08/05/16 03/17/17 03/08/17 08:00 History Dolutegravir Sodium [Tivicay] 150 mg PO DAILY 12/19/16 03/17/17 03/07/17 12:00 History ALBUTEROL NEB's [Proventil 0.083% 2.5 mg IH Q4HRT PRN #30 day 03/13/17 03/17/17 Unknown Rx NEBS] Acetaminophen [Acetaminophen TAB] 650 mg PO Q4H PRN #30 tablet 03/13/17 Unknown Rx Arformoterol Nebu [Brovana Nebu] 15 mcg IH Q12HRT #30 day 03/13/17 03/17/17 Unknown Rx Aspirin [Adult Low Dose Aspirin EC] 81 mg PO DAILY #30 03/13/17 03/17/17 08:00 Rx Budesonide [Pulmicort Respules] 0.5 mg IH Q12HRT #30 day 03/13/17 03/17/17 Unknown Rx Epoetin Sebastián 10,000 Unit [Procrit] 10,000 unit IV TWAN PRN #1 vial 03/13/1703/17 Unknown Rx HYDROcodone/HOMATROP 5-1.5 5 ml PO Q4H PRN #30 day 03/13/17 03/17/17 Unknown Rx [HYDROcodone-Homatropin 5-1.5 mg per 5 ML] Midodrine [Proamatine] 10 mg PO Q8H #30 day 03/13/17 03/17/17 Unknown Rx Azithromycin [Zithromax Z-ZIYAD] 0 mg PO DAILY #1 tab 03/22/17 Unknown Rx Fludrocortisone [Florinef] 0.1 mg PO QDAY #30 tablet 03/22/17 Unknown Rx Prednisone [predniSONE 5 mg (6-Day 5 mg PO .TAPER #1 tab.ds.pk 03/22/17 Unknown Rx Pack, 21 Tabs)] ED Physical Exam - General Limitations: Altered Mental Status General appearance: alert, other (appears chronically ill, speaking full word sentences, mild WOB) - Head Head exam: Present: atraumatic, normocephalic - Eye Eye exam: Present: normal appearance Pupils: Present: normal accommodation - ENT ENT exam: Present: normal exam, mucous membranes moist - Neck Neck exam: Present: normal inspection. Absent: tenderness, meningismus - Respiratory Respiratory exam: Present: normal lung sounds bilaterally, respiratory distress. Absent: wheezes, rales, rhonchi - Cardiovascular Cardiovascular Exam: Present: regular rate, normal rhythm, bradycardia, tachycardia, normal heart sounds. Absent: systolic murmur, diastolic murmur, rubs, gallop - GI/Abdominal GI/Abdominal exam: Present: soft, distended, normal bowel sounds. Absent: tenderness, guarding, rebound, rigid - Rectal Rectal exam: Present: deferred - Extremities Exam Extremities exam: Present: normal inspection - Back Exam Back exam: Present: normal inspection - Neurological Exam Neurological exam: Present: alert, other (oriented to name and situation, confused re: date location) - Psychiatric Psychiatric exam: Present: normal affect, normal mood - Skin Skin exam: Present: warm, dry, intact, normal color. Absent: rash ED Course Vital Signs 04/14/17 04/14/17 04/14/17 10:43 10:51 11:00 Temperature 100.2 F H Pulse Rate 95 H 93 H 98 H Respiratory 13 26 H 13 Rate Blood Pressure 72/44 72/44 O2 Sat by Pulse 96 Oximetry 04/14/17 04/14/17 04/14/17 11:32 12:00 12:55 Temperature 97.7 F Pulse Rate 86 90 Respiratory 19 20 Rate Blood Pressure 81/28 73/45 O2 Sat by Pulse 88 96 Oximetry ED Medical Decision Making - Lab Data Result diagrams: 04/14/17 11:28 04/14/17 11:30 Laboratory Results - last 24 hr 04/14/17 04/14/17 04/14/17 11:28 11:28 11:30 WBC 11.9 H RBC 3.00 L Hgb 8.3 L Hct 26.9 L MCV 90 MCH 28 MCHC 31 L RDW 21.9 H Plt Count 351 Lymph % (Auto) 11.0 L Motley % (Auto) 10.4 H Eos % (Auto) 0.2 Baso % (Auto) 0.3 Lymph # 1.3 Motley # 1.2 H Eos # 0.0 Baso # 0.0 Seg Neutrophils % 78.1 H Seg Neutrophils # 9.3 H Sodium 142 Potassium 3.5 L Chloride 98.8 Carbon Dioxide 23 Anion Gap 24 BUN 45 H Creatinine 8.0 H Estimated GFR 8 BUN/Creatinine Ratio 6 Glucose 92 Calcium 8.9 Total Bilirubin 0.30 AST 36 ALT 24 Alkaline Phosphatase 79 Troponin T 0.180 H* Total Protein 5.9 L Albumin 2.5 L Albumin/Globulin Ratio 0.7 Triglycerides 134 Cholesterol 94 LDL Cholesterol Direct 32 L HDL Cholesterol 36 L Cholesterol/HDL Ratio 2.61 Vital Signs - 24 hr 04/14/17 04/14/17 04/14/17 10:43 10:51 11:00 Temperature 100.2 F H Pulse Rate 95 H 93 H 98 H Respiratory 13 26 H 13 Rate Blood Pressure 72/44 72/44 O2 Sat by Pulse 96 Oximetry 04/14/17 04/14/17 04/14/17 11:32 12:00 12:55 Temperature 97.7 F Pulse Rate 86 90 Respiratory 19 20 Rate Blood Pressure 81/28 73/45 O2 Sat by Pulse 88 96 Oximetry - EKG Data 04/14/17 11:24 EKG obtained at 1113 Normal sinus rhythm rate of 95 beats minute normal axis normal intervals no ST elevation nonspecific T wave pattern - Medical Decision Making Mr. Rubio presents with fever, chronic cough and delirium. I suspect sepsis related to post-obstruction PNA with hx of lung neoplasm. Dr. Lucio hospitalist will consult. Hospice ia a consideration. Critical care attestation.: If time is entered above; I have spent that time in minutes in the direct care of this critically ill patient, excluding procedure time. ED Disposition Clinical Impression: Sepsis, Pneumonia, Delirium Disposition: OP ADMIT IP TO THIS HOSP Is pt being admited?: Yes Condition: Stable Instructions: Bacterial Pneumonia (ED) Referrals: PRIMARY CARE, [Primary Care Provider] - 3-5 Days
[2017-04-14 11:56] LABS: Basophils % (Auto) 0.3 % (0.0-1.8); Eosinophils % (Auto) 0.2 % (0.0-4.3); Hematocrit 26.9 % (35.5-45.6); Hemoglobin 8.3 gm/dl (11.8-15.2); Lymphocytes # (Auto) 1.3 K/mm3 (1.2-5.4); Mean Corpuscular HGB Conc 31 % (32-34); Mean Corpuscular Hemoglobin 28 pg (28-32); Mean Corpuscular Volume 90 fl (84-94); Monocytes # (Auto) 1.2 K/mm3 (0.0-0.8); Monocytes % (Auto) 10.4 % (0.0-7.3); Platelet Count 351 K/mm3 (140-440)
--- NOTE | 2017-04-14 11:56 | XRay Report ---
PORTABLE CHEST INDICATION: Difficulty breathing. COMPARISON: 03/17/2017 FINDINGS: Portable, frontal chest radiograph now demonstrates approximately 10-11 cm left upper lung mass/opacity, previously approximately 8 cm. Mild infiltration/prominent markings throughout remainder lungs also noted, most crowded toward the bases with subtle right lateral costophrenic angle blunting/possible pleural fluid. Stable cardiomediastinal silhouette, EKG leads and osseous structures. CONCLUSION: Continued interval enlargement of left upper lobe neoplasm, as described. Thank you for the opportunity to participate in this patient's care.
[2017-04-14 11:57] LABS: Red Cell Distribution Width 21.9 % (13.2-15.2)
[2017-04-14] MEDS ORDERED: VANCOMYCIN/0.45 NS 1 GM/250 ML 1 GM/250 ML BAG IV SCH (12:00)
[2017-04-14] MEDS ORDERED: VANCOMYCIN/0.45 NS 1 GM/250 ML 1 GM/250 ML BAG IV ONE (12:00)
[2017-04-14 12:05] LABS: Albumin 2.5 g/dL (3.9-5); Calcium 8.9 mg/dL (8.4-10.2)
[2017-04-14] MEDS ORDERED: PROAMATINE PO ONE (12:11)
[2017-04-14 12:50] LABS: Chol/HDL Ratio 2.61 %
--- NOTE | 2017-04-14 12:55 | Cat Scan Report ---
CT HEAD WITHOUT CONTRAST INDICATION: Fever, sepsis. COMPARISON: 12/12/2012. FINDINGS: Noncontrast head CT demonstrates symmetric, age-appropriate ventricles with mild to moderate periventricular and few white matter hypodense small vessel ischemic disease/small lacunar infarcts as approximately 2 mm right periventricular, axial image 33, series 2. Moderately enlarged sulci predominantly bifrontal with extra-axial CSF spaces enlarged to approximately 0.9 cm on the right and 1 cm on the left, maximal image 32, previously approximately 0.6 and 0.8 cm respectively. No acute infarct, hemorrhage, mass effect or midline shift. No abnormal extra axial fluid collections. Approximately 2 mm lacunar infarct in the t[place] on the right possible, axial image 14. Otherwise unremarkable posterior fossa with preserved basilar cisterns. Bilateral cataract surgery. Mild right maxillary sinus mucosal thickening inferolaterally. Clear remainder imaged paranasal sinuses and mastoid air cells. Atherosclerotic ICA calcifications. Intact calvarium. Normal scalp. Few radiopaque dental material. CONCLUSION: No acute intracranial CT abnormality with atrophy, microvascular changes and chronic bifrontal subdural hygromas again noted, as detailed above. Thank you for the opportunity to participate in this patient's care.
--- NOTE | 2017-04-14 14:05 | History and Physical Report ---
History of Present Illness Chief complaint: confused, and not feeling good History of present illness: 82 YO Male with Hypotension, [place], Asthma, COPD, Dementia, HIV, GERD, ESRD on HD ( M,W,F), Lung Mass presents to ED for evaluation. Pt is confused and unable to provide detailed history. Patient history provided by his brother who is at bedside, and in the primary caregiver. As per brother, the patient has experienced weakness and confusion over the past month with worsening symptoms over the past week. Pt patient became more confused, and fell out of bed around 0230 hrs today. Brother stated that he was disoriented, was unable to follow commands, and was unable to get up from the floor. Pt seen and evaluated in ED and found to have sepsis compliated by encephalopathy. Pt brother denies reports of fever, chills, CP, Palpitations, NVD, BRBPR, Hemoptysis, syncope, trauma, recent ill contacts, leg/calf pain, prolonged travel/immobility, individual/family history of DVT/PE or medication noncompliance. Pt found to have poor prognosis. Discussed hospice care with patient brother, as well as code status. Waited several hours for brother to provide information regarding care plan. Pt admitted to medical floor, while awaiting further guidance regarding patient care plan. As per brother,the patient is pending a home hospice evaluation on Monday. Nephrology consulted in ED. Past History Past Medical History: acute [place], arthritis, COPD, ESRD, heart failure, HIV/AIDS Past Surgical History: Other (LUE AVF, Chest tube placement. ) Social history: single, lives with family. denies: smoking, alcohol abuse, prescription drug abuse Family history: hypertension Medications and Allergies Allergies Allergy/AdvReac Type Severity Reaction Status Date / Time No Known Allergies Allergy Verified 03/08/17 10:52 Home Medications Medication Instructions Recorded Confirmed Last Taken Type lamiVUDine [Epivir Hbv] 150 mg PO DAILY 04/14/14 04/14/17 03/07/17 12:00 History Temazepam [Restoril] 30 mg PO QHS PRN 09/12/15 04/14/17 08/05/16 History Nevirapine [Viramune] 200 mg PO BID 08/05/16 04/14/17 03/08/17 08:00 History Dolutegravir Sodium [Tivicay] 150 mg PO DAILY 12/19/16 04/14/17 03/07/17 12:00 History ALBUTEROL NEB's [Proventil 0.083% 2.5 mg IH Q4HRT PRN #30 day 03/13/17 04/14/17 Unknown Rx NEBS] Acetaminophen [Acetaminophen TAB] 650 mg PO Q4H PRN #30 tablet 03/13/17 Unknown Rx Arformoterol Nebu [Brovana Nebu] 15 mcg IH Q12HRT #30 day 03/13/17 04/14/17 Unknown Rx Aspirin [Adult Low Dose Aspirin EC] 81 mg PO DAILY #30 03/13/17 04/14/17 08:00 Rx Budesonide [Pulmicort Respules] 0.5 mg IH Q12HRT #30 day 03/13/17 04/14/17 Unknown Rx HYDROcodone/HOMATROP 5-1.5 5 ml PO Q4H PRN #30 day 03/13/17 04/14/17 Unknown Rx [HYDROcodone-Homatropin 5-1.5 mg per 5 ML] Midodrine [Proamatine] 10 mg PO Q8H #30 day 03/13/17 04/14/17 Unknown Rx Fludrocortisone [Florinef] 0.1 mg PO QDAY #30 tablet 03/22/17 04/14/17 Unknown Rx Prednisone [predniSONE 5 mg (6-Day 5 mg PO .TAPER #1 tab.ds.pk 03/22/17 Unknown Rx Pack, 21 Tabs)] Review of Systems ROS unobtainable: due to mental status Exam - Constitutional Vitals: Temp Pulse Resp BP Pulse Ox 97.7 F 87 16 81/44 87 04/14/17 12:55 04/14/17 12:30 04/14/17 12:30 04/14/17 12:30 04/14/17 12:30 General appearance: Present: mild distress - EENT Eyes: Present: PERRL ENT: hearing intact, clear oral mucosa - Neck Neck: Present: supple, normal ROM - Respiratory Respiratory: bilateral: diminished, rhonchi - Cardiovascular Heart Sounds: Present: S1 & S2. Absent: rub, click - Extremities Extremities: pulses symmetrical, No edema Peripheral Pulses: abnormal (Capillary refill greater than 3.6 seconds) - Abdominal General gastrointestinal: Present: soft, non-tender, non-distended Male genitourinary: Present: normal - Rectal Rectal Exam: normal exam-external/orifice - Integumentary Integumentary: Present: clear, dry, clammy, decreased turgor - Musculoskeletal Musculoskeletal: generalized weakness - Psychiatric Psychiatric: no intact judgment & insight, no memory intact - Neurologic Neurologic: no gait normal Results - Labs CBC & Chem 7: 04/14/17 11:28 04/14/17 11:30 Labs: Abnormal lab results 04/14/17 04/14/17 04/14/17 Range/Units 11:28 11:28 11:30 WBC 11.9 H (4.5-11.0) K/mm3 RBC 3.00 L (3.65-5.03) M/mm3 Hgb 8.3 L (11.8-15.2) gm/dl Hct 26.9 L (35.5-45.6) % MCHC 31 L (32-34) % RDW 21.9 H (13.2-15.2) % Lymph % (Auto) 11.0 L (13.4-35.0) % [place] % (Auto) 10.4 H (0.0-7.3) % [place] # 1.2 H (0.0-0.8) K/mm3 Seg Neutrophils % 78.1 H (40.0-70.0) % Seg Neutrophils # 9.3 H (1.8-7.7) K/mm3 Potassium 3.5 L (3.6-5.0) mmol/L BUN 45 H (9-20) mg/dL Creatinine 8.0 H (0.8-1.5) mg/dL Troponin T 0.180 H* (0.00-0.029) ng/mL Total Protein 5.9 L (6.3-8.2) g/dL Albumin 2.5 L (3.9-5) g/dL LDL Cholesterol Direct 32 L (50-130) mg/dL HDL Cholesterol 36 L (40-59) mg/dL Assessment and Plan - Patient Problems (1) Sepsis Current Visit: Yes Status: Acute Qualifiers: Sepsis type: sepsis due to unspecified organism Qualified Code(s): A41.9 - Sepsis, unspecified organism Plan to address problem: IV antibiotics, monitor uop q shift, serial lactic acid, blood cultures, urinalysis, chest X ray. (2) ESRD (end stage renal disease) Current Visit: Yes Status: Acute Plan to address problem: Nephrology consulted, monitor uop q shift, daily weight, dialysis as per renal team. (3) Severe malnutrition Current Visit: Yes Status: Acute Plan to address problem: Encourage oral intake when awake and alert only. (4) Encephalopathy Current Visit: Yes Status: Acute Plan to address problem: CT Head, neuro checks, IVF resuscitation, supportive care. (5) Acute respiratory failure Current Visit: Yes Status: Acute Qualifiers: Respiratory failure complication: hypoxia Qualified Code(s): J96.01 - Acute respiratory failure with hypoxia Plan to address problem: Supplemental oxygen, nebulizer, NIPPV as clinically indicated. (6) DVT prophylaxis Current Visit: Yes Status: Acute
[2017-04-14] MEDS ORDERED: ZOFRAN IV PRN (19:55)
[2017-04-14] MEDS ORDERED: PROVENTIL IH PRN (19:55)
[2017-04-14] MEDS ORDERED: TYLENOL PO PRN (19:55)
[2017-04-14] MEDS ORDERED: VANCOMYCIN VIAL IV ONE (20:11)
[2017-04-14] MEDS ORDERED: NACL 0.9% 1000 ML IV ONE (20:11)
[2017-04-14] MEDS ORDERED: VANCOMYCIN PHARMACY TO DOSE IV SCH (21:00)
[2017-04-14] MEDS: ZOSYN/NS 2.25 GM/50ML 2.25 GM/50 ML BAG IV SCH (21:52)
[2017-04-15] MEDS: ZOSYN/NS 2.25 GM/50ML 2.25 GM/50 ML BAG IV SCH ×3 (07:00→22:27)
[2017-04-15] MEDS ORDERED: PROVENTIL IH PRN (09:52)
--- NOTE | 2017-04-15 09:59 | Progress Note ---
Assessment and Plan Assessment and plan: Severe Sepsis/Septic shock Cont. IV antibiotics, initial lactic acidelevated. F/U blood cultures, urinalysis, chest X ray. Transfer to ICU and initiate levophed drip. ID consultation. Pt. has chronic hypotension. Restart midodrine and florinef ESRD (end stage renal disease) Nephrology consulted, monitor uop q shift, daily weight, dialysis as per renal team. Severe malnutrition Encourage oral intake when awake and alert only. Toxic metabolic Encephalopathy CT Head, neuro checks, IVF resuscitation, supportive care. Cont. to treat underlying causes Acute hypoxemic respiratory failure Supplemental oxygen, nebulizer, NIPPV as clinically indicated. COPD with acute exacerbation Nebulizers, oxygen, Initiate IV steroids(Solumedrol 40mg BID), Cont. IV antibiotics, supportive care h/o lung mass pt was evaluated by pulmonology in the past, family refused aggressive workup and management History of HIV/AIDS Continue current antiretroviral therapy, ID evaluation Anemia of chronic disease Procrit during dialysis, transfuse as needed DVT prophylaxis History Interval history: Nurse reports hypotension this am with SBP in the 60s Hospitalist Physical - Constitutional Vitals: Temp Pulse Resp BP Pulse Ox 98.3 F 86 18 60/54 94 04/15/17 06:22 04/15/17 06:22 04/15/17 06:22 04/15/17 09:42 04/15/17 06:22 General appearance: Present: mild distress - EENT Eyes: Present: PERRL, EOM intact ENT: hearing intact, clear oral mucosa, dentition normal - Neck Neck: Present: supple, normal ROM - Respiratory Respiratory effort: normal Respiratory: bilateral: diminished, rales, rhonchi - Cardiovascular Rhythm: regular Heart Sounds: Present: S1 & S2. Absent: gallop, rub - Extremities Extremities: no ischemia, No edema, Full ROM - Abdominal General gastrointestinal: soft, non-tender, non-distended, normal bowel sounds - Integumentary Integumentary: Present: clear, warm, dry - Neurologic Neurologic: CNII-XII intact, moves all extremities Results - Labs CBC & Chem 7: 04/14/17 11:28 04/14/17 11:30 Labs: Laboratory Last Values WBC 11.9 K/mm3 (4.5-11.0) H 04/14/17 11:28 RBC 3.00 M/mm3 (3.65-5.03) L 04/14/17 11:28 Hgb 8.3 gm/dl (11.8-15.2) L 04/14/17 11:28 Hct 26.9 % (35.5-45.6) L 04/14/17 11:28 MCV 90 fl (84-94) 04/14/17 11: MCH 28 pg (28-32) 04/14/17 11:28 MCHC 31 % (32-34) L 04/14/17 11:28 RDW 21.9 % (13.2-15.2) H 04/14/17 11:28 Plt Count 351 K/mm3 (140-440) 04/14/17 11:28 Lymph % (Auto) 11.0 % (13.4-35.0) L 04/14/17 11:28 [place] % (Auto) 10.4 % (0.0-7.3) H 04/14/17 11:28 Eos % (Auto) 0.2 % (0.0-4.3) 04/14/17 11:28 Baso % (Auto) 0.3 % (0.0-1.8) 04/14/17 11:28 Lymph # 1.3 K/mm3 (1.2-5.4) 04/14/17 11:28 [place] # 1.2 K/mm3 (0.0-0.8) H 04/14/17 11:28 Eos # 0.0 K/mm3 (0.0-0.4) 04/14/17 11:28 Baso # 0.0 K/mm3 (0.0-0.1) 04/14/17 11:28 Seg Neutrophils % 78.1 % (40.0-70.0) H 04/14/17 11:28 Seg Neutrophils # 9.3 K/mm3 (1.8-7.7) H 04/14/17 11:28 Sodium 142 mmol/L (137-145) 04/14/17 11:30 Potassium 3.5 mmol/L (3.6-5.0) L 04/14/17 11:30 Chloride 98.8 mmol/L (98-107) 04/14/17 11:30 Carbon Dioxide 23 mmol/L (22-30) 04/14/17 11:30 Anion Gap 24 mmol/L 04/14/17 11:30 BUN 45 mg/dL (9-20) H 04/14/17 11:30 Creatinine 8.0 mg/dL (0.8-1.5) H 04/14/17 11:30 Estimated GFR 8 ml/min 04/14/17 11:30 BUN/Creatinine Ratio 6 % 04/14/17 11:30 Glucose 92 mg/dL (75-100) 04/14/17 11:30 Lactic Acid 1.40 mmol/L (0.7-2.0) 04/15/17 07:43 Calcium 8.9 mg/dL (8.4-10.2) 04/14/17 11:30 Total Bilirubin 0.30 mg/dL (0.1-1.2) 04/14/17 11:30 AST 36 units/L (5-40) 04/14/17 11:30 ALT 24 units/L (7-56) 04/14/17 11:30 Alkaline Phosphatase 79 units/L (35-129) 04/14/17 11:30 Troponin T 0.180 ng/mL (0.00-0.029) H* 04/14/17 11:28 Total Protein 5.9 g/dL (6.3-8.2) L 04/14/17 11:30 Albumin 2.5 g/dL (3.9-5) L 04/14/17 11:30 Albumin/Globulin Ratio 0.7 % 04/14/17 11:30 Triglycerides 134 mg/dL (2-149) 04/14/17 11:28 Cholesterol 94 mg/dL (50-199) 04/14/17 11:28 LDL Cholesterol Direct 32 mg/dL (50-130) L 04/14/17 11:28 HDL Cholesterol 36 mg/dL (40-59) L 04/14/17 11:28 Cholesterol/HDL Ratio 2.61 % 04/14/17 11:28
[2017-04-15] MEDS ORDERED: DOLUTEGRAVIR SODIUM PO SCH (10:00)
[2017-04-15] MEDS ORDERED: VIRAMUNE PO SCH (10:00)
[2017-04-15] MEDS ORDERED: LAMIVUDINE 150 MG PO SCH (10:00)
[2017-04-15] MEDS ORDERED: FLORINEF PO SCH (11:00)
[2017-04-15] MEDS: HALFPRIN EC PO SCH (11:19)
[2017-04-15] MEDS: PROAMATINE PO SCH ×2 (11:19→17:38)
--- NOTE | 2017-04-15 11:36 | Consultation ---
History of Present Illness - Reason for Consult Consult date: 04/15/17 end stage renal disease Requesting physician: IVAN HUERTAS - History of Present Illness Mr. Rubio is a 82-year-old -[place] male with past medical history significant for end-stage renal disease on maintenance hemodialysis, HIV disease , lung mass, chronic hypotension and coronary artery disease was brought into the emergency room because of hypotension and mental confusion. Patient is not admitted for further management. Patient has recently been diagnosed to have a lung mass. However because of his poor general health further investigation was detailed. Patient does have underlying dementia as well. No further information could be obtained from patient. Information obtained from patient' s current chart. Also placed a call to patient's son. Awaiting callback. Patient undergoes hemodialysis at [facility] . He however did not have his dialysis yesterday. Past History Past Medical History: acute [place], arthritis, COPD, ESRD, heart failure, HIV/AIDS Past Surgical History: Other (LUE AVF, Chest tube placement. ) Social history: single, lives with family. denies: smoking, alcohol abuse, prescription drug abuse Family history: hypertension Medications and Allergies Allergies Allergy/AdvReac Type Severity Reaction Status Date / Time No Known Allergies Allergy Verified 03/08/17 10:52 Home Medications Medication Instructions Recorded Confirmed Last Taken Type lamiVUDine [Epivir Hbv] 150 mg PO DAILY 04/14/14 04/14/17 03/07/17 12:00 History Temazepam [Restoril] 30 mg PO QHS PRN 09/12/15 04/14/17 08/05/16 History Nevirapine [Viramune] 200 mg PO BID 08/05/16 04/14/17 03/08/17 08:00 History Dolutegravir Sodium [Tivicay] 150 mg PO DAILY 12/19/16 04/14/17 03/07/17 12:00 History ALBUTEROL NEB's [Proventil 0.083% 2.5 mg IH Q4HRT PRN #30 day 03/13/17 04/14/17 Unknown Rx NEBS] Acetaminophen [Acetaminophen TAB] 650 mg PO Q4H PRN #30 tablet 03/13/17 Unknown Rx Arformoterol Nebu [Brovana Nebu] 15 mcg IH Q12HRT #30 day 03/13/17 04/14/17 Unknown Rx Aspirin [Adult Low Dose Aspirin EC] 81 mg PO DAILY #30 03/13/17 04/14/17 08:00 Rx Budesonide [Pulmicort Respules] 0.5 mg IH Q12HRT #30 day 03/13/17 04/14/17 Unknown Rx HYDROcodone/HOMATROP 5-1.5 5 ml PO Q4H PRN #30 day 03/13/17 04/14/17 Unknown Rx [HYDROcodone-Homatropin 5-1.5 mg per 5 ML] Midodrine [Proamatine] 10 mg PO Q8H #30 day 03/13/17 04/14/17 Unknown Rx Fludrocortisone [Florinef] 0.1 mg PO QDAY #30 tablet 03/22/17 04/14/17 Unknown Rx Prednisone [predniSONE 5 mg (6-Day 5 mg PO .TAPER #1 tab.ds.pk 03/22/17 Unknown Rx Pack, 21 Tabs)] Active Meds: Active Medications Acetaminophen (Tylenol) 650 mg PO Q4H PRN PRN Reason: Pain MILD(1-3)/Fever >100.5/BELTRAN Acetaminophen (Tylenol) 650 mg PO Q4H PRN PRN Reason: Pain MILD(1-3)/Fever >100.5/BELTRAN Albuterol (Proventil) 2.5 mg IH Q4HRT PRN PRN Reason: Shortness Of Breath Albuterol (Proventil) 2.5 mg IH Q4HRT PRN PRN Reason: Shortness Of Breath Arformoterol Tartrate (Brovana Nebu) 15 mcg IH Q12HRT [facility] Aspirin (Halfprin Ec) 81 mg PO DAILY [facility] Last Admin: 04/15/17 11:19 Dose: 81 mg Budesonide (Pulmicort) 0.5 mg IH Q12HRT [facility] Fludrocortisone Acetate (Florinef) 0.1 mg PO QDAY [facility] Hydrocodone Bit/Homatropine Methylb (Hydromet) 5 ml PO Q6H PRN PRN Reason: Cough Piperacillin Sod/Tazobactam Sod (Zosyn/Ns 2.25 Gm/50ml) 2.25 gm in 50 mls @ 100 mls/hr IV Q8HR [facility] Last Admin: 04/15/17 07:00 Dose: 100 mls/hr Norepinephrine (Levophed Drip 4 Mg/Ns 250 Ml) 4 mg in 250 mls @ 7.5 mls/hr IV TITR FREDDY; 2 MCG/MIN PRN Reason: Protocol Methylprednisolone Sodium Succinate (Solu-Medrol) 40 mg IV Q12HR [facility] Last Admin: 04/15/17 11:20 Dose: 40 mg Midodrine (Proamatine) 10 mg PO Q8H [facility] Last Admin: 04/15/17 11:19 Dose: 10 mg Miscellaneous Medication (Dolutegravir Sodium [Tivicay]) 150 mg PO DAILY [facility] Miscellaneous Medication (Lamivudine [Epivir Hbv]) 150 mg PO DAILY [facility] Nevirapine (Viramune) 200 mg PO BID [facility] Ondansetron HCl (Zofran) 4 mg IV Q8H PRN PRN Reason: N/V unrelieved by [place]ais Vancomycin HCl (Vancomycin Pharmacy To Dose) 1 each IV PKCONSULT FREDDY PRN Reason: Protocol Review of Systems ROS unobtainable: due to mental status Exam - Vital Signs Vital signs: Vital Signs Pulse Resp 95 H 13 04/14/17 10:43 04/14/17 10:43 - General Appearance General appearance: chronically ill, frail, other (-[place] male. 50% Ventimask in place) EENT: PERRL, mucous membranes moist Neck: Present: neck supple, trachea midline. Absent: JVD/HJR, Masses Respiratory: Ronchi (few scattered rhonchi) Heart: regular, normal heart rate, S1S2, no murmurs Gastrointestinal: Present: normal, normoactive bowel sounds Integumentary: no rash, other (no peripheral edema. AV fistula in his left upper arm. Good bruit and thrill.) Results - Lab Results 04/14/17 11:28 04/14/17 11:30 Most recent lab results Calcium 8.9 mg/dL (8.4-10.2) 04/14/17 11:30 Assessment and Plan Impression * End-stage renal disease on maintenance hemodialysis * Lung mass * HIV disease * Hypotension * Dementia * Coronary artery disease * Anemia secondary to chronic disease Recommendations * Patient is currently hypotensive and electrolytes and volume status does not require dialysis today * Chest x-ray shows an enlarging lung mass. Suspect possible malignant process * Consider palliative care * Avoid nephrotoxins * No IV, BP of venipuncture and access arm * Adjust diet and meds for ESRD state * Placed call to patient's son Hong and left message. Awaiting callback
[2017-04-15] MEDS ORDERED: BUMINATE-5 IV STA (15:45)
--- NOTE | 2017-04-15 15:58 | Consultation ---
History of Present Illness Consult date: 04/15/17 Requesting physician: SUSI BUTLER Reason for consult: COPD, lung mass, other (Severe Sepsis) History of present illness: PULMONARY/CCM CONSULT NOTE (Full dictation # [id number]) Please see dictated notes for full details Past History Past Medical History: acute [place], arthritis, COPD, ESRD, heart failure, HIV/AIDS Past Surgical History: Other (LUE AVF, Chest tube placement. ) Social history: single, lives with family. denies: smoking, alcohol abuse, prescription drug abuse Family history: hypertension Medications and Allergies Allergies Allergy/AdvReac Type Severity Reaction Status Date / Time No Known Allergies Allergy Verified 03/08/17 10:52 Home Medications Medication Instructions Recorded Confirmed Last Taken Type lamiVUDine [Epivir Hbv] 150 mg PO DAILY 04/14/14 04/14/17 03/07/17 12:00 History Temazepam [Restoril] 30 mg PO QHS PRN 09/12/15 04/14/17 08/05/16 History Nevirapine [Viramune] 200 mg PO BID 08/05/16 04/14/17 03/08/17 08:00 History Dolutegravir Sodium [Tivicay] 150 mg PO DAILY 12/19/16 04/14/17 03/07/17 12:00 History ALBUTEROL NEB's [Proventil 0.083% 2.5 mg IH Q4HRT PRN #30 day 03/13/17 04/14/17 Unknown Rx NEBS] Acetaminophen [Acetaminophen TAB] 650 mg PO Q4H PRN #30 tablet 03/13/17 Unknown Rx Arformoterol Nebu [Brovana Nebu] 15 mcg IH Q12HRT #30 day 03/13/17 04/14/17 Unknown Rx Aspirin [Adult Low Dose Aspirin EC] 81 mg PO DAILY #30 03/13/17 04/14/17 08:00 Rx Budesonide [Pulmicort Respules] 0.5 mg IH Q12HRT #30 day 03/13/17 04/14/17 Unknown Rx HYDROcodone/HOMATROP 5-1.5 5 ml PO Q4H PRN #30 day 03/13/17 04/14/17 Unknown Rx [HYDROcodone-Homatropin 5-1.5 mg per 5 ML] Midodrine [Proamatine] 10 mg PO Q8H #30 day 03/13/17 04/14/17 Unknown Rx Fludrocortisone [Florinef] 0.1 mg PO QDAY #30 tablet 03/22/17 04/14/17 Unknown Rx Prednisone [predniSONE 5 mg (6-Day 5 mg PO .TAPER #1 tab.ds.pk 03/22/17 Unknown Rx Pack, 21 Tabs)] Active Meds: Active Medications Acetaminophen (Tylenol) 650 mg PO Q4H PRN PRN Reason: Pain MILD(1-3)/Fever >100.5/BELTRAN Albuterol (Proventil) 2.5 mg IH Q4HRT PRN PRN Reason: Shortness Of Breath Last Admin: 04/15/17 15:36 Dose: 2.5 mg Arformoterol Tartrate (Brovana Nebu) 15 mcg IH Q12HRT [facility] Aspirin (Halfprin Ec) 81 mg PO DAILY [facility] Last Admin: 04/15/17 11:19 Dose: 81 mg Budesonide (Pulmicort) 0.5 mg IH Q12HRT [facility] Fludrocortisone Acetate (Florinef) 0.1 mg PO QDAY [facility] Hydrocodone Bit/Homatropine Methylb (Hydromet) 5 ml PO Q6H PRN PRN Reason: Cough Piperacillin Sod/Tazobactam Sod (Zosyn/Ns 2.25 Gm/50ml) 2.25 gm in 50 mls @ 100 mls/hr IV Q8HR [facility] Last Admin: 04/15/17 15:03 Dose: 100 mls/hr Norepinephrine (Levophed Drip 4 Mg/Ns 250 Ml) 4 mg in 250 mls @ 7.5 mls/hr IV TITR FREDDY; 2 MCG/MIN PRN Reason: Protocol Methylprednisolone Sodium Succinate (Solu-Medrol) 40 mg IV Q12HR [facility] Last Admin: 04/15/17 11:20 Dose: 40 mg Midodrine (Proamatine) 10 mg PO Q8H [facility] Last Admin: 04/15/17 11:19 Dose: 10 mg Miscellaneous Medication (Non-Formulary) 0.5 each PO QDAY [facility] Nevirapine (Viramune) 200 mg PO BID [facility] Ondansetron HCl (Zofran) 4 mg IV Q8H PRN PRN Reason: N/V unrelieved by [place] Vancomycin HCl (Vancomycin Pharmacy To Dose) 1 each IV PKCONSULT FREDDY PRN Reason: Protocol Physical Examination Vital signs: Vital Signs Pulse Resp 95 H 13 04/14/17 10:43 04/14/17 10:43 Results - Laboratory Findings CBC and BMP: 04/14/17 11:28 04/14/17 11:30 Abnormal lab findings: Abnormal Labs 04/14/17 04/14/17 04/14/17 11:28 11:28 11:30 WBC 11.9 H RBC 3.00 L Hgb 8.3 L Hct 26.9 L MCHC 31 L RDW 21.9 H Lymph % (Auto) 11.0 L [place] % (Auto) 10.4 H [place] # 1.2 H Seg Neutrophils % 78.1 H Seg Neutrophils # 9.3 H Potassium 3.5 L BUN 45 H Creatinine 8.0 H Lactic Acid Troponin T 0.180 H* Total Protein 5.9 L Albumin 2.5 L LDL Cholesterol Direct 32 L HDL Cholesterol 36 L 04/14/17 04/14/17 04/14/17 11:51 23:02 23:55 WBC RBC Hgb Hct MCHC RDW Lymph % (Auto) [place] % (Auto) [place] # Seg Neutrophils % Seg Neutrophils # Potassium BUN Creatinine Lactic Acid 3.10 H* 2.70 H* 2.30 H* Troponin T Total Protein Albumin LDL Cholesterol Direct HDL Cholesterol 04/15/17 00:56 WBC RBC Hgb Hct MCHC RDW Lymph % (Auto) [place] % (Auto) [place] # Seg Neutrophils % Seg Neutrophils # Potassium BUN Creatinine Lactic Acid 3.20 H* Troponin T Total Protein Albumin LDL Cholesterol Direct HDL Cholesterol
--- NOTE | 2017-04-15 17:11 | Consultation ---
PULMONARY CRITICAL CARE CONSULT NOTE CONSULTING PHYSICIAN: Dr. Mcdermott. REASON FOR CONSULTATION: Sepsis syndrome, hypotension. CHIEF COMPLAINT AND HISTORY OF PRESENT ILLNESS: The patient is an 82-year-old male known to me with past medical history significant for CVA, COPD, as well as large left upper lobe lung mass that family has refused further evaluation before in the past. He came into the Emergency Room secondary to confusion. History was provided by his brother. He had experienced weakness and confusion over the past month, worsening symptoms in the past week. He had denied any fevers or chills. Denied any chest pains. Denied nausea or vomiting. Denied any significant blood loss. He denied loss of trial of consciousness. He denied any history of venous thromboembolic phenomenon, any recent long distance travel. Reportedly, the patient is pending home hospice evaluation. He was evaluated in the Emergency Room and admitted with a diagnosis of sepsis to the medical floor. Earlier today, his mean arterial pressures dropped below 60 mmHg and hence the consult. When I stopped by to see him, he was resting in bed and was not any more confused than I have seen him in the past. He does have a significant history of dementia. He denied any acute chest pain. He denied fevers. He denied chills. There was no nausea or vomiting. He just wanted to go home. This really is as much of the history of presentation as I have. Now, the patient is not a current tobacco smoker. I believe he does have a remote tobacco smoking history. PAST MEDICAL HISTORY: 1. Severe home oxygen dependent chronic obstructive lung disease. 2. 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 3. History of coronary artery disease. 4. End-stage renal disease, on dialysis. 5. HIV positive. 6. History of cardiomyopathy. 7. History of arthritis. 8. History of recurrent spontaneous pneumothoraces. PAST SURGICAL HISTORY: Status post left upper extremity, AV fistula, as well as prior chest tube placements. MEDICATIONS: He was on at the time I stopped by to see him were reviewed. Pertinent medications included Brovana 15 mcg nebulized q. 12 hours, aspirin 81 mg p.o. daily, Pulmicort 0.5 mg inhaled q. 12 hours, Florinef 0.1 mg p.o. daily. Hydromet 5 mL p.o. q. 6 hours p.r.n., Solu-Medrol 40 mg IV q. 12 hours, midodrine 10 mg p.o. q. 8 hours, Viramune 200 mg p.o. b.i.d. He apparently was on Levophed at 2 mcg per minute in the Emergency Room, not currently upstairs. He is on p.r.n. Zofran. He is on Zosyn 2.25 g IV q. 8 hours and received 1 dose of vancomycin. ALLERGIES: No known drug allergies. DIET: Thin gentleman. He has lost some weight since I have last seen him. FAMILY AND SOCIAL HISTORY: Lives in the community with family. He is single. He has a son, but he his healthcare decisions according to his son are now being made by his brother and sister. Family history otherwise positive for hypertension. REVIEW OF SYSTEMS: Difficult to obtain secondary to patient's dementia. Since he has been here, no gross hematochezia or melena, no gross hematuria, no hematemesis. No hemoptysis. No new onset seizures. No new onset focal weakness. Attempts to obtain a complete review of systems were frustrated by his medical and mental status. Otherwise, there is as in the body of the history above. PHYSICAL EXAMINATION: VITAL SIGNS: On presentation in the Emergency Room, he had a fever of 100.2 degrees Fahrenheit, pulse was 95, respiratory rate was 13, blood pressure was 72/44, oxygen sats were 96%, inspired oxygen concentration was not recorded. GENERAL: Normocephalic, atraumatic, elderly looking male, looks his stated age, talking to me in full sentences on supplemental oxygen at best, at worst in mild respiratory distress. HEAD, EYES, EARS, NOSE AND THROAT: He is anicteric. No conjunctival erythema. Oropharynx is dry. No gross jugular venous distention, no thyromegaly, no palpable lymph nodes in the supraclavicular or submandibular lymph node chains. LUNGS: Auscultation of both lung gruber revealed bilateral rales and diminished bilateral breath sounds, no wheezing. HEART: Sounds 1 and 2 were heard at the time of my evaluation, regular in rate and rhythm. No rubs, no murmurs. ABDOMEN: Soft, full, bowel sounds are positive, nontender. No palpable hepatosplenomegaly. EXTREMITIES: Without overt digital clubbing, no cyanosis, no pedal edema. Dorsalis pedis pulses are palpable bilaterally. NEUROLOGIC: Pupils are equal, round, about 4 mm, reactive to light. Extraocular muscle movements are intact. He moves all 4 extremities spontaneously. SKIN: The skin is of poor turgor without any rash or cellulitis. LABORATORY DATA: From my review are as follows: White cell count 11,900; hemoglobin 8.3; hematocrit 26.9; platelet count 351. No manual differential. No band forms. Serum sodium 142, potassium 3.5, chloride 99, bicarb 23, BUN 45, creatinine 8.0, glucose was 92. Lactic acid level was 3.1. Liver function test within normal limits. Troponin up at 0.18. LDL cholesterol was 36. Most recent lactic acid level is 3.2. Blood cultures, no growth to date. He had a chest x-ray. He also had a CT scan of his head. The CT scan of the head I have reviewed the report and there was no acute intracranial process noted. The chest x-ray shows a left upper lobe lung mass that is increasing in size and occupying the whole left upper lobe region at this point. No gross pneumothorax, no gross bony fractures. PREAMBLE: I have discussed with his son, Silverio, who states that his brother and sister have made him a full code; however, they still have decided at this point not to investigate the left upper lobe lesion. I have asked him to discuss with his brother and sister about that and by that I mean the patient's brother and sister because I have asked what will the rationale be before putting a gentleman on life support that has possibly terminal lesion that family does not want to treat, and I have asked him to again get in touch with his family. For now, he will remain a full code. ASSESSMENT AND PLAN: 1. Severe sepsis. 2. Left upper lobe lung mass, probable lung cancer. 3. End-stage renal disease, on dialysis. 4. Adult failure to thrive. 5. Anemia. 6. Elevated serum troponins. 7. End-stage renal disease, on dialysis. PLAN: 1. I will bolus him 500 mL of 5% albumin at this time and reevaluate him. I would also start IV normal saline at 100 mL an hour for a total of about a liter that he will be reevaluated. I am going to get a urinalysis and send for cultures and sensitivities. Sputum will also be sent for cultures and sensitivities just in case we are missing atypical pneumonia. I will go ahead and I will add Levaquin to the mix or Zithromax for coverage of atypical pneumonias. Sputum will also be sent for Gram stain, cultures and sensitivities. I will get a CRP level to better evaluate the true infectious potential of this leukocytosis. I will discontinue the Solu-Medrol and increase the dose essentially but put him on stress dose steroids with Solu-Cortef. He will be started on GI prophylaxis as well as DVT prophylaxis. We will continue his bronchodilators. Bilevel positive airway pressure ventilation therapy will be used p.r.n. Arterial blood gas will be gotten to evaluate acid base balance. Flu and pneumonia vaccination will be addressed per protocol. Thank you very much for the consult. He is critically ill. I do believe, however, that we can turn him around without a need to restart significant vasopressor support. I will reevaluate him and see if he does indeed need to come down to the Intensive Care Unit. He is very clinically stable at the time I saw him. Thank you very much for the consult. We will follow along and make further recommendations as picture progresses/becomes clearer. I spent about 35 minutes point without overlap excluding any procedural time that may be necessary. JOB# [id number] ANTHONY/LELIA OLSON
[2017-04-15] MEDS: NACL 0.9% 1000 ML 1,000 ML IV SCH (18:50)
[2017-04-15] MEDS: BROVANA NEBU IH SCH (20:59)
[2017-04-15] MEDS: PULMICORT IH SCH (20:59)
[2017-04-15] MEDS ORDERED: ZOSYN/NS 4.5GM/100ML 4.5 GM/100 ML VIAL IV SCH (22:00)
[2017-04-15] MEDS: PEPCID PO SCH (22:27)
[2017-04-15] MEDS: VIRAMUNE PO SCH (22:27)
[2017-04-16] MEDS: PROAMATINE PO SCH ×2 (02:25→10:17)
[2017-04-16] MEDS: HYDROMET PO PRN ×2 (02:25→17:51)
[2017-04-16 04:24] LABS: Hematocrit 25.2 % (35.5-45.6); Hemoglobin 7.6 gm/dl (11.8-15.2); Mean Corpuscular HGB Conc 30 % (32-34); Mean Corpuscular Hemoglobin 28 pg (28-32); Mean Corpuscular Volume 91 fl (84-94); Platelet Count 333 K/mm3 (140-440); Red Blood Count 2.77 M/mm3 (3.65-5.03)
[2017-04-16 04:27] LABS: Red Cell Distribution Width 21.9 % (13.2-15.2)
[2017-04-16 04:34] LABS: Calcium 8.6 mg/dL (8.4-10.2)
[2017-04-16] MEDS: ZOSYN/NS 2.25 GM/50ML 2.25 GM/50 ML BAG IV SCH ×3 (05:06→22:03)
[2017-04-16 05:33] LABS: Band Neutrophils # (Manual) 2.2 K/mm3; Basophils % (Manual) 0 % (0.0-1.8); Eosinophils % (Manual) 0 % (0.0-4.3); Total Cells Counted 100
[2017-04-16 05:34] LABS: Anisocytosis 1+; Platelet Estimate Consistent w Auto
[2017-04-16] MEDS: LEVOPHED DRIP 4 MG/NS 250 ML 4 MG/250 ML BAG IV SCH (08:42)
[2017-04-16] MEDS: PULMICORT IH SCH ×2 (08:51→19:15)
[2017-04-16] MEDS: BROVANA NEBU IH SCH ×2 (08:51→19:15)
--- NOTE | 2017-04-16 09:53 | Progress Note ---
Assessment and Plan Severe sepsis. Left upper lobe lung mass, probable lung cancer. End-stage renal disease, on dialysis. Adult failure to thrive. Anemia. Elevated serum troponins. End-stage renal disease, on dialysis. - bolus 5% albumin (25gm) - continue IVNS - continue empiric AB's and follow C&S - supplemental oxygen to keep sats > 90% - vasopressors if MAP remains < 60mmHg - continue GI & VTE prophylaxis - HD/UF per nephrology (would recommend against UF acutely) - continue other care per attending / other consultants ....30' CCT ...re-evaluate in am & prn Subjective Date of service: 04/16/17 Principal diagnosis: Severe Sepsis; Acute COPD exacerbation; ESRD on Dialysis Interval history: Patient is seen today for: Severe Sepsis; Acute COPD exacerbation; ESRD on Dialysis Seen and examined at bedside; 24hour events reviewed; nursing and respiratory care staff consulted; no adverse overnight events reported to me; remains hypotensive; no syncope/LOC or dizziness; denies acute chest pains or increased SOB; Son was visiting Objective Vital Signs - 12hr 04/15/17 04/15/17 04/16/17 22:00 23:25 00:09 Temperature Pulse Rate 68 Pulse Rate [ Anterior Bilateral Throughout] Pulse Rate [ 84 Apical] Respiratory 24 40 H Rate Respiratory Rate [Anterior Bilateral Throughout] Blood Pressure 115/48 O2 Sat by Pulse 98 Oximetry 04/16/17 04/16/17 04/16/17 00:10 01:00 01:45 Temperature Pulse Rate Pulse Rate [ Anterior Bilateral Throughout] Pulse Rate [ Apical] Respiratory Rate Respiratory Rate [Anterior Bilateral Throughout] Blood Pressure 100/60 82/39 82/42 O2 Sat by Pulse Oximetry 04/16/17 04/16/17 04/16/17 01:50 02:00 02:10 Temperature Pulse Rate 79 73 74 Pulse Rate [ Anterior Bilateral Throughout] Pulse Rate [ Apical] Respiratory 19 14 16 Rate Respiratory Rate [Anterior Bilateral Throughout] Blood Pressure 82/42 82/42 O2 Sat by Pulse 97 96 Oximetry 04/16/17 04/16/17 04/16/17 02:20 02:30 02:42 Temperature Pulse Rate 70 73 Pulse Rate [ Anterior Bilateral Throughout] Pulse Rate [ Apical] Respiratory 19 21 Rate Respiratory Rate [Anterior Bilateral Throughout] Blood Pressure 82/42 82/42 82/42 O2 Sat by Pulse 98 96 Oximetry 04/16/17 04/16/17 04/16/17 02:50 03:00 03:10 Temperature Pulse Rate 69 69 70 Pulse Rate [ Anterior Bilateral Throughout] Pulse Rate [ Apical] Respiratory 21 16 12 Rate Respiratory Rate [Anterior Bilateral Throughout] Blood Pressure 82/42 88/44 88/44 O2 Sat by Pulse 98 100 Oximetry 04/16/17 04/16/17 04/16/17 03:20 03:30 03:40 Temperature Pulse Rate 70 67 63 Pulse Rate [ Anterior Bilateral Throughout] Pulse Rate [ Apical] Respiratory 15 12 11 L Rate Respiratory Rate [Anterior Bilateral Throughout] Blood Pressure 88/44 93/53 93/53 O2 Sat by Pulse 57 L 100 100 Oximetry 04/16/17 04/16/17 04/16/17 03:50 04:00 04:10 Temperature Pulse Rate 66 65 74 Pulse Rate [ Anterior Bilateral Throughout] Pulse Rate [ Apical] Respiratory 19 12 13 Rate Respiratory Rate [Anterior Bilateral Throughout] Blood Pressure 93/53 97/57 97/57 O2 Sat by Pulse 100 100 100 Oximetry 04/16/17 04/16/17 04/16/17 04:20 04:30 04:38 Temperature 97.3 F L Pulse Rate 72 72 Pulse Rate [ Anterior Bilateral Throughout] Pulse Rate [ Apical] Respiratory 16 19 Rate Respiratory Rate [Anterior Bilateral Throughout] Blood Pressure 97/57 85/41 O2 Sat by Pulse 100 100 Oximetry 04/16/17 04/16/17 04/16/17 04:40 04:50 05:00 Temperature Pulse Rate 90 71 71 Pulse Rate [ Anterior Bilateral Throughout] Pulse Rate [ Apical] Respiratory 21 17 15 Rate Respiratory Rate [Anterior Bilateral Throughout] Blood Pressure 85/41 85/41 73/32 O2 Sat by Pulse Oximetry 04/16/17 04/16/17 04/16/17 05:10 05:20 05:30 Temperature Pulse Rate 92 H 79 77 Pulse Rate [ Anterior Bilateral Throughout] Pulse Rate [ Apical] Respiratory 21 20 21 Rate Respiratory Rate [Anterior Bilateral Throughout] Blood Pressure 73/32 87/51 87/51 O2 Sat by Pulse Oximetry 04/16/17 04/16/17 04/16/17 05:40 05:50 06:00 Temperature Pulse Rate 68 80 75 Pulse Rate [ Anterior Bilateral Throughout] Pulse Rate [ Apical] Respiratory 21 15 23 Rate Respiratory Rate [Anterior Bilateral Throughout] Blood Pressure 87/51 87/51 87/51 O2 Sat by Pulse Oximetry 04/16/17 04/16/17 04/16/17 06:10 06:20 06:30 Temperature Pulse Rate 67 73 62 Pulse Rate [ Anterior Bilateral Throughout] Pulse Rate [ Apical] Respiratory 21 27 H 22 Rate Respiratory Rate [Anterior Bilateral Throughout] Blood Pressure 87/51 87/51 87/51 O2 Sat by Pulse Oximetry 04/16/17 04/16/17 04/16/17 06:40 06:50 07:00 Temperature Pulse Rate 73 67 71 Pulse Rate [ Anterior Bilateral Throughout] Pulse Rate [ Apical] Respiratory 21 22 25 H Rate Respiratory Rate [Anterior Bilateral Throughout] Blood Pressure 87/51 87/51 91/49 O2 Sat by Pulse Oximetry 04/16/17 04/16/17 08:00 08:51 Temperature 97.4 F L Pulse Rate Pulse Rate [ 84 Anterior Bilateral Throughout] Pulse Rate [ Apical] Respiratory Rate Respiratory 20 Rate [Anterior Bilateral Throughout] Blood Pressure O2 Sat by Pulse Oximetry Constitutional: no acute distress, alert Eyes: non-icteric ENT: oropharynx moist Neck: supple, no lymphadenopathy, no JVD, other (no0 thyromegaly) Effort: mildly labored Ascultation: Bilateral: diminished breath sounds, rhonchi Percussion: Bilateral: not dull Cardiovascular: regular rate and rhythm, murmur noted, other (no rubs) Gastrointestinal: normoactive bowel sounds, soft, non-tender, non-distended, other (No palpable HSM) Integumentary: normal Extremities: no cyanosis, no edema, pulses normal, no ischemia or petechiae Neurologic: normal mental status, non-focal exam, pupils equal and round, motor strength normal and Psychiatric: mood appropriate, affect normal CBC and BMP: 04/17/17 03:49 04/17/17 03:49 ABG, PT/INR, D-dimer: ABG POC ABG pH 7.426 (7.35-7.45) 04/15/17 17:25 POC ABG pCO2 32.5 (35-45) L 04/15/17 17:25 POC ABG pO2 94 (80-105) 04/15/17 17:25 POC ABG HCO3 21.4 04/15/17 17:25 POC ABG Total CO2 22 04/15/17 17:25 POC ABG O2 Sat 98 04/15/17 17:25 Abnormal lab findings: Abnormal Labs 04/14/17 04/14/17 04/14/17 11:28 11:28 11:30 WBC 11.9 H RBC 3.00 L Hgb 8.3 L Hct 26.9 L MCHC 31 L RDW 21.9 H Lymph % (Auto) 11.0 L [place] % (Auto) 10.4 H [place] # 1.2 H Seg Neutrophils % 78.1 H Seg Neuts % (Manual) Lymphocytes % (Manual) Seg Neutrophils # 9.3 H Seg Neutrophils # Man POC ABG pCO2 Potassium 3.5 L Carbon Dioxide BUN 45 H Creatinine 8.0 H Glucose Lactic Acid Phosphorus Troponin T 0.180 H* C-Reactive Protein Total Protein 5.9 L Albumin 2.5 L LDL Cholesterol Direct 32 L HDL Cholesterol 36 L 04/14/17 04/14/17 04/14/17 11:51 23:02 23:55 WBC RBC Hgb Hct MCHC RDW Lymph % (Auto) [place] % (Auto) [place] # Seg Neutrophils % Seg Neuts % (Manual) Lymphocytes % (Manual) Seg Neutrophils # Seg Neutrophils # Man POC ABG pCO2 Potassium Carbon Dioxide BUN Creatinine Glucose Lactic Acid 3.10 H* 2.70 H* 2.30 H* Phosphorus Troponin T C-Reactive Protein Total Protein Albumin LDL Cholesterol Direct HDL Cholesterol 04/15/17 04/15/17 04/15/17 00:56 16:43 16:43 WBC RBC Hgb Hct MCHC RDW Lymph % (Auto) [place] % (Auto) [place] # Seg Neutrophils % Seg Neuts % (Manual) Lymphocytes % (Manual) Seg Neutrophils # Seg Neutrophils # Man POC ABG pCO2 Potassium Carbon Dioxide BUN Creatinine Glucose Lactic Acid 3.20 H* Phosphorus 5.40 H Troponin T C-Reactive Protein 21.90 H Total Protein Albumin LDL Cholesterol Direct HDL Cholesterol 04/15/17 04/16/17 04/16/17 17:25 04:04 04:04 WBC 14.4 H RBC 2.77 L Hgb 7.6 L Hct 25.2 L MCHC 30 L RDW 21.9 H Lymph % (Auto) [place] % (Auto) [place] # Seg Neutrophils % Seg Neuts % (Manual) 76.0 H Lymphocytes % (Manual) 8.0 L Seg Neutrophils # Seg Neutrophils # Man 10.9 H POC ABG pCO2 32.5 L Potassium Carbon Dioxide 18 L BUN 61 H Creatinine 9.6 H Glucose 127 H Lactic Acid Phosphorus Troponin T C-Reactive Protein Total Protein Albumin LDL Cholesterol Direct HDL Cholesterol 04/16/17 04:04 WBC RBC Hgb Hct MCHC RDW Lymph % (Auto) [place] % (Auto) [place] # Seg Neutrophils % Seg Neuts % (Manual) Lymphocytes % (Manual) Seg Neutrophils # Seg Neutrophils # Man POC ABG pCO2 Potassium Carbon Dioxide BUN Creatinine Glucose Lactic Acid 2.70 H* Phosphorus Troponin T C-Reactive Protein Total Protein Albumin LDL Cholesterol Direct HDL Cholesterol Chest x-ray: image reviewed (MARIS lung Mass) Allied health notes reviewed: nursing
[2017-04-16] MEDS: PEPCID PO SCH ×2 (10:10→22:01)
[2017-04-16] MEDS: HALFPRIN EC PO SCH (10:11)
[2017-04-16] MEDS: NON-FORMULARY PO SCH (10:11)
[2017-04-16] MEDS: VIRAMUNE PO SCH ×2 (10:11→22:02)
[2017-04-16] MEDS: LOVENOX SUB-Q SCH (10:11)
[2017-04-16] MEDS: NACL 0.9% 1000 ML 1,000 ML IV SCH (10:12)
[2017-04-16] MEDS: TIVICAY (NF) PO SCH (10:13)
[2017-04-16] MEDS ORDERED: BUMINATE-5 IV STA (10:22)
--- NOTE | 2017-04-16 10:22 | Progress Note ---
Assessment and Plan Assessment and plan: Severe Sepsis/Septic shock Cont. IV antibiotics, initial lactic acid elevated. F/U blood cultures, urinalysis, chest X ray. Cont. levophed drip and wean to maintain MAP>65. ID consultation pending. Pt. has chronic hypotension. Restarted midodrine and florinef ESRD (end stage renal disease) Nephrology following, monitor uop q shift, daily weight, dialysis as per renal team. Severe malnutrition Encourage oral intake when awake and alert only. Toxic metabolic Encephalopathy CT Head, neuro checks, IVF resuscitation, supportive care. Cont. to treat underlying causes Acute hypoxemic respiratory failure Supplemental oxygen, nebulizer, NIPPV as clinically indicated. COPD with acute exacerbation Nebulizers, oxygen, Initiate IV steroids(Solumedrol 40mg BID), Cont. IV antibiotics, supportive care h/o lung mass pt was evaluated by pulmonology in the past, family refused aggressive workup and management History of HIV/AIDS Continue current antiretroviral therapy, ID evaluation Anemia of chronic disease Procrit during dialysis, transfuse as needed DVT prophylaxis History Interval history: Pt. currently on levophed drip Hospitalist Physical - Constitutional Vitals: Temp Pulse Resp BP Pulse Ox 97.4 F L 84 20 91/49 100 04/16/17 08:00 04/16/17 08:51 04/16/17 08:51 04/16/17 07:00 04/16/17 04:30 General appearance: Present: mild distress - EENT Eyes: Present: PERRL, EOM intact ENT: hearing intact, clear oral mucosa, dentition normal - Neck Neck: Present: supple, normal ROM - Respiratory Respiratory effort: normal Respiratory: bilateral: diminished, rhonchi - Cardiovascular Rhythm: regular Heart Sounds: Present: S1 & S2. Absent: gallop, rub - Extremities Extremities: no ischemia, No edema, Full ROM - Abdominal General gastrointestinal: soft, non-tender, non-distended, normal bowel sounds - Integumentary Integumentary: Present: clear, warm, dry - Neurologic Neurologic: CNII-XII intact, moves all extremities Results - Labs CBC & Chem 7: 04/16/17 04:04 04/16/17 04:04 Labs: Laboratory Last Values WBC 14.4 K/mm3 (4.5-11.0) H 04/16/17 04:04 RBC 2.77 M/mm3 (3.65-5.03) L 04/16/17 04:04 Hgb 7.6 gm/dl (11.8-15.2) L 04/16/17 04:04 Hct 25.2 % (35.5-45.6) L 04/16/17 04:04 MCV 91 fl (84-94) 04/16/17 04:04 MCH 28 pg (28-32) 04/16/17 04:04 MCHC 30 % (32-34) L 04/16/17 04:04 RDW 21.9 % (13.2-15.2) H 04/16/17 04:04 Plt Count 333 K/mm3 (140-440) 04/16/17 04:04 Lymph % (Auto) 11.0 % (13.4-35.0) L 04/14/17 11:28 [place] % (Auto) 10.4 % (0.0-7.3) H 04/14/17 11:28 Eos % (Auto) 0.2 % (0.0-4.3) 04/14/17 11:28 Baso % (Auto) 0.3 % (0.0-1.8) 04/14/17 11:28 Lymph # 1.3 K/mm3 (1.2-5.4) 04/14/17 11:28 [place] # 1.2 K/mm3 (0.0-0.8) H 04/14/17 11:28 Eos # 0.0 K/mm3 (0.0-0.4) 04/14/17 11:28 Baso # 0.0 K/mm3 (0.0-0.1) 04/14/17 11:28 Add Manual Diff Complete 04/16/17 04:04 Total Counted 100 04/16/17 04:04 Seg Neutrophils % [employer] 04/16/17 04:04 Seg Neuts % (Manual) 76.0 % (40.0-70.0) H 04/16/17 04:04 Band Neutrophils % 15.0 % 04/16/17 04:04 Lymphocytes % (Manual) 8.0 % (13.4-35.0) L 04/16/17 04:04 Reactive Lymphs % (Man) 0 % 04/16/17 04:04 Monocytes % (Manual) 1.0 % (0.0-7.3) 04/16/17 04:04 Eosinophils % (Manual) 0 % (0.0-4.3) 04/16/17 04:04 Basophils % (Manual) 0 % (0.0-1.8) 04/16/17 04:04 Metamyelocytes % 0 % 04/16/17 04:04 Myelocytes % 0 % 04/16/17 04:04 Promyelocytes % 0 % 04/16/17 04:04 Blast Cells % 0 % 04/16/17 04:04 Nucleated RBC % Not Reportable 04/16/17 04:04 Seg Neutrophils # 9.3 K/mm3 (1.8-7.7) H 04/14/17 11:28 Seg Neutrophils # Man 10.9 K/mm3 (1.8-7.7) H 04/16/17 04:04 Band Neutrophils # 2.2 K/mm3 04/16/17 04:04 Lymphocytes # (Manual) 1.2 K/mm3 (1.2-5.4) 04/16/17 04:04 Abs React Lymphs (Man) 0.0 K/mm3 04/16/17 04:04 Monocytes # (Manual) 0.1 K/mm3 (0.0-0.8) 04/16/17 04:04 Eosinophils # (Manual) 0.0 K/mm3 (0.0-0.4) 04/16/17 04:04 Basophils # (Manual) 0.0 K/mm3 (0.0-0.1) 04/16/17 04:04 Metamyelocytes # 0.0 K/mm3 04/16/17 04:04 Myelocytes # 0.0 K/mm3 04/16/17 04:04 Promyelocytes # 0.0 K/mm3 04/16/17 04:04 Blast Cells # 0.0 K/mm3 04/16/17 04:04 WBC Morphology Not Reportable 04/16/17 04:04 Hypersegmented Neuts Not Reportable 04/16/17 04:04 Hyposegmented Neuts Not Reportable 04/16/17 04:04 Hypogranular Neuts Not Reportable 04/16/17 04:04 Smudge Cells Not Reportable 04/16/17 04:04 Toxic Granulation Not Reportable 04/16/17 04:04 Toxic Vacuolation Not Reportable 04/16/17 04:04 Dohle Bodies Not Reportable 04/16/17 04:04 Pelger-Huet Anomaly Not Reportable 04/16/17 04:04 Yusuf Rods Not Reportable 04/16/17 04:04 Platelet Estimate Consistent w auto 04/16/17 04:04 Clumped Platelets Not Reportable 04/16/17 04:04 Plt Clumps, EDTA Not Reportable 04/16/17 04:04 Large Platelets Not Reportable 04/16/17 04:04 Giant Platelets Not Reportable 04/16/17 04:04 Platelet Satelliting Not Reportable 04/16/17 04:04 Plt Morphology Comment Not Reportable 04/16/17 04:04 RBC Morphology Not Reportable 04/16/17 04:04 Dimorphic RBCs Not Reportable 04/16/17 04:04 Polychromasia 1+ 04/16/17 04:04 Hypochromasia Not Reportable 04/16/17 04:04 Poikilocytosis Not Reportable 04/16/17 04:04 Anisocytosis 1+ 04/16/17 04:04 Microcytosis Not Reportable 04/16/17 04:04 Macrocytosis Not Reportable 04/16/17 04:04 Spherocytes Not Reportable 04/16/17 04:04 Pappenheimer Bodies Not Reportable 04/16/17 04:04 Sickle Cells Not Reportable 04/16/17 04:04 Target Cells Not Reportable 04/16/17 04:04 Tear Drop Cells Not Reportable 04/16/17 04:04 Ovalocytes Not Reportable 04/16/17 04:04 Helmet Cells Not Reportable 04/16/17 04:04 [place] Bodies Not Reportable 04/16/17 04:04 [place] Rings Not Reportable 04/16/17 04:04 Baljit Cells Not Reportable 04/16/17 04:04 Bite Cells Not Reportable 04/16/17 04:04 Crenated Cell Not Reportable 04/16/17 04:04 Elliptocytes 1+ 04/16/17 04:04 Acanthocytes (Spur) Not Reportable 04/16/17 04:04 Rouleaux Not Reportable 04/16/17 04:04 Hemoglobin C Crystals Not Reportable 04/16/17 04:04 Schistocytes Not Reportable 04/16/17 04:04 Malaria parasites Not Reportable 04/16/17 04:04 [place] Bodies Not Reportable 04/16/17 04:04 Hem Pathologist Commnt No 04/16/17 04:04 POC ABG pH 7.426 (7.35-7.45) 04/15/17 17:25 POC ABG pCO2 32.5 (35-45) L 04/15/17 17:25 POC ABG pO2 94 (80-105) 04/15/17 17:25 POC ABG HCO3 21.4 04/15/17 17:25 POC ABG Total CO2 22 04/15/17 17:25 POC ABG O2 Sat 98 04/15/17 17:25 POC ABG Base Excess -3 04/15/17 17:25 FiO2 50 % 04/15/17 17:25 Sodium 143 mmol/L (137-145) 04/16/17 04:04 Potassium 4.3 mmol/L (3.6-5.0) D 04/16/17 04:04 Chloride 100.6 mmol/L (98-107) 04/16/17 04:04 Carbon Dioxide 18 mmol/L (22-30) L 04/16/17 04:04 Anion Gap 29 mmol/L 04/16/17 04:04 BUN 61 mg/dL (9-20) H 04/16/17 04:04 Creatinine 9.6 mg/dL (0.8-1.5) H 04/16/17 04:04 Estimated GFR 6 ml/min 04/16/17 04:04 BUN/Creatinine Ratio 6 % 04/16/17 04:04 Glucose 127 mg/dL (75-100) H 04/16/17 04:04 Lactic Acid 2.70 mmol/L (0.7-2.0) H* 04/16/17 04:04 Calcium 8.6 mg/dL (8.4-10.2) 04/16/17 04:04 Phosphorus 5.40 mg/dL (2.5-4.5) H 04/15/17 16:43 Magnesium 1.90 mg/dL (1.7-2.3) 04/15/17 16:43 Total Bilirubin 0.30 mg/dL (0.1-1.2) 04/14/17 11:30 AST 36 units/L (5-40) 04/14/17 11:30 ALT 24 units/L (7-56) 04/14/17 11:30 Alkaline Phosphatase 79 units/L (35-129) 04/14/17 11:30 Troponin T 0.180 ng/mL (0.00-0.029) H* 04/14/17 11:28 C-Reactive Protein 21.90 mg/dL (0.00-1.30) H 04/15/17 16:43 Total Protein 5.9 g/dL (6.3-8.2) L 04/14/17 11:30 Albumin 2.5 g/dL (3.9-5) L 04/14/17 11:30 Albumin/Globulin Ratio 0.7 % 04/14/17 11:30 Triglycerides 134 mg/dL (2-149) 04/14/17 11:28 Cholesterol 94 mg/dL (50-199) 04/14/17 11:28 LDL Cholesterol Direct 32 mg/dL (50-130) L 04/14/17 11:28 HDL Cholesterol 36 mg/dL (40-59) L 04/14/17 11:28 Cholesterol/HDL Ratio 2.61 % 04/14/17 11:28
--- NOTE | 2017-04-16 11:52 | Progress Note ---
Assessment and Plan Impression * End-stage renal disease on maintenance hemodialysis * Lung mass * HIV disease * Hypotension * Dementia * Coronary artery disease * Anemia secondary to chronic disease Recommendations * Patient is currently hypotensive and electrolytes and volume status does not require dialysis today * Chest x-ray shows an enlarging lung mass. Suspect possible malignant process * Consider palliative care * Avoid nephrotoxins * No IV, BP of venipuncture and access arm * Adjust diet and meds for ESRD state * Spoke with patient's son Hong telephone. Recommended stopping dialysis and hospice care. He will be discussing with his other family members before making a decision Subjective Date of service: 04/16/17 Interval history: Patient was transferred to ICU because of hypotension. He is currently on Levophed drip as well as intravenous albumin. He is awake and alert. Appears comfortable. Objective - Vital Signs Vital signs: Vital Signs - 12hr 04/16/17 04/16/17 04/16/17 00:09 00:10 01:00 Temperature Pulse Rate Pulse Rate [ Anterior Bilateral Throughout] Respiratory Rate Respiratory Rate [Anterior Bilateral Throughout] Blood Pressure 115/48 100/60 82/39 O2 Sat by Pulse Oximetry 04/16/17 04/16/17 04/16/17 01:45 01:50 02:00 Temperature Pulse Rate 79 73 Pulse Rate [ Anterior Bilateral Throughout] Respiratory 19 14 Rate Respiratory Rate [Anterior Bilateral Throughout] Blood Pressure 82/42 82/42 82/42 O2 Sat by Pulse 97 96 Oximetry 04/16/17 04/16/17 04/16/17 02:10 02:20 02:30 Temperature Pulse Rate 74 70 73 Pulse Rate [ Anterior Bilateral Throughout] Respiratory 16 19 21 Rate Respiratory Rate [Anterior Bilateral Throughout] Blood Pressure 82/42 82/42 O2 Sat by Pulse 98 Oximetry 04/16/17 04/16/17 04/16/17 02:42 02:50 03:00 Temperature Pulse Rate 69 69 Pulse Rate [ Anterior Bilateral Throughout] Respiratory 21 16 Rate Respiratory Rate [Anterior Bilateral Throughout] Blood Pressure 82/42 82/42 88/44 O2 Sat by Pulse 96 98 Oximetry 04/16/17 04/16/17 04/16/17 03:10 03:20 03:30 Temperature Pulse Rate 70 70 67 Pulse Rate [ Anterior Bilateral Throughout] Respiratory 12 15 12 Rate Respiratory Rate [Anterior Bilateral Throughout] Blood Pressure 88/44 88/44 93/53 O2 Sat by Pulse 100 57 L 100 Oximetry 04/16/17 04/16/17 04/16/17 03:40 03:50 04:00 Temperature Pulse Rate 63 66 65 Pulse Rate [ Anterior Bilateral Throughout] Respiratory 11 L 19 12 Rate Respiratory Rate [Anterior Bilateral Throughout] Blood Pressure 93/53 93/53 97/57 O2 Sat by Pulse 100 100 100 Oximetry 04/16/17 04/16/17 04/16/17 04:10 04:20 04:30 Temperature Pulse Rate 74 72 72 Pulse Rate [ Anterior Bilateral Throughout] Respiratory 13 16 19 Rate Respiratory Rate [Anterior Bilateral Throughout] Blood Pressure 97/57 97/57 85/41 O2 Sat by Pulse 100 100 100 Oximetry 04/16/17 04/16/17 04/16/17 04:38 04:40 04:50 Temperature 97.3 F L Pulse Rate 90 71 Pulse Rate [ Anterior Bilateral Throughout] Respiratory 21 17 Rate Respiratory Rate [Anterior Bilateral Throughout] Blood Pressure 85/41 85/41 O2 Sat by Pulse Oximetry 04/16/17 04/16/17 04/16/17 05:00 05:10 05:20 Temperature Pulse Rate 71 92 H 79 Pulse Rate [ Anterior Bilateral Throughout] Respiratory 15 21 20 Rate Respiratory Rate [Anterior Bilateral Throughout] Blood Pressure 73/32 73/32 87/51 O2 Sat by Pulse Oximetry 04/16/17 04/16/17 04/16/17 05:30 05:40 05:50 Temperature Pulse Rate 77 68 80 Pulse Rate [ Anterior Bilateral Throughout] Respiratory 21 21 15 Rate Respiratory Rate [Anterior Bilateral Throughout] Blood Pressure 87/51 87/51 87/51 O2 Sat by Pulse Oximetry 04/16/17 04/16/17 04/16/17 06:00 06:10 06:20 Temperature Pulse Rate 75 67 73 Pulse Rate [ Anterior Bilateral Throughout] Respiratory 23 21 27 H Rate Respiratory Rate [Anterior Bilateral Throughout] Blood Pressure 87/51 87/51 87/51 O2 Sat by Pulse Oximetry 04/16/17 04/16/17 04/16/17 06:30 06:40 06:50 Temperature Pulse Rate 62 73 67 Pulse Rate [ Anterior Bilateral Throughout] Respiratory 22 21 22 Rate Respiratory Rate [Anterior Bilateral Throughout] Blood Pressure 87/51 87/51 87/51 O2 Sat by Pulse Oximetry 04/16/17 04/16/17 04/16/17 07:00 08:00 08:51 Temperature 97.4 F L Pulse Rate 71 Pulse Rate [ 84 Anterior Bilateral Throughout] Respiratory 25 H Rate Respiratory 20 Rate [Anterior Bilateral Throughout] Blood Pressure 91/49 O2 Sat by Pulse 95 Oximetry 04/16/17 09:02 Temperature Pulse Rate Pulse Rate [ 81 Anterior Bilateral Throughout] Respiratory Rate Respiratory 20 Rate [Anterior Bilateral Throughout] Blood Pressure O2 Sat by Pulse Oximetry - General Appearance General appearance: chronically ill, frail, other (pleasant -Mauritian male) EENT: PERRL, mucous membranes moist Neck: no JVD, no thyromegaly, no carotid bruit, supple Respiratory: Present: Clear to Ascultation Cardiology: regular, normal heart rate, S1S2, no murmurs Gastrointestinal: normoactive bowel sounds, distended Integumentary: other (no peripheral edema. AV fistula in his left upper arm. Good bruit and thrill) - Lab 04/16/17 04:04 04/16/17 04:04 Most recent lab results Calcium 8.6 mg/dL (8.4-10.2) 04/16/17 04:04 Phosphorus 5.40 mg/dL (2.5-4.5) H 04/15/17 16:43 Magnesium 1.90 mg/dL (1.7-2.3) 04/15/17 16:43
[2017-04-16] MEDS: LEVAQUIN 500MG/100ML 500 MG/100 ML BAG IV SCH (11:57)
--- NOTE | 2017-04-16 14:56 | Consultation ---
History of Present Illness - Reason for Consult Consult date: 04/16/17 sepsis/HIV Requesting physician: SUSI BUTLER - History of Present Illness 82 years old male with history of DE, COPD, Dementia, GERD, ESRD on HD (M,W,F), Lung Mass (patient and family have refused w/u and biopsy multiple time in the past), chronic hypotension and HIV infection (unknown details about his HIV except for his ART-lamivudine, nevirapime, dolutegravir) ; admitted on 04/14/17 due to AMS with confusion and falls. Patient is confused but reports worsening cough and SOB. Reports chest congestion. Denies any sick contacts. In the ED, initial temperature was 100.2, heart rate 95, respiration 26, O2 sat 96, blood pressure 72/44. Initial white count 11.9. Hemoglobin 8.3. Platelets 351. Creatinine 8. Lactic acid 3.1. CT of the head was unremarkable. Chest x-ray show worsening size of left upper lobe mass 10 x 11 cm. Microbiology: Blood cultures: 04/14 ngtd Urine cultures: Respiratory cultures: Current Antimicrobials: Levaquin 04/16 Previous Antimicrobials: Past History Past Medical History: acute DE, arthritis, COPD, ESRD, heart failure, HIV/AIDS Past Surgical History: Other (LUE AVF, Chest tube placement. ) Social history: single, lives with family. denies: smoking, alcohol abuse, prescription drug abuse Family history: hypertension Medications and Allergies Allergies Allergy/AdvReac Type Severity Reaction Status Date / Time No Known Allergies Allergy Verified 03/08/17 10:52 Home Medications Medication Instructions Recorded Confirmed Last Taken Type lamiVUDine [Epivir Hbv] 150 mg PO DAILY 04/14/14 04/14/17 03/07/17 12:00 History Temazepam [Restoril] 30 mg PO QHS PRN 09/12/15 04/14/17 08/05/16 History Nevirapine [Viramune] 200 mg PO BID 08/05/16 04/14/17 03/08/17 08:00 History Dolutegravir Sodium [Tivicay] 150 mg PO DAILY 12/19/16 04/14/17 03/07/17 12:00 History ALBUTEROL NEB's [Proventil 0.083% 2.5 mg IH Q4HRT PRN #30 day 03/13/17 04/14/17 Unknown Rx NEBS] Acetaminophen [Acetaminophen TAB] 650 mg PO Q4H PRN #30 tablet 03/13/17 Unknown Rx Arformoterol Nebu [Brovana Nebu] 15 mcg IH Q12HRT #30 day 03/13/17 04/14/17 Unknown Rx Aspirin [Adult Low Dose Aspirin EC] 81 mg PO DAILY #30 03/13/17 04/14/17 08:00 Rx Budesonide [Pulmicort Respules] 0.5 mg IH Q12HRT #30 day 03/13/17 04/14/17 Unknown Rx HYDROcodone/HOMATROP 5-1.5 5 ml PO Q4H PRN #30 day 03/13/17 04/14/17 Unknown Rx [HYDROcodone-Homatropin 5-1.5 mg per 5 ML] Midodrine [Proamatine] 10 mg PO Q8H #30 day 03/13/17 04/14/17 Unknown Rx Fludrocortisone [Florinef] 0.1 mg PO QDAY #30 tablet 03/22/17 04/14/17 Unknown Rx Prednisone [predniSONE 5 mg (6-Day 5 mg PO .TAPER #1 tab.ds.pk 03/22/17 Unknown Rx Pack, 21 Tabs)] Active Meds: Active Medications Acetaminophen (Tylenol) 650 mg PO Q4H PRN PRN Reason: Pain MILD(1-3)/Fever >100.5/BELTRAN Albuterol (Proventil) 2.5 mg IH Q4HRT PRN PRN Reason: Shortness Of Breath Last Admin: 04/15/17 15:36 Dose: 2.5 mg Arformoterol Tartrate (Brovana Nebu) 15 mcg IH Q12HRT [facility] Last Admin: 04/16/17 08:51 Dose: 15 mcg Aspirin (Halfprin Ec) 81 mg PO DAILY [facility] Last Admin: 04/16/17 10:11 Dose: 81 mg Budesonide (Pulmicort) 0.5 mg IH Q12HRT [facility] Last Admin: 04/16/17 08:51 Dose: 0.5 mg Enoxaparin Sodium (Lovenox) 30 mg SUB-Q QDAY [facility] Last Admin: 04/16/17 10:11 Dose: 30 mg Famotidine (Pepcid) 20 mg PO BID [facility] Last Admin: 04/16/17 10:10 Dose: 20 mg Hydrocodone Bit/Homatropine Methylb (Hydromet) 5 ml PO Q6H PRN PRN Reason: Cough Last Admin: 04/16/17 02:25 Dose: 5 ml Hydrocortisone Sodium Succinate (Solu-Cortef) 100 mg IV Q8H [facility] Last Admin: 04/16/17 10:17 Dose: 100 mg Piperacillin Sod/Tazobactam Sod (Zosyn/Ns 2.25 Gm/50ml) 2.25 gm in 50 mls @ 100 mls/hr IV Q8HR [facility] Last Admin: 04/16/17 05:06 Dose: 100 mls/hr Norepinephrine (Levophed Drip 4 Mg/Ns 250 Ml) 4 mg in 250 mls @ 7.5 mls/hr IV TITR [facility]; 2 MCG/MIN PRN Reason: Protocol Last Admin: 04/16/17 08:42 Dose: 2 mcg/min, 7.5 mls/hr Levofloxacin/Dextrose (Levaquin 500mg/100ml) 500 mg in 100 mls @ 100 mls/hr IV Q48H [facility] PRN Reason: Protocol Last Admin: 04/16/17 11:57 Dose: 100 mls/hr Sodium Chloride (Nacl 0.9% 1000 Ml) 1,000 mls @ 75 mls/hr IV DIRECT [facility] Last Admin: 04/16/17 10:12 Dose: 75 mls/hr Midodrine (Proamatine) 10 mg PO Q8H [facility] Last Admin: 04/16/17 10:17 Dose: 10 mg Miscellaneous Medication (Non-Formulary) 0.5 each PO QDAY [facility] Last Admin: 04/16/17 10:11 Dose: 0.5 each Nevirapine (Viramune) 200 mg PO BID [facility] Last Admin: 04/16/17 10:11 Dose: 200 mg Ondansetron HCl (Zofran) 4 mg IV Q8H PRN PRN Reason: N/V unrelieved by Thais Vancomycin HCl (Vancomycin Pharmacy To Dose) 1 each IV PKCONSULT [facility] PRN Reason: Protocol Review of Systems ROS unobtainable: due to mental status All systems: negative Physical Examination - Physical Exam Narrative exam: General appearance: Alert in NAD, conversant Eyes: anicteric sclerae, moist conjunctivae, +sima iris lesions; no lid-lag; PERRLA HENT: Atraumatic; oropharynx partially edentulous Neck: Trachea midline; supple, no thyromegaly or lymphadenopathy Lungs: distant BS CV: RRR Abdomen: tense distended TTP in right flank Extremities: No peripheral edema or extremity lymphadenopathy Skin: Normal temperature, turgor and texture; no rash, ulcers or subcutaneous nodules Psych: Appropriate affect, alert and oriented to person, place and time. Neuro: alert and oriented x 3. Moving all extermities Lines: No CVL / PICC - Constitutional Vitals: Vital Signs Temp Pulse Resp BP Pulse Ox 97.9 F 81 20 91/49 95 04/16/17 12:00 04/16/17 09:02 04/16/17 09:02 04/16/17 07:00 04/16/17 08:51 Temperature -Last 24 Hours Temperature 97.9 F Temperature 97.4 F Temperature 97.3 F Temperature 97.7 F Results - Labs CBC & Chem 7: 04/16/17 04:04 04/16/17 04:04 Labs: Abnormal lab results 04/15/17 04/15/17 04/15/17 Range/Units 16:43 16:43 17:25 WBC (4.5-11.0) K/mm3 RBC (3.65-5.03) M/mm3 Hgb (11.8-15.2) gm/dl Hct (35.5-45.6) % MCHC (32-34) % RDW (13.2-15.2) % Seg Neuts % (Manual) (40.0-70.0) % Lymphocytes % (Manual) (13.4-35.0) % Seg Neutrophils # Man (1.8-7.7) K/mm3 POC ABG pCO2 32.5 L (35-45) Carbon Dioxide (22-30) mmol/L BUN (9-20) mg/dL Creatinine (0.8-1.5) mg/dL Glucose (75-100) mg/dL Lactic Acid (0.7-2.0) mmol/L Phosphorus 5.40 H (2.5-4.5) mg/dL C-Reactive Protein 21.90 H (0.00-1.30) mg/dL 04/16/17 04/16/17 04/16/17 Range/Units 04:04 04:04 04:04 WBC 14.4 H (4.5-11.0) K/mm3 RBC 2.77 L (3.65-5.03) M/mm3 Hgb 7.6 L (11.8-15.2) gm/dl Hct 25.2 L (35.5-45.6) % MCHC 30 L (32-34) % RDW 21.9 H (13.2-15.2) % Seg Neuts % (Manual) 76.0 H (40.0-70.0) % Lymphocytes % (Manual) 8.0 L (13.4-35.0) % Seg Neutrophils # Man 10.9 H (1.8-7.7) K/mm3 POC ABG pCO2 (35-45) Carbon Dioxide 18 L (22-30) mmol/L BUN 61 H (9-20) mg/dL Creatinine 9.6 H (0.8-1.5) mg/dL Glucose 127 H (75-100) mg/dL Lactic Acid 2.70 H* (0.7-2.0) mmol/L Phosphorus (2.5-4.5) mg/dL C-Reactive Protein (0.00-1.30) mg/dL Assessment and Plan Assessment: 1) Sepsis: Present on admission, manifested by fever, tachycardia, hypotension ( chronic hypotension), mild leukocytosis, increased lactate. Etiology most likely ?post-obstructive pneumonia +/- extensive lung malignancy. 2) Large lung mass: patient and family have refused w/u and biopsy multiple time in the past -Chest x-ray show worsening size of left upper lobe mass 10 x 11 cm. 3) COPD with exacerbation: 4) ESRD on HD (M,W,F) 5) HIV infection ((unknown details about his HIV except for his ART-lamivudine, nevirapime, dolutegravir) 6) Encephalopathy on top of dementia- better Plan: -follow-up blood cultures -obtain C-reactive protein (CRP) -continue levaquin and add flagyl to cover post-obstructive pneumonia-total duration 7 days -agree with hospice care, no further aggressive w/u needed at this time Thank you for your consultation, will follow up with you. Romi Johnson MD Infectious Diseases Specialist [facility] M [phone] O [phone]
[2017-04-16] MEDS ORDERED: XYLOCAINE 1% 20 mL ONE (15:03)
--- NOTE | 2017-04-16 16:13 | Procedure Note ---
Date of procedure: 04/16/17 Pre-op diagnosis: Sepsis Post-op diagnosis: same Procedure: RUE Basilic Vein IV placement The right upper extremity was examined with ultrasound. The patient was prepped. Local anesthetic was administered. Under ultrasound guidance the right basilic vein was accessed with a 21 gauge needle. This was exchanged over a wire for a 4fr exchange dilator sheath. The wire was removed. The sheath was aspirated, flushed, and connected to IV tubing. A secure dressing was placed. Anesthesia: local Surgeon: BETTY ARMANDO Estimated blood loss: none Pathology: none Condition: critical Disposition: ICU
[2017-04-16] MEDS: FLAGYL 500 MG/100 ML 500 MG/100 ML BAG IV SCH (17:51)
[2017-04-16] MEDS: TYLENOL PO PRN (22:01)
[2017-04-17] MEDS: FLAGYL 500 MG/100 ML 500 MG/100 ML BAG IV SCH ×3 (01:08→15:56)
[2017-04-17] MEDS: PROAMATINE PO SCH ×4 (01:58→20:23)
[2017-04-17 05:03] LABS: Basophils % (Auto) 0.1 % (0.0-1.8); Eosinophils # (Auto) 0.2 K/mm3 (0.0-0.4); Eosinophils % (Auto) 1.2 % (0.0-4.3); Lymphocytes # (Auto) 0.7 K/mm3 (1.2-5.4); Lymphocytes % (Auto) 4.9 % (13.4-35.0); Mean Corpuscular HGB Conc 30 % (32-34); Mean Corpuscular Hemoglobin 27 pg (28-32); Mean Corpuscular Volume 89 fl (84-94); Monocytes # (Auto) 0.6 K/mm3 (0.0-0.8); Monocytes % (Auto) 4.6 % (0.0-7.3); Red Blood Count 4.01 M/mm3 (3.65-5.03)
[2017-04-17 05:13] LABS: Hematocrit 35.7 % (35.5-45.6); Platelet Count 281 K/mm3 (140-440); Red Cell Distribution Width 21.6 % (13.2-15.2)
[2017-04-17 05:19] LABS: Hemoglobin 10.8 gm/dl (11.8-15.2)
[2017-04-17] MEDS: ZOSYN/NS 2.25 GM/50ML 2.25 GM/50 ML BAG IV SCH (05:30)
[2017-04-17] MEDS: NACL 0.9% 1000 ML 1,000 ML IV SCH ×2 (05:31→19:13)
[2017-04-17 05:42] LABS: Calcium 7.9 mg/dL (8.4-10.2)
[2017-04-17] MEDS: TYLENOL PO PRN (06:06)
[2017-04-17] MEDS: BROVANA NEBU IH SCH ×2 (07:39→19:32)
[2017-04-17] MEDS: PULMICORT IH SCH ×2 (07:39→19:32)
[2017-04-17] MEDS: LOVENOX SUB-Q SCH (09:45)
[2017-04-17] MEDS: PEPCID PO SCH (09:45)
[2017-04-17] MEDS: TIVICAY (NF) PO SCH (09:45)
[2017-04-17] MEDS: HALFPRIN EC PO SCH (09:45)
[2017-04-17] MEDS: NON-FORMULARY PO SCH (09:47)
[2017-04-17] MEDS: VIRAMUNE PO SCH ×2 (09:47→23:32)
--- NOTE | 2017-04-17 09:50 | Progress Note ---
Subjective Interval history: Patient was seen today for follow-up on multiple renal related issues, he is currently alert awake Events of this hospitalization noted, patient has been transferred to ICU Chronically hypotensive currently on sterile as well as midodrine Vitals labs intake output medications were reviewed Social history: Reviewed Allergies: Reviewed Family history: Reviewed Physical examination HEENT: Oral mucosa moist no pallor or icterus Neck: Supple no JVD Chest: Clear to auscultation anteriorly CVS: Regular rate and rhythm S1 and S2 heard Abdomen: Soft nontender no suprapubic masses no organomegaly appreciable Extremity: Dry skin less than 1+ peripheral edema Musculoskeletal: No joint effusion noted in knees and ankle Neurological: Alert awake Dermatology: No petechial rashes Psychiatry: No evidence of any agitation and aggression noted Assessment and plan End-stage renal disease patient has been on hemodialysis Monday and Monday, will attempt to dialyze as tolerated with low blood flow in am no emergent indications for IT TRAINER today , to follow , electrolytes ok high lactate due to hypotension Anemia in end-stage renal disease: To monitor and follow Secondary hyperparathyroidism will check phosphorus and PTH level periodically History of underlying dementia, HIV disease, coronary artery disease Enlarging lung mass possible malignancy needs to be ruled out Advanced age many comorbidities poor quality of life this needs to be addressed and goals of care needs to be established here Hypotension chronic ,patient transferred to ICU needs close monitoring currently on vasopressor as well as IV albumin. Patient is also on hydrocortisone as well as ProAmatine for hypotension, is going to be high risk for cardiovascular collapse hemodynamic problems during hemodialysis Will need to discuss with family if needed Patient noted to be febrile upon admission confused with elevated lactic acid level of 3.1, needs to rule out for any bacteremia sepsis Due to advanced age and many comorbidities his prognosis is poor We'll continue to follow and make recommendation from renal standpoint Objective - Vital Signs Vital signs: Vital Signs - 12hr 04/16/17 04/16/17 04/16/17 22:00 22:01 23:00 Temperature Pulse Rate 72 79 Pulse Rate [ Anterior Bilateral Throughout] Pulse Rate [ Apical] Respiratory 24 18 19 Rate Respiratory Rate [Anterior Bilateral Throughout] Respiratory 18 Rate [ Generalized] Blood Pressure 112/50 107/56 O2 Sat by Pulse 100 100 Oximetry 04/17/17 04/17/17 04/17/17 00:00 00:01 01:00 Temperature 98.7 F Pulse Rate 83 74 Pulse Rate [ Anterior Bilateral Throughout] Pulse Rate [ 83 Apical] Respiratory 16 22 21 Rate Respiratory Rate [Anterior Bilateral Throughout] Respiratory 18 Rate [ Generalized] Blood Pressure 108/53 121/57 O2 Sat by Pulse 100 100 Oximetry 04/17/17 04/17/17 04/17/17 01:37 01:38 02:00 Temperature Pulse Rate 78 82 Pulse Rate [ Anterior Bilateral Throughout] Pulse Rate [ Apical] Respiratory 16 17 Rate Respiratory Rate [Anterior Bilateral Throughout] Respiratory Rate [ Generalized] Blood Pressure 112/64 108/76 O2 Sat by Pulse 100 100 100 Oximetry 04/17/17 04/17/17 04/17/17 03:00 04:00 05:00 Temperature 98.1 F Pulse Rate 78 86 70 Pulse Rate [ Anterior Bilateral Throughout] Pulse Rate [ 83 Apical] Respiratory 20 16 19 Rate Respiratory Rate [Anterior Bilateral Throughout] Respiratory Rate [ Generalized] Blood Pressure 99/62 109/67 111/58 O2 Sat by Pulse 100 100 100 Oximetry 04/17/17 04/17/17 04/17/17 06:00 06:06 07:00 Temperature Pulse Rate 82 71 Pulse Rate [ Anterior Bilateral Throughout] Pulse Rate [ Apical] Respiratory 13 17 21 Rate Respiratory Rate [Anterior Bilateral Throughout] Respiratory Rate [ Generalized] Blood Pressure 108/54 106/58 O2 Sat by Pulse 100 100 Oximetry 04/17/17 07:40 Temperature Pulse Rate 69 Pulse Rate [ 70 Anterior Bilateral Throughout] Pulse Rate [ Apical] Respiratory 22 Rate Respiratory 19 Rate [Anterior Bilateral Throughout] Respiratory Rate [ Generalized] Blood Pressure 106/55 O2 Sat by Pulse 100 Oximetry - Lab 04/17/17 03:49 04/17/17 03:49 Most recent lab results Calcium 7.9 mg/dL (8.4-10.2) L 04/17/17 03:49 Phosphorus 5.40 mg/dL (2.5-4.5) H 04/15/17 16:43 Magnesium 1.90 mg/dL (1.7-2.3) 04/15/17 16:43
--- NOTE | 2017-04-17 10:13 | Progress Note ---
Assessment and Plan Assessment and plan: Severe Sepsis/Septic shock Cont. IV antibiotics, initial lactic acid elevated. F/U blood cultures, urinalysis, chest X ray. ?post-obstructive pneumonia. Cont. off levophed drip. ID consultation pending. Pt. has chronic hypotension. Cont. midodrine and florinef. Transfer to floor ESRD (end stage renal disease) Nephrology following, monitor uop q shift, daily weight, dialysis as per renal team. Severe malnutrition Encourage oral intake when awake and alert only. Toxic metabolic Encephalopathy CT Head, neuro checks, IVF resuscitation, supportive care. Cont. to treat underlying causes Acute hypoxemic respiratory failure Supplemental oxygen, nebulizer, NIPPV as clinically indicated. COPD with acute exacerbation Nebulizers, oxygen, Cont IV steroids(Solumedrol 40mg BID), Cont. IV antibiotics , supportive care h/o lung mass pt was evaluated by pulmonology in the past, family refused aggressive workup and management History of HIV/AIDS Continue current antiretroviral therapy, ID evaluation Anemia of chronic disease Procrit during dialysis, transfuse as needed DVT prophylaxis History Interval history: Pt. currently off levophed drip x 24 hours. Pt. with Bipap last evening Hospitalist Physical - Constitutional Vitals: Temp Pulse Resp BP Pulse Ox 98.1 F 77 18 106/55 97 04/17/17 04:00 04/17/17 09:51 04/17/17 09:51 04/17/17 07:40 04/17/17 09:51 General appearance: Present: mild distress - EENT Eyes: Present: PERRL, EOM intact ENT: hearing intact, clear oral mucosa, dentition normal - Neck Neck: Present: supple, normal ROM - Respiratory Respiratory effort: normal Respiratory: bilateral: CTA - Cardiovascular Rhythm: regular Heart Sounds: Present: S1 & S2. Absent: gallop, rub - Extremities Extremities: no ischemia, No edema, Full ROM - Abdominal General gastrointestinal: soft, non-tender, non-distended, normal bowel sounds - Integumentary Integumentary: Present: clear, warm, dry - Neurologic Neurologic: CNII-XII intact, moves all extremities Results - Labs CBC & Chem 7: 04/17/17 03:49 04/17/17 03:49 Labs: Laboratory Last Values WBC 13.7 K/mm3 (4.5-11.0) H 04/17/17 03:49 RBC 4.01 M/mm3 (3.65-5.03) 04/17/17 03:49 Hgb 10.8 gm/dl (11.8-15.2) L D 04/17/17 03:49 Hct 35.7 % (35.5-45.6) D 04/17/17 03:49 MCV 89 fl (84-94) 04/17/17 03:49 MCH 27 pg (28-32) L 04/17/17 03:49 MCHC 30 % (32-34) L 04/17/17 03:49 RDW 21.6 % (13.2-15.2) H 04/17/17 03:49 Plt Count 281 K/mm3 (140-440) 04/17/17 03:49 Lymph % (Auto) 4.9 % (13.4-35.0) L 04/17/17 03:49 [place] % (Auto) 4.6 % (0.0-7.3) 04/17/17 03:49 Eos % (Auto) 1.2 % (0.0-4.3) 04/17/17 03:49 Baso % (Auto) 0.1 % (0.0-1.8) 04/17/17 03:49 Lymph # 0.7 K/mm3 (1.2-5.4) L 04/17/17 03:49 [place] # 0.6 K/mm3 (0.0-0.8) 04/17/17 03:49 Eos # 0.2 K/mm3 (0.0-0.4) 04/17/17 03:49 Baso # 0.0 K/mm3 (0.0-0.1) 04/17/17 03:49 Add Manual Diff Complete 04/16/17 04:04 Total Counted 100 04/16/17 04:04 Seg Neutrophils % 89.2 % (40.0-70.0) H 04/17/17 03:49 Seg Neuts % (Manual) 76.0 % (40.0-70.0) H 04/16/17 04:04 Band Neutrophils % 15.0 % 04/16/17 04:04 Lymphocytes % (Manual) 8.0 % (13.4-35.0) L 04/16/17 04:04 Reactive Lymphs % (Man) 0 % 04/16/17 04:04 Monocytes % (Manual) 1.0 % (0.0-7.3) 04/16/17 04:04 Eosinophils % (Manual) 0 % (0.0-4.3) 04/16/17 04:04 Basophils % (Manual) 0 % (0.0-1.8) 04/16/17 04:04 Metamyelocytes % 0 % 04/16/17 04:04 Myelocytes % 0 % 04/16/17 04:04 Promyelocytes % 0 % 04/16/17 04:04 Blast Cells % 0 % 04/16/17 04:04 Nucleated RBC % Not Reportable 04/16/17 04:04 Seg Neutrophils # 12.2 K/mm3 (1.8-7.7) H 04/17/17 03:49 Seg Neutrophils # Man 10.9 K/mm3 (1.8-7.7) H 04/16/17 04:04 Band Neutrophils # 2.2 K/mm3 04/16/17 04:04 Lymphocytes # (Manual) 1.2 K/mm3 (1.2-5.4) 04/16/17 04:04 Abs React Lymphs (Man) 0.0 K/mm3 04/16/17 04:04 Monocytes # (Manual) 0.1 K/mm3 (0.0-0.8) 04/16/17 04:04 Eosinophils # (Manual) 0.0 K/mm3 (0.0-0.4) 04/16/17 04:04 Basophils # (Manual) 0.0 K/mm3 (0.0-0.1) 04/16/17 04:04 Metamyelocytes # 0.0 K/mm3 04/16/17 04:04 Myelocytes # 0.0 K/mm3 04/16/17 04:04 Promyelocytes # 0.0 K/mm3 04/16/17 04:04 Blast Cells # 0.0 K/mm3 04/16/17 04:04 WBC Morphology Not Reportable 04/16/17 04:04 Hypersegmented Neuts Not Reportable 04/16/17 04:04 Hyposegmented Neuts Not Reportable 04/16/17 04:04 Hypogranular Neuts Not Reportable 04/16/17 04:04 Smudge Cells Not Reportable 04/16/17 04:04 Toxic Granulation Not Reportable 04/16/17 04:04 Toxic Vacuolation Not Reportable 04/16/17 04:04 Dohle Bodies Not Reportable 04/16/17 04:04 Pelger-Huet Anomaly Not Reportable 04/16/17 04:04 Yusuf Rods Not Reportable 04/16/17 04:04 Platelet Estimate Consistent w auto 04/16/17 04:04 Clumped Platelets Not Reportable 04/16/17 04:04 Plt Clumps, EDTA Not Reportable 04/16/17 04:04 Large Platelets Not Reportable 04/16/17 04:04 Giant Platelets Not Reportable 04/16/17 04:04 Platelet Satelliting Not Reportable 04/16/17 04:04 Plt Morphology Comment Not Reportable 04/16/17 04:04 RBC Morphology Not Reportable 04/16/17 04:04 Dimorphic RBCs Not Reportable 04/16/17 04:04 Polychromasia 1+ 04/16/17 04:04 Hypochromasia Not Reportable 04/16/17 04:04 Poikilocytosis Not Reportable 04/16/17 04:04 Anisocytosis 1+ 04/16/17 04:04 Microcytosis Not Reportable 04/16/17 04:04 Macrocytosis Not Reportable 04/16/17 04:04 Spherocytes Not Reportable 04/16/17 04:04 Pappenheimer Bodies Not Reportable 04/16/17 04:04 Sickle Cells Not Reportable 04/16/17 04:04 Target Cells Not Reportable 04/16/17 04:04 Tear Drop Cells Not Reportable 04/16/17 04:04 Ovalocytes Not Reportable 04/16/17 04:04 Helmet Cells Not Reportable 04/16/17 04:04 Barker-Mullins Bodies Not Reportable 04/16/17 04:04 [place] Rings Not Reportable 04/16/17 04:04 Baljit Cells Not Reportable 04/16/17 04:04 Bite Cells Not Reportable 04/16/17 04:04 Crenated Cell Not Reportable 04/16/17 04:04 Elliptocytes 1+ 04/16/17 04:04 Acanthocytes (Spur) Not Reportable 04/16/17 04:04 Rouleaux Not Reportable 04/16/17 04:04 Hemoglobin C Crystals Not Reportable 04/16/17 04:04 Schistocytes Not Reportable 04/16/17 04:04 Malaria parasites Not Reportable 04/16/17 04:04 [place] Bodies Not Reportable 04/16/17 04:04 Hem Pathologist Commnt No 04/16/17 04:04 POC ABG pH 7.426 (7.35-7.45) 04/15/17 17:25 POC ABG pCO2 32.5 (35-45) L 04/15/17 17:25 POC ABG pO2 94 (80-105) 04/15/17 17:25 POC ABG HCO3 21.4 04/15/17 17:25 POC ABG Total CO2 22 04/15/17 17:25 POC ABG O2 Sat 98 04/15/17 17:25 POC ABG Base Excess -3 04/15/17 17:25 FiO2 50 % 04/15/17 17:25 Sodium 146 mmol/L (137-145) H 04/17/17 03:49 Potassium 4.0 mmol/L (3.6-5.0) 04/17/17 03:49 Chloride 103.3 mmol/L (98-107) 04/17/17 03:49 Carbon Dioxide 15 mmol/L (22-30) L 04/17/17 03:49 Anion Gap 32 mmol/L 04/17/17 03:49 BUN 68 mg/dL (9-20) H 04/17/17 03:49 Creatinine 9.9 mg/dL (0.8-1.5) H 04/17/17 03:49 Estimated GFR 6 ml/min 04/17/17 03:49 BUN/Creatinine Ratio 7 % 04/17/17 03:49 Glucose 108 mg/dL (75-100) H 04/17/17 03:49 Lactic Acid 2.70 mmol/L (0.7-2.0) H* 04/16/17 04:04 Calcium 7.9 mg/dL (8.4-10.2) L 04/17/17 03:49 Phosphorus 5.40 mg/dL (2.5-4.5) H 04/15/17 16:43 Magnesium 1.90 mg/dL (1.7-2.3) 04/15/17 16:43 Total Bilirubin 0.30 mg/dL (0.1-1.2) 04/14/17 11:30 AST 36 units/L (5-40) 04/14/17 11:30 ALT 24 units/L (7-56) 04/14/17 11:30 Alkaline Phosphatase 79 units/L (35-129) 04/14/17 11:30 Troponin T 0.180 ng/mL (0.00-0.029) H* 04/14/17 11:28 C-Reactive Protein 15.00 mg/dL (0.00-1.30) H 04/16/17 16:11 Total Protein 5.9 g/dL (6.3-8.2) L 04/14/17 11:30 Albumin 2.5 g/dL (3.9-5) L 04/14/17 11:30 Albumin/Globulin Ratio 0.7 % 04/14/17 11:30 Triglycerides 134 mg/dL (2-149) 04/14/17 11:28 Cholesterol 94 mg/dL (50-199) 04/14/17 11:28 LDL Cholesterol Direct 32 mg/dL (50-130) L 04/14/17 11:28 HDL Cholesterol 36 mg/dL (40-59) L 04/14/17 11:28 Cholesterol/HDL Ratio 2.61 % 04/14/17 11:28 Random Vancomycin 10.8 ug/mL (0-40.0) 04/17/17 03:49
--- NOTE | 2017-04-17 11:07 | Progress Note ---
Assessment and Plan Severe sepsis. Left upper lobe lung mass, probable lung cancer. End-stage renal disease, on dialysis. Adult failure to thrive. Anemia. Elevated serum troponins. End-stage renal disease, on dialysis. - continue gentle hydration - continue empiric AB's, trend lactate and follow C&S - continue supplemental oxygen to keep sats > 90% - vasopressors if MAP remains < 60mmHg - continue GI & VTE prophylaxis - HD/UF per nephrology (would recommend against UF acutely - continue other care per attending / other consultants - tentatively trnsfer to telemetry today ....35' ...re-evaluate in am & prn Subjective Date of service: 04/17/17 Principal diagnosis: Severe Sepsis; Acute COPD exacerbation; ESRD on Dialysis Interval history: Patient is seen today for: Severe Sepsis; Acute COPD exacerbation; ESRD on Dialysis Seen and examined at bedside; 24hour events reviewed; nursing and respiratory care staff consulted; no adverse overnight events reported to me; doing better; off levophed; denies acute chest pains or increased SOB Objective Vital Signs - 12hr 04/17/17 04/17/17 04/17/17 00:00 00:01 01:00 Temperature 98.7 F Pulse Rate 83 74 Pulse Rate [ Anterior Bilateral Throughout] Pulse Rate [ 83 Apical] Respiratory 16 22 21 Rate Respiratory Rate [Anterior Bilateral Throughout] Respiratory 18 Rate [ Generalized] Blood Pressure 108/53 121/57 O2 Sat by Pulse 100 100 Oximetry 04/17/17 04/17/17 04/17/17 01:37 01:38 02:00 Temperature Pulse Rate 78 82 Pulse Rate [ Anterior Bilateral Throughout] Pulse Rate [ Apical] Respiratory 16 17 Rate Respiratory Rate [Anterior Bilateral Throughout] Respiratory Rate [ Generalized] Blood Pressure 112/64 108/76 O2 Sat by Pulse 100 100 100 Oximetry 04/17/17 04/17/17 04/17/17 03:00 04:00 05:00 Temperature 98.1 F Pulse Rate 78 86 70 Pulse Rate [ Anterior Bilateral Throughout] Pulse Rate [ 83 Apical] Respiratory 20 16 19 Rate Respiratory Rate [Anterior Bilateral Throughout] Respiratory Rate [ Generalized] Blood Pressure 99/62 109/67 111/58 O2 Sat by Pulse 100 100 100 Oximetry 04/17/17 04/17/17 04/17/17 06:00 06:06 07:00 Temperature Pulse Rate 82 71 Pulse Rate [ Anterior Bilateral Throughout] Pulse Rate [ Apical] Respiratory 13 17 21 Rate Respiratory Rate [Anterior Bilateral Throughout] Respiratory Rate [ Generalized] Blood Pressure 108/54 106/58 O2 Sat by Pulse 100 100 Oximetry 04/17/17 04/17/17 07:40 09:51 Temperature Pulse Rate 69 Pulse Rate [ 70 77 Anterior Bilateral Throughout] Pulse Rate [ Apical] Respiratory 22 Rate Respiratory 19 18 Rate [Anterior Bilateral Throughout] Respiratory Rate [ Generalized] Blood Pressure 106/55 O2 Sat by Pulse 100 97 Oximetry Constitutional: no acute distress, alert Eyes: non-icteric ENT: oropharynx moist Neck: supple, no lymphadenopathy, no JVD, other (no thyromegaly) Effort: mildly labored Ascultation: Bilateral: diminished breath sounds, rhonchi Percussion: Bilateral: not dull Cardiovascular: regular rate and rhythm, murmur noted, other (no rubs) Gastrointestinal: normoactive bowel sounds, soft, non-tender, non-distended, other (No palpable HSM) Integumentary: normal Extremities: no cyanosis, no edema, pulses normal, no ischemia or petechiae Neurologic: normal mental status, non-focal exam, pupils equal and round, motor strength normal and Psychiatric: mood appropriate, affect normal CBC and BMP: 04/18/17 04:00 04/18/17 04:00 ABG, PT/INR, D-dimer: ABG POC ABG pH 7.426 (7.35-7.45) 04/15/17 17:25 POC ABG pCO2 32.5 (35-45) L 04/15/17 17:25 POC ABG pO2 94 (80-105) 04/15/17 17:25 POC ABG HCO3 21.4 04/15/17 17:25 POC ABG Total CO2 22 04/15/17 17:25 POC ABG O2 Sat 98 04/15/17 17:25 Abnormal lab findings: Abnormal Labs 04/14/17 04/14/17 04/14/17 11:28 11:28 11:30 WBC 11.9 H RBC 3.00 L Hgb 8.3 L Hct 26.9 L MCH MCHC 31 L RDW 21.9 H Lymph % (Auto) 11.0 L [place] % (Auto) 10.4 H Lymph # [place] # 1.2 H Seg Neutrophils % 78.1 H Seg Neuts % (Manual) Lymphocytes % (Manual) Seg Neutrophils # 9.3 H Seg Neutrophils # Man POC ABG pCO2 Sodium Potassium 3.5 L Carbon Dioxide BUN 45 H Creatinine 8.0 H Glucose Lactic Acid Calcium Phosphorus Troponin T 0.180 H* C-Reactive Protein Total Protein 5.9 L Albumin 2.5 L LDL Cholesterol Direct 32 L HDL Cholesterol 36 L 04/14/17 04/14/17 04/14/17 11:51 23:02 23:55 WBC RBC Hgb Hct MCH MCHC RDW Lymph % (Auto) [place] % (Auto) Lymph # [place] # Seg Neutrophils % Seg Neuts % (Manual) Lymphocytes % (Manual) Seg Neutrophils # Seg Neutrophils # Man POC ABG pCO2 Sodium Potassium Carbon Dioxide BUN Creatinine Glucose Lactic Acid 3.10 H* 2.70 H* 2.30 H* Calcium Phosphorus Troponin T C-Reactive Protein Total Protein Albumin LDL Cholesterol Direct HDL Cholesterol 04/15/17 04/15/17 04/15/17 00:56 16:43 16:43 WBC RBC Hgb Hct MCH MCHC RDW Lymph % (Auto) [place] % (Auto) Lymph # [place] # Seg Neutrophils % Seg Neuts % (Manual) Lymphocytes % (Manual) Seg Neutrophils # Seg Neutrophils # Man POC ABG pCO2 Sodium Potassium Carbon Dioxide BUN Creatinine Glucose Lactic Acid 3.20 H* Calcium Phosphorus 5.40 H Troponin T C-Reactive Protein 21.90 H Total Protein Albumin LDL Cholesterol Direct HDL Cholesterol 04/15/17 04/16/17 04/16/17 17:25 04:04 04:04 WBC 14.4 H RBC 2.77 L Hgb 7.6 L Hct 25.2 L MCH MCHC 30 L RDW 21.9 H Lymph % (Auto) [place] % (Auto) Lymph # [place] # Seg Neutrophils % Seg Neuts % (Manual) 76.0 H Lymphocytes % (Manual) 8.0 L Seg Neutrophils # Seg Neutrophils # Man 10.9 H POC ABG pCO2 32.5 L Sodium Potassium Carbon Dioxide 18 L BUN 61 H Creatinine 9.6 H Glucose 127 H Lactic Acid Calcium Phosphorus Troponin T C-Reactive Protein Total Protein Albumin LDL Cholesterol Direct HDL Cholesterol 04/16/17 04/16/17 04/17/17 04:04 16:11 03:49 WBC 13.7 H RBC Hgb 10.8 L D Hct MCH 27 L MCHC 30 L RDW 21.6 H Lymph % (Auto) 4.9 L [place] % (Auto) Lymph # 0.7 L [place] # Seg Neutrophils % 89.2 H Seg Neuts % (Manual) Lymphocytes % (Manual) Seg Neutrophils # 12.2 H Seg Neutrophils # Man POC ABG pCO2 Sodium Potassium Carbon Dioxide BUN Creatinine Glucose Lactic Acid 2.70 H* Calcium Phosphorus Troponin T C-Reactive Protein 15.00 H Total Protein Albumin LDL Cholesterol Direct HDL Cholesterol 04/17/17 03:49 WBC RBC Hgb Hct MCH MCHC RDW Lymph % (Auto) [place] % (Auto) Lymph # [place] # Seg Neutrophils % Seg Neuts % (Manual) Lymphocytes % (Manual) Seg Neutrophils # Seg Neutrophils # Man POC ABG pCO2 Sodium 146 H Potassium Carbon Dioxide 15 L BUN 68 H Creatinine 9.9 H Glucose 108 H Lactic Acid Calcium 7.9 L Phosphorus Troponin T C-Reactive Protein Total Protein Albumin LDL Cholesterol Direct HDL Cholesterol Chest x-ray: image reviewed (INCREASING MARIS LUNG MASS) Allied health notes reviewed: nursing
--- NOTE | 2017-04-17 13:06 | Progress Note ---
Assessment and Plan Assessment: 1) Sepsis: still high fever. Etiology most likely ?post-obstructive pneumonia + /- extensive lung malignancy. 2) Large lung mass: patient and family have refused w/u and biopsy multiple time in the past -Chest x-ray show worsening size of left upper lobe mass 10 x 11 cm. -CRP=21--.15 3) COPD with exacerbation 4) ESRD on HD (M,W,F) 5) HIV infection (unknown details about his HIV except for his ART-lamivudine, nevirapime, dolutegravir) 6) Encephalopathy on top of dementia- better Plan: -follow-up blood cultures -continue levaquin and flagyl to cover post-obstructive pneumonia-day 2 of 7 -agree with hospice care, no further aggressive w/u needed at this time Thank you for your consultation, will follow up with you. Romi Johnson MD Infectious Diseases Specialist [facility], [place], [facility] [phone] Subjective Date of service: 04/17/17 Principal diagnosis: Severe Sepsis; Acute COPD exacerbation; ESRD on Dialysis Interval history: Feels ok, no complaints. Had a 103 fever yesterday. Microbiology: Blood cultures: 04/14 ngtd Urine cultures: Respiratory cultures: Current Antimicrobials: Levaquin 04/16 Flagyl 04/16 Objective - Exam Narrative Exam: General appearance: Alert in NAD, conversant Eyes: anicteric sclerae, moist conjunctivae, +sima iris lesions; no lid-lag; PERRLA HENT: Atraumatic; oropharynx partially edentulous Neck: Trachea midline; supple, no thyromegaly or lymphadenopathy Lungs: distant BS CV: RRR Abdomen: tense distended TTP in right flank Extremities: right arm AVF with ecchymoses Skin: Normal temperature, turgor and texture; no rash, ulcers or subcutaneous nodules Psych: Appropriate affect, alert and oriented to person, place and time. Neuro: alert and oriented x 3. Moving all extermities Lines: No CVL / PICC - Constitutional Vitals: Vital Signs Temp Pulse Resp BP Pulse Ox 98.3 F 85 20 111/48 95 04/17/17 12:00 04/17/17 12:00 04/17/17 12:00 04/17/17 12:04/17/17 12:00 Temperature -Last 24 Hours Temperature 98.3 F Temperature 98 F Temperature 98.1 F Temperature 98.7 F Temperature 98.8 F Temperature 103.1 F - Labs CBC & Chem 7: 04/17/17 03:49 04/17/17 03:49 Labs: Abnormal lab results 04/16/17 04/17/17 04/17/17 Range/Units 16:11 03:49 03:49 WBC 13.7 H (4.5-11.0) K/mm3 Hgb 10.8 L D (11.8-15.2) gm/dl MCH 27 L (28-32) pg MCHC 30 L (32-34) % RDW 21.6 H (13.2-15.2) % Lymph % (Auto) 4.9 L (13.4-35.0) % Lymph # 0.7 L (1.2-5.4) K/mm3 Seg Neutrophils % 89.2 H (40.0-70.0) % Seg Neutrophils # 12.2 H (1.8-7.7) K/mm3 Sodium 146 H (137-145) mmol/L Carbon Dioxide 15 L (22-30) mmol/L BUN 68 H (9-20) mg/dL Creatinine 9.9 H (0.8-1.5) mg/dL Glucose 108 H (75-100) mg/dL Calcium 7.9 L (8.4-10.2) mg/dL C-Reactive Protein 15.00 H (0.00-1.30) mg/dL
[2017-04-18] MEDS: FLAGYL 500 MG/100 ML 500 MG/100 ML BAG IV SCH ×3 (00:15→15:27)
[2017-04-18] MEDS: PROAMATINE PO SCH ×3 (02:34→23:21)
[2017-04-18 07:29] LABS: Hematocrit 25.2 % (35.5-45.6); Hemoglobin 7.5 gm/dl (11.8-15.2); Mean Corpuscular HGB Conc 30 % (32-34); Mean Corpuscular Hemoglobin 28 pg (28-32); Mean Corpuscular Volume 94 fl (84-94); Platelet Count 397 K/mm3 (140-440); Red Blood Count 2.69 M/mm3 (3.65-5.03)
[2017-04-18 07:41] LABS: Red Cell Distribution Width 22.6 % (13.2-15.2)
[2017-04-18] MEDS: BROVANA NEBU IH SCH ×2 (07:50→20:10)
[2017-04-18] MEDS: PULMICORT IH SCH ×2 (07:50→20:10)
[2017-04-18 08:03] LABS: Anisocytosis 1+; Band Neutrophils # (Manual) 0.3 K/mm3; Basophils % (Manual) 0 % (0.0-1.8); Eosinophils % (Manual) 0 % (0.0-4.3); Myelocytes # (Manual) 0.1 K/mm3; Platelet Estimate Consistent w Auto; Tear Drop Cells Few; Total Cells Counted 100
--- NOTE | 2017-04-18 08:13 | Event Note ---
EDMD CODE BLUE note/intubation note Called to floor for CODE BLUE in progress. Upon my arrival the patient was unresponsive on the stretcher with PEA on the monitor. Chest compressions are being administered by nursing staff. The patient was intubated by myself The patient was intubated via orotracheal route using a a 8.5 mm endotracheal tube. Rapid sequence induction was not used. Positioning was confirmed using auscultation and CO2 detector. Pulmonary: Breath sounds auscultated bilaterally with bagging. Abdomen: No breath sounds over the epigastric region Neuro: GCS 3T Patient left in the care of Dr. Mendoza (hospitalist) at bedside to resume ACLS protocols
[2017-04-18] MEDS ORDERED: VASELINE LIP THERAPY TP PRN (08:40)
[2017-04-18] MEDS ORDERED: ARTIFICIAL TEARS OPHTH OINT OU PRN (08:40)
[2017-04-18] MEDS ORDERED: DIPRIVAN 10 MG/ML 1,000 MG/100 ML BOTTLE IV SCH (09:00)
[2017-04-18] MEDS ORDERED: SODIUM BICARBONATE IV ONE ×2 (10:11→10:14)
[2017-04-18] MEDS ORDERED: SODIUM BICARBONATE IV NR ×2 (10:30→11:00)
--- NOTE | 2017-04-18 10:44 | XRay Report ---
ROUTINE CHEST, TWO VIEWS: HISTORY: Endotracheal tube placement. Compared to 04/14/17. An endotracheal tube has been inserted which terminates 5.7 cm superior to the mikaela. Heart size is within normal limits. There is a hazy rounded opacity in the left upper lobe measuring up to 7-8 cm in diameter which is unchanged. This may represent loculated fluid or mass. Consider further evaluation with CT with contrast. There are mild chronic interstitial changes in the remainder of the lungs. No convincing pneumonia. No large pleural effusion or pneumothorax. IMPRESSION: Adequate placement of the endotracheal tube. Large opacity overlying the left upper lobe. Mass versus loculated fluid. Consider further evaluation with CT chest with contrast.
[2017-04-18] MEDS: LOVENOX SUB-Q SCH (10:47)
[2017-04-18] MEDS: PEPCID PO SCH (10:57)
[2017-04-18] MEDS: HALFPRIN EC PO SCH (10:58)
[2017-04-18] MEDS: TIVICAY (NF) PO SCH (10:58)
[2017-04-18] MEDS: NON-FORMULARY PO SCH (10:58)
[2017-04-18] MEDS: VIRAMUNE PO SCH ×2 (10:58→23:21)
[2017-04-18] MEDS: LEVAQUIN 500MG/100ML 500 MG/100 ML BAG IV SCH (13:06)
--- NOTE | 2017-04-18 13:11 | Progress Note ---
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 He was transferred out of ICU yesterday. Kapil Handy was called today (prior to me seeing patient on this admission). It appears patient was on bipap all night and he was transitioned to nasal canula, he was doing ok per Michael, Respiratory therapist. Then patient removed the nasal canula himself, he became cyanotic, hypoxic and leading to a respiratory arrest. He was successfully intubated and moved back to the ICU. 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 IV antibiotics, initial lactic acid elevated. F/U blood cultures, ESRD (end stage renal disease) Nephrology following, monitor uop q shift, daily weight, dialysis as per renal team. Severe malnutrition Encourage oral intake when awake and alert only. Toxic metabolic Encephalopathy CT Head, neuro checks, IVF resuscitation, supportive care. Cont. to treat underlying causes Acute hypoxemic respiratory failure Supplemental oxygen, nebulizer, NIPPV as clinically indicated. COPD with acute exacerbation Nebulizers, oxygen, Cont IV steroids(Solumedrol 40mg BID), Cont. IV antibiotics , supportive care h/o lung mass pt was evaluated by pulmonology in the past, family refused aggressive workup and management History of HIV/AIDS Continue current antiretroviral therapy, ID evaluation Anemia of chronic disease Procrit during dialysis, transfuse as needed DVT prophylaxis d/w Friend, Hong at bedside, not son nor patient's brother. Patient doesn't have kids, parents or significant other. Patient has 2 siblings, a sister name Rebeca, and brother Tomas Blandon [phone], both have given [place] the authority to make medical decision per Silvio from [facility]. Trying to extubate today then inpatient Hospice. The lung cancer appears to be getting worse per CXR DNR per decision with [place] at bedside. The high probability of a clinically significant, sudden or life threatening deterioration of the [neurologic,cardiac] system(s) required my full and direct attention, intervention and personal management. The aggregate critical care time was [40 ] minutes. This time is in addition to time spent performing reported procedures but includes the following: [x] Data Review and interpretation [x] Patient assessment and monitoring of vital signs [x] Documentation [x] Medication orders and management History Interval history: Patient was seen and examined during [facility] Hospitalist Physical - Physical exam Narrative exam: GEN: Cachectic, chronically debilitated appearing, Unresponsive, not moving not breathing HEENT: NCAT, pupils sluggish NECK: supple, no adenopathy, no thyromegaly, no JVD CVS/HEART: Pulseless CHEST/LUNGS: Symmetrical chest expansion with Ambu bagging - Constitutional Vitals: Temp Pulse Resp BP Pulse Ox 97.4 F L 97 H 28 H 96/50 95 04/18/17 09:16 04/18/17 09:21 04/18/17 10:00 04/18/17 09:21 04/18/17 09:21 Results - Labs CBC & Chem 7: 04/18/17 04:00 04/18/17 04:00 Labs: Laboratory Last Values WBC 14.3 K/mm3 (4.5-11.0) H 04/18/17 04:00 RBC 2.69 M/mm3 (3.65-5.03) L 04/18/17 04:00 Hgb 7.5 gm/dl (11.8-15.2) L D 04/18/17 04:00 Hct 25.2 % (35.5-45.6) L D 04/18/17 04:00 MCV 94 fl (84-94) 04/18/17 04:00 MCH 28 pg (28-32) 04/18/17 04:00 MCHC 30 % (32-34) L 04/18/17 04:00 RDW 22.6 % (13.2-15.2) H 04/18/17 04:00 Plt Count 397 K/mm3 (140-440) 04/18/17 04:00 Lymph % (Auto) 4.9 % (13.4-35.0) L 04/17/17 03:49 [place] % (Auto) 4.6 % (0.0-7.3) 04/17/17 03:49 Eos % (Auto) 1.2 % (0.0-4.3) 04/17/17 03:49 Baso % (Auto) 0.1 % (0.0-1.8) 04/17/17 03:49 Lymph # 0.7 K/mm3 (1.2-5.4) L 04/17/17 03:49 [place] # 0.6 K/mm3 (0.0-0.8) 04/17/17 03:49 Eos # 0.2 K/mm3 (0.0-0.4) 04/17/17 03:49 Baso # 0.0 K/mm3 (0.0-0.1) 04/17/17 03:49 Add Manual Diff Complete 04/18/17 04:00 Total Counted 100 04/18/17 04:00 Seg Neutrophils % Weed Eradicator 04/18/17 04:00 Seg Neuts % (Manual) 88.0 % (40.0-70.0) H 04/18/17 04:00 Band Neutrophils % 2.0 % 04/18/17 04:00 Lymphocytes % (Manual) 6.0 % (13.4-35.0) L 04/18/17 04:00 Reactive Lymphs % (Man) 0 % 04/18/17 04:00 Monocytes % (Manual) 3.0 % (0.0-7.3) 04/18/17 04:00 Eosinophils % (Manual) 0 % (0.0-4.3) 04/18/17 04:00 Basophils % (Manual) 0 % (0.0-1.8) 04/18/17 04:00 Metamyelocytes % 0 % 04/18/17 04:00 Myelocytes % 1.0 % 04/18/17 04:00 Promyelocytes % 0 % 04/18/17 04:00 Blast Cells % 0 % 04/18/17 04:00 Nucleated RBC % Not Reportable 04/18/17 04:00 Seg Neutrophils # 12.2 K/mm3 (1.8-7.7) H 04/17/17 03:49 Seg Neutrophils # Man 12.6 K/mm3 (1.8-7.7) H 04/18/17 04:00 Band Neutrophils # 0.3 K/mm3 04/18/17 04:00 Lymphocytes # (Manual) 0.9 K/mm3 (1.2-5.4) L 04/18/17 04:00 Abs React Lymphs (Man) 0.0 K/mm3 04/18/17 04:00 Monocytes # (Manual) 0.4 K/mm3 (0.0-0.8) 04/18/17 04:00 Eosinophils # (Manual) 0.0 K/mm3 (0.0-0.4) 04/18/17 04:00 Basophils # (Manual) 0.0 K/mm3 (0.0-0.1) 04/18/17 04:00 Metamyelocytes # 0.0 K/mm3 04/18/17 04:00 Myelocytes # 0.1 K/mm3 04/18/17 04:00 Promyelocytes # 0.0 K/mm3 04/18/17 04:00 Blast Cells # 0.0 K/mm3 04/18/17 04:00 WBC Morphology Not Reportable 04/18/17 04:00 Hypersegmented Neuts Not Reportable 04/18/17 04:00 Hyposegmented Neuts Not Reportable 04/18/17 04:00 Hypogranular Neuts Not Reportable 04/18/17 04:00 Smudge Cells Not Reportable 04/18/17 04:00 Toxic Granulation Not Reportable 04/18/17 04:00 Toxic Vacuolation Not Reportable 04/18/17 04:00 Dohle Bodies Not Reportable 04/18/17 04:00 Pelger-Huet Anomaly Not Reportable 04/18/17 04:00 Yusuf Rods Not Reportable 04/18/17 04:00 Platelet Estimate Consistent w auto 04/18/17 04:00 Clumped Platelets Not Reportable 04/18/17 04:00 Plt Clumps, EDTA Not Reportable 04/18/17 04:00 Large Platelets Not Reportable 04/18/17 04:00 Giant Platelets Not Reportable 04/18/17 04:00 Platelet Satelliting Not Reportable 04/18/17 04:00 Plt Morphology Comment Not Reportable 04/18/17 04:00 RBC Morphology Not Reportable 04/18/17 04:00 Dimorphic RBCs Not Reportable 04/18/17 04:00 Polychromasia Not Reportable 04/18/17 04:00 Hypochromasia Not Reportable 04/18/17 04:00 Poikilocytosis Not Reportable 04/18/17 04:00 Anisocytosis 1+ 04/18/17 04:00 Microcytosis Not Reportable 04/18/17 04:00 Macrocytosis Not Reportable 04/18/17 04:00 Spherocytes Not Reportable 04/18/17 04:00 Pappenheimer Bodies Not Reportable 04/18/17 04:00 Sickle Cells Not Reportable 04/18/17 04:00 Target Cells Not Reportable 04/18/17 04:00 Tear Drop Cells Few 04/18/17 04:00 Ovalocytes Not Reportable 04/18/17 04:00 Helmet Cells Not Reportable 04/18/17 04:00 [place] Bodies Not Reportable 04/18/17 04:00 Victor Rings Not Reportable 04/18/17 04:00 [place] Cells Not Reportable 04/18/17 04:00 Bite Cells Not Reportable 04/18/17 04:00 Crenated Cell Not Reportable 04/18/17 04:00 Elliptocytes Not Reportable 04/18/17 04:00 Acanthocytes (Spur) Not Reportable 04/18/17 04:00 Rouleaux Not Reportable 04/18/17 04:00 Hemoglobin C Crystals Not Reportable 04/18/17 04:00 Schistocytes Not Reportable 04/18/17 04:00 Malaria parasites Not Reportable 04/18/17 04:00 [place] Bodies Not Reportable 04/18/17 04:00 Hem Pathologist Commnt No 04/18/17 04:00 POC ABG pH 7.109 (7.35-7.45) L 04/18/17 10:10 POC ABG pCO2 30.1 (35-45) L 04/18/17 10:10 POC ABG pO2 102 (80-105) 04/18/17 10:10 POC ABG HCO3 9.5 04/18/17 10:10 POC ABG Total CO2 10 04/18/17 10:10 POC ABG O2 Sat 95 04/18/17 10:10 POC ABG Base Excess -20 04/18/17 10:10 FiO2 50 % 04/18/17 10:10 Sodium 148 mmol/L (137-145) H 04/18/17 04:00 Potassium 4.1 mmol/L (3.6-5.0) 04/18/17 04:00 Chloride 103.2 mmol/L (98-107) 04/18/17 04:00 Carbon Dioxide 12 mmol/L (22-30) L 04/18/17 04:00 Anion Gap 37 mmol/L 04/18/17 04:00 BUN 76 mg/dL (9-20) H 04/18/17 04:00 Creatinine 10.8 mg/dL (0.8-1.5) H 04/18/17 04:00 Estimated GFR 6 ml/min 04/18/17 04:00 BUN/Creatinine Ratio 7 % 04/18/17 04:00 Glucose 118 mg/dL (75-100) H 04/18/17 04:00 Lactic Acid 2.70 mmol/L (0.7-2.0) H* 04/16/17 04:04 Calcium 8.0 mg/dL (8.4-10.2) L 04/18/17 04:00 Phosphorus 5.40 mg/dL (2.5-4.5) H 04/15/17 16:43 Magnesium 1.90 mg/dL (1.7-2.3) 04/15/17 16:43 Total Bilirubin 0.30 mg/dL (0.1-1.2) 04/14/17 11:30 AST 36 units/L (5-40) 04/14/17 11:30 ALT 24 units/L (7-56) 04/14/17 11:30 Alkaline Phosphatase 79 units/L (35-129) 04/14/17 11:30 Troponin T 0.180 ng/mL (0.00-0.029) H* 04/14/17 11:28 C-Reactive Protein 15.00 mg/dL (0.00-1.30) H 04/16/17 16:11 Total Protein 5.9 g/dL (6.3-8.2) L 04/14/17 11:30 Albumin 2.5 g/dL (3.9-5) L 04/14/17 11:30 Albumin/Globulin Ratio 0.7 % 04/14/17 11:30 Triglycerides 134 mg/dL (2-149) 04/14/17 11:28 Cholesterol 94 mg/dL (50-199) 04/14/17 11:28 LDL Cholesterol Direct 32 mg/dL (50-130) L 04/14/17 11:28 HDL Cholesterol 36 mg/dL (40-59) L 04/14/17 11:28 Cholesterol/HDL Ratio 2.61 % 04/14/17 11:28 Random Vancomycin 10.8 ug/mL (0-40.0) 04/17/17 03:49
[2017-04-18] MEDS ORDERED: NACL 0.9% 100 ML IV PRN (15:57)
--- NOTE | 2017-04-18 16:11 | Progress Note ---
Assessment and Plan Assessment: 1) Sepsis: no fever still leukocytosis . Etiology most likely ?post- obstructive pneumonia +/- extensive lung malignancy. 2) Large lung mass: patient and family have refused w/u and biopsy multiple time in the past -Chest x-ray show worsening size of left upper lobe mass 10 x 11 cm. -CRP=21--.15 3) COPD with exacerbation 4) ESRD on HD (M,W,F) 5) HIV infection (unknown details about his HIV except for his ART-lamivudine, nevirapime, dolutegravir) 6) Encephalopathy on top of dementia- better 7) S/P PEA arrest 8) Respiratory failure, acute: intubated Plan: -continue levaquin and flagyl to cover post-obstructive pneumonia-day 3of 7 -agree with hospice care, no further aggressive w/u needed at this time, patient is going for hospice. Thank you for your consultation, will follow up with you. Romi Johnson MD Infectious Diseases Specialist [facility] ([facility]) M [phone] O [phone] Subjective Date of service: 04/18/17 Principal diagnosis: Severe Sepsis; Acute COPD exacerbation; ESRD on Dialysis Interval history: Feels ok, no complaints. No fever last 24h. Went to the floor, started desating , went into cardiac arrest on PEA. s/p CPR and now intubated. Currently alert, very anxious intubated requesting to be extubated.. Microbiology: Blood cultures: 04/14 ngtd Urine cultures: Respiratory cultures: Current Antimicrobials: Levaquin 04/16 Flagyl 04/16 Objective - Exam Narrative Exam: General appearance: Alert anxious, agitated in mild resp distress intubated Eyes: anicteric sclerae, moist conjunctivae, +sima iris lesions; no lid-lag; PERRLA HENT: Atraumatic; oropharynx +ETT Neck: Trachea midline; supple, no thyromegaly or lymphadenopathy Lungs: distant BS CV: RRR Abdomen: tense distended TTP in right flank Extremities: right arm AVF with ecchymoses Skin: Normal temperature, turgor and texture; no rash, ulcers or subcutaneous nodules Psych: anxious Neuro: agitated on the vent Lines: No CVL / PICC - Constitutional Vitals: Vital Signs Temp Pulse Resp BP Pulse Ox 97.4 F L 97 H 28 H 96/50 95 04/18/17 09:16 04/18/17 09:21 04/18/17 10:00 04/18/17 09:21 04/18/17 09:21 Temperature -Last 24 Hours Temperature 97.4 F Temperature 97.4 F Temperature 97.3 F Temperature 99.7 F Temperature 97.3 F - Labs CBC & Chem 7: 04/18/17 04:00 04/18/17 04:00 Labs: Abnormal lab results 04/18/17 04/18/17 04/18/17 Range/Units 04:00 04:00 10:10 WBC 14.3 H (4.5-11.0) K/mm3 RBC 2.69 L (3.65-5.03) M/mm3 Hgb 7.5 L D (11.8-15.2) gm/dl Hct 25.2 L D (35.5-45.6) % MCHC 30 L (32-34) % RDW 22.6 H (13.2-15.2) % Seg Neuts % (Manual) 88.0 H (40.0-70.0) % Lymphocytes % (Manual) 6.0 L (13.4-35.0) % Seg Neutrophils # Man 12.6 H (1.8-7.7) K/mm3 Lymphocytes # (Manual) 0.9 L (1.2-5.4) K/mm3 POC ABG pH 7.109 L (7.35-7.45) POC ABG pCO2 30.1 L (35-45) Sodium 148 H (137-145) mmol/L Carbon Dioxide 12 L (22-30) mmol/L BUN 76 H (9-20) mg/dL Creatinine 10.8 H (0.8-1.5) mg/dL Glucose 118 H (75-100) mg/dL Calcium 8.0 L (8.4-10.2) mg/dL
[2017-04-18] MEDS: LEVOPHED DRIP 4 MG/NS 250 ML 4 MG/250 ML BAG IV SCH (18:01)
--- NOTE | 2017-04-18 18:06 | Progress Note ---
Assessment and Plan Cardiopulmonary arrest on MVS Severe sepsis. Metabolic acidosis Left upper lobe lung mass, probable lung cancer. End-stage renal disease, on dialysis. Adult failure to thrive. Anemia. Elevated serum troponins. End-stage renal disease, on dialysis. - continue gentle hydration - continue empiric AB's, trend lactate and follow C&S - continue supplemental oxygen to keep sats > 90% - vasopressors if MAP remains < 60mmHg - continue GI & VTE prophylaxis - HD/UF per nephrology -VAP bundle addressed -Give bicarbonate short term -SBT and wean to extubate, post extubation keep NPO over night -NIPPV qhs and prn post extubation - continue other care per attending / other consultants ....35' Subjective Date of service: 04/18/17 Principal diagnosis: Severe Sepsis; Acute COPD exacerbation; ESRD on Dialysis Interval history: Patient is seen today for: Severe Sepsis; Acute COPD exacerbation; ESRD on Dialysis Seen and examined at bedside; 24hour events reviewed; nursing and respiratory care staff consulted; no adverse overnight events reported to me; cardiorespiratory arrest this morning thought to be secondary to hypoxia, intubated transferred to ICU Seen and examined, vitals, labs, medications, chart reviewed. Discussed in interdisciplinary rounds Objective - Exam Narrative Exam: General appearance: Alert anxious, agitated in mild resp distress intubated Eyes: anicteric sclerae, moist conjunctivae, +sima iris lesions; no lid-lag; PERRLA HENT: Atraumatic; oropharynx +ETT Neck: Trachea midline; supple, no thyromegaly or lymphadenopathy Lungs: distant BS CV: RRR Abdomen: tense distended TTP in right flank Extremities: right arm AVF with ecchymoses Skin: Normal temperature, turgor and texture; no rash, ulcers or subcutaneous nodules Psych: anxious Neuro: agitated on the vent Lines: No CVL / PICC Vital Signs - 12hr 04/18/17 04/18/17 04/18/17 07:38 07:51 08:18 Temperature 97.4 F L Pulse Rate 105 H Pulse Rate [ From Monitor] Respiratory 18 Rate Blood Pressure 99/41 111/48 O2 Sat by Pulse 74 L 94 Oximetry 04/18/17 04/18/17 04/18/17 08:20 08:30 08:41 Temperature Pulse Rate 108 H 105 H Pulse Rate [ From Monitor] Respiratory 24 26 H Rate Blood Pressure 111/48 175/65 O2 Sat by Pulse 99 100 Oximetry 04/18/17 04/18/17 04/18/17 08:51 09:01 09:11 Temperature Pulse Rate 103 H 96 H 99 H Pulse Rate [ From Monitor] Respiratory 31 H 20 31 H Rate Blood Pressure 154/68 154/68 96/50 O2 Sat by Pulse 100 100 Oximetry 04/18/17 04/18/17 04/18/17 09:16 09:17 09:21 Temperature 97.4 F L Pulse Rate 97 H Pulse Rate [ 101 H From Monitor] Respiratory 27 H 27 H Rate Blood Pressure 96/50 O2 Sat by Pulse 98 95 Oximetry 04/18/17 04/18/17 04/18/17 09:30 09:41 09:51 Temperature Pulse Rate 102 H 96 H 93 H Pulse Rate [ From Monitor] Respiratory 26 H 31 H 26 H Rate Blood Pressure 117/45 117/45 104/29 O2 Sat by Pulse 100 100 100 Oximetry 04/18/17 04/18/17 04/18/17 10:00 10:10 10:20 Temperature Pulse Rate 96 H 97 H 101 H Pulse Rate [ From Monitor] Respiratory 22 22 34 H Rate Blood Pressure 130/51 130/51 O2 Sat by Pulse 98 96 97 Oximetry 04/18/17 04/18/17 04/18/17 10:30 10:40 10:50 Temperature Pulse Rate 97 H 104 H 105 H Pulse Rate [ From Monitor] Respiratory 24 17 32 H Rate Blood Pressure 121/40 123/31 144/33 O2 Sat by Pulse 96 95 94 Oximetry 04/18/17 04/18/17 04/18/17 11:00 11:10 11:20 Temperature Pulse Rate 100 H 87 88 Pulse Rate [ From Monitor] Respiratory 28 H 24 22 Rate Blood Pressure 120/41 120/41 105/48 O2 Sat by Pulse 95 100 99 Oximetry 04/18/17 04/18/17 04/18/17 11:30 11:40 11:50 Temperature Pulse Rate 112 H 87 89 Pulse Rate [ From Monitor] Respiratory 33 H 24 24 Rate Blood Pressure 105/48 142/62 100/44 O2 Sat by Pulse 94 99 98 Oximetry 04/18/17 04/18/17 04/18/17 12:00 12:10 12:20 Temperature 97.4 F L Pulse Rate 82 83 83 Pulse Rate [ 82 From Monitor] Respiratory 27 H 21 21 Rate Blood Pressure 99/47 99/47 102/46 O2 Sat by Pulse 100 100 99 Oximetry 04/18/17 04/18/17 04/18/17 12:30 12:40 12:50 Temperature Pulse Rate 81 82 81 Pulse Rate [ From Monitor] Respiratory 22 23 22 Rate Blood Pressure 101/41 101/41 98/30 O2 Sat by Pulse 100 100 100 Oximetry 04/18/17 04/18/17 04/18/17 13:00 13:10 13:20 Temperature Pulse Rate 81 81 90 Pulse Rate [ From Monitor] Respiratory 22 21 23 Rate Blood Pressure 100/41 100/41 100/41 O2 Sat by Pulse 100 100 Oximetry 04/18/17 04/18/17 04/18/17 13:30 13:40 13:50 Temperature Pulse Rate 96 H 86 87 Pulse Rate [ From Monitor] Respiratory 17 22 24 Rate Blood Pressure 113/44 113/44 112/45 O2 Sat by Pulse 91 49 L Oximetry 04/18/17 04/18/17 04/18/17 14:00 14:10 14:20 Temperature Pulse Rate 84 94 H 88 Pulse Rate [ From Monitor] Respiratory 27 H 22 25 H Rate Blood Pressure 124/49 124/49 115/37 O2 Sat by Pulse 100 100 100 Oximetry 04/18/17 04/18/17 04/18/17 14:30 14:40 14:50 Temperature Pulse Rate 85 85 84 Pulse Rate [ From Monitor] Respiratory 23 26 H 25 H Rate Blood Pressure 117/45 117/45 114/44 O2 Sat by Pulse 100 100 100 Oximetry 04/18/17 04/18/17 04/18/17 15:00 15:10 15:20 Temperature Pulse Rate 95 H 115 H 101 H Pulse Rate [ From Monitor] Respiratory 21 24 23 Rate Blood Pressure 126/47 126/47 129/22 O2 Sat by Pulse 99 92 98 Oximetry 04/18/17 04/18/17 04/18/17 15:30 15:40 15:50 Temperature Pulse Rate 103 H 108 H 103 H Pulse Rate [ From Monitor] Respiratory 29 H 23 25 H Rate Blood Pressure 107/53 107/53 107/53 O2 Sat by Pulse 98 93 96 Oximetry 04/18/17 04/18/17 04/18/17 16:00 16:10 17:45 Temperature 97.6 F Pulse Rate 103 H 95 H 87 Pulse Rate [ 103 H From Monitor] Respiratory 27 H 27 H Rate Blood Pressure 125/36 125/36 105/47 O2 Sat by Pulse 98 99 95 Oximetry 04/18/17 17:54 Temperature Pulse Rate Pulse Rate [ From Monitor] Respiratory Rate Blood Pressure O2 Sat by Pulse 97 Oximetry Constitutional: no acute distress, alert Eyes: non-icteric ENT: oropharynx moist Neck: supple, no lymphadenopathy, no JVD, other (no thyromegaly) Effort: mildly labored Ascultation: Bilateral: diminished breath sounds, rhonchi Percussion: Bilateral: not dull Cardiovascular: regular rate and rhythm, murmur noted, other (no rubs) Gastrointestinal: normoactive bowel sounds, soft, non-tender, non-distended, other (No palpable HSM) Integumentary: normal Extremities: no cyanosis, no edema, pulses normal, no ischemia or petechiae Neurologic: normal mental status, non-focal exam, pupils equal and round, motor strength normal and Psychiatric: mood appropriate, affect normal CBC and BMP: 04/18/17 04:00 04/18/17 04:00 ABG, PT/INR, D-dimer: ABG POC ABG pH 7.109 (7.35-7.45) L 04/18/17 10:10 POC ABG pCO2 30.1 (35-45) L 04/18/17 10:10 POC ABG pO2 102 (80-105) 04/18/17 10:10 POC ABG HCO3 9.5 04/18/17 10:10 POC ABG Total CO2 10 04/18/17 10:10 POC ABG O2 Sat 95 04/18/17 10:10 Abnormal lab findings: Abnormal Labs 04/14/17 04/14/17 04/14/17 11:28 11:28 11:30 WBC 11.9 H RBC 3.00 L Hgb 8.3 L Hct 26.9 L MCH MCHC 31 L RDW 21.9 H Lymph % (Auto) 11.0 L [place] % (Auto) 10.4 H Lymph # [place] # 1.2 H Seg Neutrophils % 78.1 H Seg Neuts % (Manual) Lymphocytes % (Manual) Seg Neutrophils # 9.3 H Seg Neutrophils # Man Lymphocytes # (Manual) POC ABG pH POC ABG pCO2 Sodium Potassium 3.5 L Carbon Dioxide BUN 45 H Creatinine 8.0 H Glucose Lactic Acid Calcium Phosphorus Troponin T 0.180 H* C-Reactive Protein Total Protein 5.9 L Albumin 2.5 L LDL Cholesterol Direct 32 L HDL Cholesterol 36 L 04/14/17 04/14/17 04/14/17 11:51 23:02 23:55 WBC RBC Hgb Hct MCH MCHC RDW Lymph % (Auto) [place] % (Auto) Lymph # [place] # Seg Neutrophils % Seg Neuts % (Manual) Lymphocytes % (Manual) Seg Neutrophils # Seg Neutrophils # Man Lymphocytes # (Manual) POC ABG pH POC ABG pCO2 Sodium Potassium Carbon Dioxide BUN Creatinine Glucose Lactic Acid 3.10 H* 2.70 H* 2.30 H* Calcium Phosphorus Troponin T C-Reactive Protein Total Protein Albumin LDL Cholesterol Direct HDL Cholesterol 04/15/17 04/15/17 04/15/17 00:56 16:43 16:43 WBC RBC Hgb Hct MCH MCHC RDW Lymph % (Auto) [place] % (Auto) Lymph # [place] # Seg Neutrophils % Seg Neuts % (Manual) Lymphocytes % (Manual) Seg Neutrophils # Seg Neutrophils # Man Lymphocytes # (Manual) POC ABG pH POC ABG pCO2 Sodium Potassium Carbon Dioxide BUN Creatinine Glucose Lactic Acid 3.20 H* Calcium Phosphorus 5.40 H Troponin T C-Reactive Protein 21.90 H Total Protein Albumin LDL Cholesterol Direct HDL Cholesterol 04/15/17 04/16/17 04/16/17 17:25 04:04 04:04 WBC 14.4 H RBC 2.77 L Hgb 7.6 L Hct 25.2 L MCH MCHC 30 L RDW 21.9 H Lymph % (Auto) [place] % (Auto) Lymph # [place] # Seg Neutrophils % Seg Neuts % (Manual) 76.0 H Lymphocytes % (Manual) 8.0 L Seg Neutrophils # Seg Neutrophils # Man 10.9 H Lymphocytes # (Manual) POC ABG pH POC ABG pCO2 32.5 L Sodium Potassium Carbon Dioxide 18 L BUN 61 H Creatinine 9.6 H Glucose 127 H Lactic Acid Calcium Phosphorus Troponin T C-Reactive Protein Total Protein Albumin LDL Cholesterol Direct HDL Cholesterol 04/16/17 04/16/17 04/17/17 04:04 16:11 03:49 WBC 13.7 H RBC Hgb 10.8 L D Hct MCH 27 L MCHC 30 L RDW 21.6 H Lymph % (Auto) 4.9 L [place] % (Auto) Lymph # 0.7 L [place] # Seg Neutrophils % 89.2 H Seg Neuts % (Manual) Lymphocytes % (Manual) Seg Neutrophils # 12.2 H Seg Neutrophils # Man Lymphocytes # (Manual) POC ABG pH POC ABG pCO2 Sodium Potassium Carbon Dioxide BUN Creatinine Glucose Lactic Acid 2.70 H* Calcium Phosphorus Troponin T C-Reactive Protein 15.00 H Total Protein Albumin LDL Cholesterol Direct HDL Cholesterol 04/17/17 04/18/17 04/18/17 03:49 04:00 04:00 WBC 14.3 H RBC 2.69 L Hgb 7.5 L D Hct 25.2 L D MCH MCHC 30 L RDW 22.6 H Lymph % (Auto) [place] % (Auto) Lymph # [place] # Seg Neutrophils % Seg Neuts % (Manual) 88.0 H Lymphocytes % (Manual) 6.0 L Seg Neutrophils # Seg Neutrophils # Man 12.6 H Lymphocytes # (Manual) 0.9 L POC ABG pH POC ABG pCO2 Sodium 146 H 148 H Potassium Carbon Dioxide 15 L 12 L BUN 68 H 76 H Creatinine 9.9 H 10.8 H Glucose 108 H 118 H Lactic Acid Calcium 7.9 L 8.0 L Phosphorus Troponin T C-Reactive Protein Total Protein Albumin LDL Cholesterol Direct HDL Cholesterol 04/18/17 10:10 WBC RBC Hgb Hct MCH MCHC RDW Lymph % (Auto) [place] % (Auto) Lymph # [place] # Seg Neutrophils % Seg Neuts % (Manual) Lymphocytes % (Manual) Seg Neutrophils # Seg Neutrophils # Man Lymphocytes # (Manual) POC ABG pH 7.109 L POC ABG pCO2 30.1 L Sodium Potassium Carbon Dioxide BUN Creatinine Glucose Lactic Acid Calcium Phosphorus Troponin T C-Reactive Protein Total Protein Albumin LDL Cholesterol Direct HDL Cholesterol Chest x-ray: image reviewed (Upper lobe mass, ETT in position) Allied health notes reviewed: RT Critical care time in (mins) excluding proc time.: 45 Critical care attestation.: If time is entered above; I have spent that time in minutes in the direct care of this critically ill patient, excluding procedure time.
--- NOTE | 2017-04-18 18:42 | Progress Note ---
Subjective Principal diagnosis: Severe Sepsis; Acute COPD exacerbation; ESRD on Dialysis Interval history: Patient was seen today for follow-up on multiple renal related issues, around 1 PM of afternoon interim he has been intubated Chronically hypotensive currently on sterile as well as midodrine Vitals labs intake output medications were reviewed Social history: Reviewed Allergies: Reviewed Family history: Reviewed Physical examination HEENT: Oral mucosa moist no pallor or icterus Neck: Supple no JVD Chest:bilateral basilar crackles CVS: Regular rate and rhythm S1 and S2 heard Abdomen: Soft nontender no suprapubic masses no organomegaly appreciable Extremity: Dry skin less than 1+ peripheral edema Musculoskeletal: No joint effusion noted in knees and ankle Neurological: Alert awake Dermatology: No petechial rashes Psychiatry: No evidence of any agitation and aggression noted Assessment and plan End stage renal disease: Patient has been intubated and has bilateral crackles borderline blood pressure, discussed with ICU nurse will consider hemodialysis as tolerated for now will keep a low threshold to discontinue if he does not tolerate this, discussed with dialysis nurse [place] for hemodialysis today Hypotension: I believe his quality of life is very poor patient is very frail currently on midodrine as well as hydrocortisone clinically appears to be doing somewhat better Anemia and end-stage renal disease: To monitor and follow Respiratory failure currently intubated bilateral crackles wheezes Hemoglobin currently 7.5 platelet count 397,000 Mild hyperglycemia to follow Metabolic acidosis with elevated lactate level in the setting of respiratory failure to follow Overall prognosis very poor according to nurse patient has been made allowed natural and plan is for hospice as I'm explained History of underlying dementia, HIV disease, coronary artery disease Enlarging lung mass possible malignancy needs to be ruled out Advanced age many comorbidities poor quality of life this needs to be addressed and goals of care needs to be established here Hypotension chronic ,patient transferred to ICU needs close monitoring currently on vasopressor as well as IV albumin. Patient is also on hydrocortisone as well as ProAmatine for hypotension, is going to be high risk for cardiovascular collapse hemodynamic problems during hemodialysis We'll continue to follow and make recommendation from renal standpoint Objective - Vital Signs Vital signs: Vital Signs - 12hr 04/18/17 04/18/17 04/18/17 07:38 07:51 08:18 Temperature 97.4 F L Pulse Rate 105 H Pulse Rate [ From Monitor] Respiratory 18 Rate Blood Pressure 99/41 111/48 O2 Sat by Pulse 74 L 94 Oximetry 04/18/17 04/18/17 04/18/17 08:20 08:30 08:41 Temperature Pulse Rate 108 H 105 H Pulse Rate [ From Monitor] Respiratory 24 26 H Rate Blood Pressure 111/48 175/65 O2 Sat by Pulse 99 100 Oximetry 04/18/17 04/18/17 04/18/17 08:51 09:01 09:11 Temperature Pulse Rate 103 H 96 H 99 H Pulse Rate [ From Monitor] Respiratory 31 H 20 31 H Rate Blood Pressure 154/68 154/68 96/50 O2 Sat by Pulse 100 100 Oximetry 04/18/17 04/18/17 04/18/17 09:16 09:17 09:21 Temperature 97.4 F L Pulse Rate 97 H Pulse Rate [ 101 H From Monitor] Respiratory 27 H 27 H Rate Blood Pressure 96/50 O2 Sat by Pulse 98 95 Oximetry 04/18/17 04/18/17 04/18/17 09:30 09:41 09:51 Temperature Pulse Rate 102 H 96 H 93 H Pulse Rate [ From Monitor] Respiratory 26 H 31 H 26 H Rate Blood Pressure 117/45 117/45 104/29 O2 Sat by Pulse 100 100 100 Oximetry 04/18/17 04/18/17 04/18/17 10:00 10:10 10:20 Temperature Pulse Rate 96 H 97 H 101 H Pulse Rate [ From Monitor] Respiratory 22 22 34 H Rate Blood Pressure 130/51 130/51 O2 Sat by Pulse 98 96 97 Oximetry 04/18/17 04/18/17 04/18/17 10:30 10:40 10:50 Temperature Pulse Rate 97 H 104 H 105 H Pulse Rate [ From Monitor] Respiratory 24 17 32 H Rate Blood Pressure 121/40 123/31 144/33 O2 Sat by Pulse 96 95 94 Oximetry 04/18/17 04/18/17 04/18/17 11:00 11:10 11:20 Temperature Pulse Rate 100 H 87 88 Pulse Rate [ From Monitor] Respiratory 28 H 24 22 Rate Blood Pressure 120/41 120/41 105/48 O2 Sat by Pulse 95 100 99 Oximetry 04/18/17 04/18/17 04/18/17 11:30 11:40 11:50 Temperature Pulse Rate 112 H 87 89 Pulse Rate [ From Monitor] Respiratory 33 H 24 24 Rate Blood Pressure 105/48 142/62 100/44 O2 Sat by Pulse 94 99 98 Oximetry 04/18/17 04/18/17 04/18/17 12:00 12:10 12:20 Temperature 97.4 F L Pulse Rate 82 83 83 Pulse Rate [ 82 From Monitor] Respiratory 27 H 21 21 Rate Blood Pressure 99/47 99/47 102/46 O2 Sat by Pulse 100 100 99 Oximetry 04/18/17 04/18/17 04/18/17 12:30 12:40 12:50 Temperature Pulse Rate 81 82 81 Pulse Rate [ From Monitor] Respiratory 22 23 22 Rate Blood Pressure 101/41 101/41 98/30 O2 Sat by Pulse 100 100 100 Oximetry 04/18/17 04/18/17 04/18/17 13:00 13:10 13:20 Temperature Pulse Rate 81 81 90 Pulse Rate [ From Monitor] Respiratory 22 21 23 Rate Blood Pressure 100/41 100/41 100/41 O2 Sat by Pulse 100 100 Oximetry 04/18/17 04/18/17 04/18/17 13:30 13:40 13:50 Temperature Pulse Rate 96 H 86 87 Pulse Rate [ From Monitor] Respiratory 17 22 24 Rate Blood Pressure 113/44 113/44 112/45 O2 Sat by Pulse 91 49 L Oximetry 04/18/17 04/18/17 04/18/17 14:00 14:10 14:20 Temperature Pulse Rate 84 94 H 88 Pulse Rate [ From Monitor] Respiratory 27 H 22 25 H Rate Blood Pressure 124/49 124/49 115/37 O2 Sat by Pulse 100 100 100 Oximetry 04/18/17 04/18/17 04/18/17 14:30 14:40 14:50 Temperature Pulse Rate 85 85 84 Pulse Rate [ From Monitor] Respiratory 23 26 H 25 H Rate Blood Pressure 117/45 117/45 114/44 O2 Sat by Pulse 100 100 100 Oximetry 04/18/17 04/18/17 04/18/17 15:00 15:10 15:20 Temperature Pulse Rate 95 H 115 H 101 H Pulse Rate [ From Monitor] Respiratory 21 24 23 Rate Blood Pressure 126/47 126/47 129/22 O2 Sat by Pulse 99 92 98 Oximetry 04/18/17 04/18/17 04/18/17 15:30 15:40 15:50 Temperature Pulse Rate 103 H 108 H 103 H Pulse Rate [ From Monitor] Respiratory 29 H 23 25 H Rate Blood Pressure 107/53 107/53 107/53 O2 Sat by Pulse 98 93 96 Oximetry 04/18/17 04/18/17 04/18/17 16:00 16:10 17:45 Temperature 97.6 F Pulse Rate 103 H 95 H 87 Pulse Rate [ 103 H From Monitor] Respiratory 27 H 27 H Rate Blood Pressure 125/36 125/36 105/47 O2 Sat by Pulse 98 99 95 Oximetry 04/18/17 04/18/17 17:54 18:00 Temperature Pulse Rate Pulse Rate [ From Monitor] Respiratory 18 Rate Blood Pressure O2 Sat by Pulse 97 96 Oximetry - Lab 04/18/17 04:00 04/18/17 04:00 Most recent lab results Calcium 8.0 mg/dL (8.4-10.2) L 04/18/17 04:00 Phosphorus 5.40 mg/dL (2.5-4.5) H 04/15/17 16:43 Magnesium 1.90 mg/dL (1.7-2.3) 04/15/17 16:43
[2017-04-18] MEDS: PROVENTIL IH SCH (20:10)
[2017-04-19] MEDS: FLAGYL 500 MG/100 ML 500 MG/100 ML BAG IV SCH ×2 (00:33→10:00)
[2017-04-19 01:22] LABS: Hematocrit 22.4 % (35.5-45.6); Mean Corpuscular HGB Conc 31 % (32-34); Mean Corpuscular Hemoglobin 28 pg (28-32); Mean Corpuscular Volume 88 fl (84-94); Platelet Count 371 K/mm3 (140-440); Red Blood Count 2.54 M/mm3 (3.65-5.03)
[2017-04-19 01:27] LABS: Red Cell Distribution Width 22.2 % (13.2-15.2)
[2017-04-19 01:35] LABS: Calcium 8.2 mg/dL (8.4-10.2)
[2017-04-19 02:15] LABS: Basophils % (Manual) 0 % (0.0-1.8); Eosinophils % (Manual) 0 % (0.0-4.3); Total Cells Counted 100
[2017-04-19 02:18] LABS: Anisocytosis 1+; Platelet Estimate Consistent w Auto; Target Cells Few
[2017-04-19] MEDS: PROAMATINE PO SCH ×2 (02:30→11:30)
--- NOTE | 2017-04-19 03:54 | XRay Report ---
FINAL REPORT PROCEDURE: XR CHEST 1V AP TECHNIQUE: Chest radiograph anteroposterior view. CPT 07421 HISTORY: follow up respiratory failure COMPARISON: 12/08/2016 FINDINGS: Heart: Heart size is normal to slightly enlarged. Mediastinum/Vessels: Normal. Lungs/Pleural space: There are bilateral perihilar and lower lobe infiltrates greater on the left. There are small bilateral pleural effusions. There is no pneumothorax. Lung status has worsened since prior study.. Bony thorax: No acute osseous abnormality. Life support devices: None. IMPRESSION: There are bilateral perihilar and lower lobe infiltrates greater on the left. There are small bilateral pleural effusions. There is no pneumothorax..
[2017-04-19] MEDS: PROVENTIL IH SCH ×3 (04:00→13:40)
[2017-04-19] MEDS: PULMICORT IH SCH (08:20)
[2017-04-19] MEDS: BROVANA NEBU IH SCH (08:20)
--- NOTE | 2017-04-19 09:09 | Progress Note ---
Subjective Principal diagnosis: Severe Sepsis; Acute COPD exacerbation; ESRD on Dialysis Interval history: Patient was seen today for follow-up on multiple renal related issues, around 1 PM of afternoon Currently extubated status post hemodialysis yesterday Vitals labs intake output medications were reviewed Social history: Reviewed Allergies: Reviewed Family history: Reviewed Physical examination HEENT: Oral mucosa moist no pallor or icterus Neck: Supple no JVD Chest:bilateral basilar crackles CVS: Regular rate and rhythm S1 and S2 heard Abdomen: Soft nontender no suprapubic masses no organomegaly appreciable Extremity: Dry skin less than 1+ peripheral edema Musculoskeletal: No joint effusion noted in knees and ankle Neurological: Alert awake Dermatology: No petechial rashes Psychiatry: No evidence of any agitation and aggression noted Assessment and plan End stage renal disease: End-stage renal disease: Status post hemodialysis yesterday, will consider ultrafiltration approximately 2 kg today Hypotension chronic stable on hydrocortisone as well as midodrine. Anemia in end-stage renal disease: To monitor and follow Respiratory failure currently extubated Fluid overload: Ultrafiltration alone today as tolerated Overall long-term prognosis appears to be poor Continue with supportive care Palliative care hospice appropriate Overall prognosis very poor, family needs to be involved in patient's care plan History of underlying dementia, HIV disease, coronary artery disease Enlarging lung mass possible malignancy needs to be ruled out Objective - Vital Signs Vital signs: Vital Signs - 12hr 04/18/17 04/18/17 04/18/17 21:15 21:30 21:45 Temperature Pulse Rate 90 74 73 Pulse Rate [ Anterior Bilateral Throughout] Respiratory Rate Respiratory Rate [Anterior Bilateral Throughout] Blood Pressure 102/36 92/42 88/37 O2 Sat by Pulse Oximetry O2 Sat by Pulse Oximetry [ Anterior Bilateral Throughout] 04/18/17 04/18/17 04/18/17 22:00 22:15 22:18 Temperature Pulse Rate 79 88 80 Pulse Rate [ Anterior Bilateral Throughout] Respiratory 21 20 Rate Respiratory Rate [Anterior Bilateral Throughout] Blood Pressure 95/44 95/44 90/44 O2 Sat by Pulse 96 96 Oximetry O2 Sat by Pulse Oximetry [ Anterior Bilateral Throughout] 04/18/17 04/18/17 04/18/17 22:30 23:00 23:08 Temperature 97.4 F L Pulse Rate 77 70 87 Pulse Rate [ Anterior Bilateral Throughout] Respiratory 20 25 H Rate Respiratory Rate [Anterior Bilateral Throughout] Blood Pressure 87/35 104/46 104/46 O2 Sat by Pulse 95 Oximetry O2 Sat by Pulse 91 Oximetry [ Anterior Bilateral Throughout] 04/19/17 04/19/17 04/19/17 00:00 01:00 02:00 Temperature 97.3 F L Pulse Rate 87 77 86 Pulse Rate [ Anterior Bilateral Throughout] Respiratory 20 18 19 Rate Respiratory Rate [Anterior Bilateral Throughout] Blood Pressure 108/55 96/34 103/42 O2 Sat by Pulse 90 95 94 Oximetry O2 Sat by Pulse Oximetry [ Anterior Bilateral Throughout] 04/19/17 04/19/17 04/19/17 03:00 04:00 05:00 Temperature Pulse Rate 87 80 98 H Pulse Rate [ 86 Anterior Bilateral Throughout] Respiratory 24 26 H 24 Rate Respiratory 24 Rate [Anterior Bilateral Throughout] Blood Pressure 110/35 112/39 105/43 O2 Sat by Pulse 82 L 98 92 Oximetry O2 Sat by Pulse Oximetry [ Anterior Bilateral Throughout] 04/19/17 04/19/17 04/19/17 06:00 07:00 08:00 Temperature 97.9 F Pulse Rate 97 H 96 H 84 Pulse Rate [ Anterior Bilateral Throughout] Respiratory 28 H 22 28 H Rate Respiratory Rate [Anterior Bilateral Throughout] Blood Pressure 109/47 109/54 105/42 O2 Sat by Pulse 94 96 96 Oximetry O2 Sat by Pulse Oximetry [ Anterior Bilateral Throughout] 04/19/17 04/19/17 04/19/17 08:19 08:20 08:35 Temperature Pulse Rate Pulse Rate [ 87 98 H Anterior Bilateral Throughout] Respiratory Rate Respiratory 16 24 Rate [Anterior Bilateral Throughout] Blood Pressure O2 Sat by Pulse 94 Oximetry O2 Sat by Pulse Oximetry [ Anterior Bilateral Throughout] - Lab 04/19/17 Unknown 04/19/17 Unknown Most recent lab results Calcium 8.2 mg/dL (8.4-10.2) L 04/19/17 Unknown Phosphorus 5.40 mg/dL (2.5-4.5) H 04/15/17 16:43 Magnesium 1.90 mg/dL (1.7-2.3) 04/15/17 16:43
[2017-04-19] MEDS: VIRAMUNE PO SCH (11:24)
[2017-04-19] MEDS: HALFPRIN EC PO SCH (11:24)
[2017-04-19] MEDS: LOVENOX SUB-Q SCH (11:24)
[2017-04-19] MEDS: PEPCID PO SCH (11:24)
[2017-04-19] MEDS: NON-FORMULARY PO SCH (11:25)
[2017-04-19] MEDS: TIVICAY (NF) PO SCH (11:25)
[2017-04-19] MEDS: HYDROMET PO PRN (11:30)
--- NOTE | 2017-04-19 11:42 | Progress Note ---
Assessment and Plan Cardiopulmonary arrest on MVS s/p extubation Severe sepsis. Metabolic acidosis Left upper lobe lung mass, probable lung cancer. End-stage renal disease, on dialysis. Adult failure to thrive. Anemia. Elevated serum troponin. End-stage renal disease, on dialysis. - continue gentle hydration - continue empiric AB's, trend lactate and follow C&S - continue supplemental oxygen to keep sats > 90% - vasopressors if MAP remains < 60mmHg - continue GI & VTE prophylaxis - HD/UF per nephrology -VAP bundle addressed -NIPPV qhs and prn post extubation -continue other care per attending / other consultants -discharge to home hospice Subjective Date of service: 04/19/17 Principal diagnosis: Severe Sepsis; Acute COPD exacerbation; ESRD on Dialysis Interval history: Patient is seen today for: Severe Sepsis; Acute COPD exacerbation; ESRD on Dialysis Seen and examined at bedside; 24hour events reviewed; nursing and respiratory care staff consulted; no adverse overnight events reported to me; cardiorespiratory arrest this morning thought to be secondary to hypoxia, intubated transferred to ICU Seen and examined, vitals, labs, medications, chart reviewed. Discussed in interdisciplinary rounds Objective - Exam Narrative Exam: General appearance: Alert, chronically ill looking, Eyes: anicteric sclerae, moist conjunctivae, +sima iris lesions; no lid-lag; PERRLA HENT: Atraumatic; oropharynx Neck: Trachea midline; supple, no thyromegaly or lymphadenopathy Lungs: distant BS CV: RRR Abdomen: tense distended TTP in right flank Extremities: right arm AVF with ecchymoses Skin: Normal temperature, turgor and texture; no rash, ulcers or subcutaneous nodules Psych: anxious Neuro: awake, alert, non-focal Lines: No CVL / PICC Vital Signs - 12hr 04/19/17 04/19/17 04/19/17 00:00 01:00 02:00 Temperature 97.3 F L Pulse Rate 87 77 86 Pulse Rate [ Anterior Bilateral Throughout] Respiratory 20 18 19 Rate Respiratory Rate [Anterior Bilateral Throughout] Blood Pressure 108/55 96/34 103/42 O2 Sat by Pulse 90 95 94 Oximetry 04/19/17 04/19/17 04/19/17 03:00 04:00 05:00 Temperature Pulse Rate 87 80 98 H Pulse Rate [ 86 Anterior Bilateral Throughout] Respiratory 24 26 H 24 Rate Respiratory 24 Rate [Anterior Bilateral Throughout] Blood Pressure 110/35 112/39 105/43 O2 Sat by Pulse 82 L 98 92 Oximetry 04/19/17 04/19/17 04/19/17 06:00 07:00 08:00 Temperature 97.9 F Pulse Rate 97 H 96 H 84 Pulse Rate [ Anterior Bilateral Throughout] Respiratory 28 H 22 28 H Rate Respiratory Rate [Anterior Bilateral Throughout] Blood Pressure 109/47 109/54 105/42 O2 Sat by Pulse 94 96 96 Oximetry 04/19/17 04/19/17 04/19/17 08:19 08:20 08:35 Temperature Pulse Rate Pulse Rate [ 87 98 H Anterior Bilateral Throughout] Respiratory Rate Respiratory 16 24 Rate [Anterior Bilateral Throughout] Blood Pressure O2 Sat by Pulse 94 Oximetry 04/19/17 04/19/17 04/19/17 09:00 10:00 11:00 Temperature Pulse Rate 96 H 96 H 94 H Pulse Rate [ Anterior Bilateral Throughout] Respiratory 31 H 29 H 14 Rate Respiratory Rate [Anterior Bilateral Throughout] Blood Pressure 109/55 101/61 122/44 O2 Sat by Pulse 98 94 99 Oximetry Constitutional: no acute distress, alert Eyes: non-icteric ENT: oropharynx moist Neck: supple, no lymphadenopathy, no JVD, other (no thyromegaly) Effort: mildly labored Ascultation: Bilateral: diminished breath sounds, rhonchi Percussion: Bilateral: not dull Cardiovascular: regular rate and rhythm, murmur noted, other (no rubs) Gastrointestinal: normoactive bowel sounds, soft, non-tender, non-distended, other (No palpable HSM) Integumentary: normal Extremities: no cyanosis, no edema, pulses normal, no ischemia or petechiae Neurologic: normal mental status, non-focal exam, pupils equal and round, motor strength normal and Psychiatric: mood appropriate, affect normal CBC and BMP: 04/19/17 Unknown 04/19/17 Unknown ABG, PT/INR, D-dimer: ABG POC ABG pH 7.109 (7.35-7.45) L 04/18/17 10:10 POC ABG pCO2 30.1 (35-45) L 04/18/17 10:10 POC ABG pO2 102 (80-105) 04/18/17 10:10 POC ABG HCO3 9.5 04/18/17 10:10 POC ABG Total CO2 10 04/18/17 10:10 POC ABG O2 Sat 95 04/18/17 10:10 Abnormal lab findings: Abnormal Labs 04/14/17 04/14/17 04/14/17 11:28 11:28 11:30 WBC 11.9 H RBC 3.00 L Hgb 8.3 L Hct 26.9 L MCH MCHC 31 L RDW 21.9 H Lymph % (Auto) 11.0 L [place] % (Auto) 10.4 H Lymph # [place] # 1.2 H Seg Neutrophils % 78.1 H Seg Neuts % (Manual) Lymphocytes % (Manual) Nucleated RBC % Seg Neutrophils # 9.3 H Seg Neutrophils # Man Lymphocytes # (Manual) POC ABG pH POC ABG pCO2 Sodium Potassium 3.5 L Chloride Carbon Dioxide BUN 45 H Creatinine 8.0 H Glucose Lactic Acid Calcium Phosphorus Troponin T 0.180 H* C-Reactive Protein Total Protein 5.9 L Albumin 2.5 L LDL Cholesterol Direct 32 L HDL Cholesterol 36 L 04/14/17 04/14/17 04/14/17 11:51 23:02 23:55 WBC RBC Hgb Hct MCH MCHC RDW Lymph % (Auto) [place] % (Auto) Lymph # [place] # Seg Neutrophils % Seg Neuts % (Manual) Lymphocytes % (Manual) Nucleated RBC % Seg Neutrophils # Seg Neutrophils # Man Lymphocytes # (Manual) POC ABG pH POC ABG pCO2 Sodium Potassium Chloride Carbon Dioxide BUN Creatinine Glucose Lactic Acid 3.10 H* 2.70 H* 2.30 H* Calcium Phosphorus Troponin T C-Reactive Protein Total Protein Albumin LDL Cholesterol Direct HDL Cholesterol 04/15/17 04/15/17 04/15/17 00:56 16:43 16:43 WBC RBC Hgb Hct MCH MCHC RDW Lymph % (Auto) [place] % (Auto) Lymph # [place] # Seg Neutrophils % Seg Neuts % (Manual) Lymphocytes % (Manual) Nucleated RBC % Seg Neutrophils # Seg Neutrophils # Man Lymphocytes # (Manual) POC ABG pH POC ABG pCO2 Sodium Potassium Chloride Carbon Dioxide BUN Creatinine Glucose Lactic Acid 3.20 H* Calcium Phosphorus 5.40 H Troponin T C-Reactive Protein 21.90 H Total Protein Albumin LDL Cholesterol Direct HDL Cholesterol 04/15/17 04/16/17 04/16/17 17:25 04:04 04:04 WBC 14.4 H RBC 2.77 L Hgb 7.6 L Hct 25.2 L MCH MCHC 30 L RDW 21.9 H Lymph % (Auto) [place] % (Auto) Lymph # [place] # Seg Neutrophils % Seg Neuts % (Manual) 76.0 H Lymphocytes % (Manual) 8.0 L Nucleated RBC % Seg Neutrophils # Seg Neutrophils # Man 10.9 H Lymphocytes # (Manual) POC ABG pH POC ABG pCO2 32.5 L Sodium Potassium Chloride Carbon Dioxide 18 L BUN 61 H Creatinine 9.6 H Glucose 127 H Lactic Acid Calcium Phosphorus Troponin T C-Reactive Protein Total Protein Albumin LDL Cholesterol Direct HDL Cholesterol 04/16/17 04/16/17 04/17/17 04:04 16:11 03:49 WBC 13.7 H RBC Hgb 10.8 L D Hct MCH 27 L MCHC 30 L RDW 21.6 H Lymph % (Auto) 4.9 L [place] % (Auto) Lymph # 0.7 L [place] # Seg Neutrophils % 89.2 H Seg Neuts % (Manual) Lymphocytes % (Manual) Nucleated RBC % Seg Neutrophils # 12.2 H Seg Neutrophils # Man Lymphocytes # (Manual) POC ABG pH POC ABG pCO2 Sodium Potassium Chloride Carbon Dioxide BUN Creatinine Glucose Lactic Acid 2.70 H* Calcium Phosphorus Troponin T C-Reactive Protein 15.00 H Total Protein Albumin LDL Cholesterol Direct HDL Cholesterol 04/17/17 04/18/17 04/18/17 03:49 04:00 04:00 WBC 14.3 H RBC 2.69 L Hgb 7.5 L D Hct 25.2 L D MCH MCHC 30 L RDW 22.6 H Lymph % (Auto) [place] % (Auto) Lymph # [place] # Seg Neutrophils % Seg Neuts % (Manual) 88.0 H Lymphocytes % (Manual) 6.0 L Nucleated RBC % Seg Neutrophils # Seg Neutrophils # Man 12.6 H Lymphocytes # (Manual) 0.9 L POC ABG pH POC ABG pCO2 Sodium 146 H 148 H Potassium Chloride Carbon Dioxide 15 L 12 L BUN 68 H 76 H Creatinine 9.9 H 10.8 H Glucose 108 H 118 H Lactic Acid Calcium 7.9 L 8.0 L Phosphorus Troponin T C-Reactive Protein Total Protein Albumin LDL Cholesterol Direct HDL Cholesterol 04/18/17 04/19/17 04/19/17 10:10 Unknown Unknown WBC 18.4 H RBC 2.54 L Hgb 7.0 L Hct 22.4 L MCH MCHC 31 L RDW 22.2 H Lymph % (Auto) [place] % (Auto) Lymph # [place] # Seg Neutrophils % Seg Neuts % (Manual) 91.0 H Lymphocytes % (Manual) 5.0 L Nucleated RBC % 1.0 H Seg Neutrophils # Seg Neutrophils # Man 16.7 H Lymphocytes # (Manual) 0.9 L POC ABG pH 7.109 L POC ABG pCO2 30.1 L Sodium Potassium 3.3 L Chloride 97.5 L Carbon Dioxide BUN 34 H Creatinine 5.5 H Glucose Lactic Acid Calcium 8.2 L Phosphorus Troponin T 0.136 H* D C-Reactive Protein Total Protein Albumin LDL Cholesterol Direct HDL Cholesterol Allied health notes reviewed: RT
[2017-04-19] MEDS: LEVOPHED DRIP 4 MG/NS 250 ML 4 MG/250 ML BAG IV SCH (12:00)
--- NOTE | 2017-04-19 12:55 | Discharge Summary ---
Providers - Providers Date of Admission: 04/14/17 19:10 Date of discharge: 04/19/17 Attending physician: BENTLEY JOHNSON 04/14/17 20:19 Consult to Physician [CONS] Routine Consulting Provider: RITU TOSCANO Reason For Exam: ESRD Place consult to:: Dr. Toscano Notified:: Evelia SIMONS Phone number called:: Was contact made?: Yes If yes, spoke with:: Natalie-answering service Time called:: 08:44 04/15/17 09:44 Consult to Physician [CONS] Routine Consulting Provider: JERRY GALLO Reason For Exam: sepsis, HIV Place consult to:: Dr. Mazariegos Notified:: Evelia SIMONS Phone number called:: Was contact made?: Yes If yes, spoke with:: Jeni-answering service Time called:: 11:34 04/15/17 15:20 Consult to Physician [CONS] Urgent Consulting Provider: LYLY SZYMANSKI Reason For Exam: critical care management Place consult to:: Notified:: [id number] Phone number called:: notified in person Was contact made?: Yes If yes, spoke with:: yes Time called:: 15:22 04/17/17 20:35 Consult to Wound/ET Nurse [CONS] Routine Reason For Exam: wound eval 04/18/17 08:40 Consult to Dietitian/Nutrition [CONS] Routine Physician Instructions: Reason For Exam: Reason for Consult: Evaluate nutritional intake Primary care physician: INDIRECT SALES REPRESENTATIVE Hospitalization Condition: Poor Hospital course: Patient on 82 yo man from Home [facility] (Home Hospice was ordered but never begun because he was still on hemodialysis and did not want to sign the waiver to stop dialysis), with history of chronic Hypotension, MA, spontaneous PTX, GERD, 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 He was transferred out of ICU yesterday. Kapil Handy was called today (prior to me seeing patient on this admission). It appears patient was on bipap all night and he was transitioned to nasal canula, he was doing ok per Michael, Respiratory therapist. Then patient removed the nasal cannula himself, he became cyanotic, hypoxic and leading to a respiratory arrest. He was successfully intubated and moved back to the ICU. 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 IV antibiotics, initial lactic acid elevated. F/U blood cultures, ESRD (end stage renal disease) Nephrology following, monitor uop q shift, daily weight, dialysis as per renal team. Severe malnutrition Encourage oral intake when awake and alert only. Toxic metabolic Encephalopathy CT Head, neuro checks, IVF resuscitation, supportive care. Cont. to treat underlying causes Acute hypoxemic respiratory failure Supplemental oxygen, nebulizer, NIPPV as clinically indicated. COPD with acute exacerbation Nebulizers, oxygen, Cont IV steroids (Solumedrol 40mg BID), Cont. IV antibiotics , supportive care h/o lung mass pt was evaluated by pulmonology in the past, family refused aggressive workup and management History of HIV/AIDS Continue current antiretroviral therapy, ID evaluation Anemia of chronic disease Procrit during dialysis, transfuse as needed DVT prophylaxis d/w Friend, Hong at bedside, not son nor patient's brother. Patient doesn't have kids, parents or significant other. Patient has 2 siblings, a sister name Rebeca, and brother Tomas Blandon [phone], both have given Hong the authority to make medical decision per Silvio from [facility]. Trying to extubated 04/18/17 then inpatient Hospice. The lung cancer appears to be getting worse per CXR DNR per decision with Welda at bedside. Home Hospice has been setup and he has signed to discontinue hemodialysis. I will discharge home with hospice Disposition: DC-50 TO HOSPICE (HOME) Time spent for discharge: 34 minutes Core Measure Documentation - Palliative Care Palliative Care/ Comfort Measures: Not Applicable - Core Measures Any of the following diagnoses?: none - VTE Discharge Requirements Deep Vein Thrombosis/Pulmonary Embolism Present on Admission: No Has pt received <5 days of overlap therapy or INR<2.0: No Anticoagulant overlap therapy prescribed at discharge: No Contraindication No Overlap Therapy order at DC: Not Indicated Exam - Physical Exam Narrative exam: GEN: Cachectic, chronically debilitated appearing, Unresponsive, not moving not breathing HEENT: NCAT, pupils sluggish NECK: supple, no adenopathy, no thyromegaly, no JVD CVS/HEART: Pulseless CHEST/LUNGS: Symmetrical chest expansion with Ambu bagging - Constitutional Vitals: Temp Pulse Resp BP Pulse Ox 98.3 F 94 H 14 122/44 99 04/19/17 12:00 04/19/17 11:00 04/19/17 11:00 04/19/17 11:00 04/19/17 11:00 Plan Activity: fall precautions Follow up with: PRIMARY CARE, [Primary Care Provider] - 3-5 Days
[2017-04-19 17:10] VITALS: BP 104/45
== END 2017-04-19 15:00 | disposition home or self-care (01) | DRG 974 ==
LOC: ED 10:38 → 4A 19:10 → CC1 04-16 01:48 → 3A 04-17 16:50 → CC1 04-18 08:10
PROVIDERS: ADMIT Internal Medicine; ATTEND Internal Medicine
PROC: 05HN33Z Insertion of Infusion Device into Left Internal Jugular Vein, Percutaneous Approach (ICD-10-PCS; 2017-04-14)
PROC: 05HB33Z Insertion of Infusion Device into Right Basilic Vein, Percutaneous Approach (ICD-10-PCS; 2017-04-16)
PROC: B54MZZA Ultrasonography of Right Upper Extremity Veins, Guidance (ICD-10-PCS; 2017-04-16)
PROC: 4A033R1 Measurement of Arterial Saturation, Peripheral, Percutaneous Approach (ICD-10-PCS; principal; 2017-04-18)
PROC: 5A1935Z Respiratory Ventilation, Less than 24 Consecutive Hours (ICD-10-PCS; 2017-04-18)
PROC: 0BH18EZ Insertion of Endotracheal Airway into Trachea, Via Natural or Artificial Opening Endoscopic (ICD-10-PCS; 2017-04-18)
PROC: 5A1D70Z Performance of Urinary Filtration, Intermittent, Less than 6 Hours Per Day (ICD-10-PCS; 2017-04-18)
DX: B20 Human immunodeficiency virus [HIV] disease (principal); A41.9 Sepsis, unspecified organism; N18.6 End stage renal disease; E43 Unspecified severe protein-calorie malnutrition; J96.01 Acute respiratory failure with hypoxia; G92 Toxic encephalopathy; R65.21 Severe sepsis with septic shock; I46.8 Cardiac arrest due to other underlying condition; J18.9 Pneumonia, unspecified organism; Z68.1 Body mass index [BMI] 19.9 or less, adult; I13.2 Hypertensive heart and chronic kidney disease with heart failure and with stage 5 chronic kidney disease, or end stage renal disease; J44.1 Chronic obstructive pulmonary disease with (acute) exacerbation; Z99.2 Dependence on renal dialysis; F03.90 Unspecified dementia, unspecified severity, without behavioral disturbance, psychotic disturbance, mood disturbance, and anxiety; J44.9 Chronic obstructive pulmonary disease, unspecified; I50.9 Heart failure, unspecified; M19.90 Unspecified osteoarthritis, unspecified site; I25.2 Old myocardial infarction; Z87.891 Personal history of nicotine dependence; Z82.49 Family history of ischemic heart disease and other diseases of the circulatory system; Z79.82 Long term (current) use of aspirin; D63.8 Anemia in other chronic diseases classified elsewhere; I25.10 Atherosclerotic heart disease of native coronary artery without angina pectoris; R91.8 Other nonspecific abnormal finding of lung field; D63.1 Anemia in chronic kidney disease; I07.1 Rheumatic tricuspid insufficiency; I27.20 Pulmonary hypertension, unspecified; C80.1 Malignant (primary) neoplasm, unspecified
CPT/HCPCS: 36415; 36600; 70450; 71045; 80048; 80053; 80061; 80202; 82140; 82803; 83735; 84100; 84484; 85007; 85025; 86140; 87040; 92950; 93005; 93010; 94002; 94640; 94660; 94760; J1650; J1720; J1956; J2310; J2405; J2543; J2704; J2920; J3370; J7030; J7040; P9045